=== PATIENT | female | born 1945 | race Caucasian/White ===

== ENCOUNTER 2020-10-12 08:19 | Outpatient (REF) | payer MEDICARE, OTHER, SELFPAY ==
[2020-10-12 10:44] LABS: Appearance Urine CLOUDY; Color Urine YELLOW; Glucose Urine UA NEG (NEG); Leukocyte Esterase Urine 3+ (NEG); Nitrite Urine NEG (NEG); PH 7.5 (5.0-8.0); Urine Blood NEG (NEG); Urine Ketones NEG (NEG); Urine Protein NEG (NEG-TRACE)
[2020-10-12 10:46] LABS: Hematocrit 45.6 % (37-47); Hemoglobin 14.3 g/dl (12.0-16.0); Mean Corpuscular HGB Conc 31.4 g/dl (31.0-35.0); Mean Corpuscular Hemoglobin 26.7 pg (27.0-33.0); Mean Corpuscular Volume 85.2 fL (80-98); Mean Platelet Volume 10.3 fL (9.4-12.3); Platelet Count 307 X10*3/uL (160-400); Red Blood Count 5.35 X10*6/uL (4.20-5.50); White Blood Count 6.4 X10*3/uL (4.8-10.8)
[2020-10-12 11:09] LABS: Alanine Aminotransferase 15 U/L (0-31); Albumin Level 4.8 g/dL (3.5-5.0); Alkaline Phosphatase 94 U/L (39-117); Amorphous Sediment Urine 2+ /LPF; Anion Gap 13 (12-20); Aspartate Amino Transferase 25 U/L (5-31); Bacteria Urine 2+ /LPF; Bilirubin Total 0.5 mg/dL (0.0-1.0); Blood Urea Nitrogen 15 mg/dL (9-16); Calcium 9.4 mg/dL (8.4-10.2); Carbon Dioxide 30 mmol/L (22-29); Chloride 101 mmol/L (96-108); Cholesterol 163 mg/dL; Estimated Glomerular Filt Rate > 60; Glucose Fasting 92 mg/dL (60-99); HDL Cholesterol 53 mg/dL; LDL Cholesterol Calculated 79 mg/dl; Potassium 4.6 mmol/l (3.3-5.1); RBC Urine 0 /HPF (0); Sodium 139 mmol/L (135-145); Squamous Epithelial Cell Urine 4+ /LPF; Total Protein 7.3 g/dL (6.5-8.0); Triglycerides 156 mg/dL
[2020-10-12 11:29] LABS: Vitamin D 25-OH Total 47.1 ng/mL (>30)
== END 2020-10-12 08:20 | disposition home or self-care (01) ==
LOC: HO.10HDL 08:19
PROVIDERS: PCP Internal Medicine; Visit Provider Internal Medicine
DX: E78.2 Mixed hyperlipidemia (principal); I10 Essential (primary) hypertension; R73.01 Impaired fasting glucose; K21.9 Gastro-esophageal reflux disease without esophagitis; E55.9 Vitamin D deficiency, unspecified
CPT/HCPCS: 36415; 80053; 80061; 81001; 82306; 84443; 85027

== ENCOUNTER 2020-11-11 13:52 | Outpatient (REF) | payer MEDICARE, OTHER, SELFPAY ==
--- NOTE | 2020-11-11 14:02 | MM_ITS ---
EXAMINATION: BONE DENSITOMETRY CLINICAL INDICATION: Asymptomatic menopausal state. COMPARISON: Previous BD dated 02/10/2014 (spine), 07/02/2018 (left hip) and baseline BD dated 09/14/2006. TECHNIQUE: Using a [employer] DXA System (software version: 13.1) manufactured by [employer], dual-energy x-ray absorptiometry was performed of the lumbar spine and left hip. The images are of good technical quality. Summary results are attached. FINDINGS: AP SPINE L1-L4: Current: BMD 1.103 g/cm2, Z-score 1.4, T-score -0.6, normal, 2.5% increase from previous, 11.0% increase from baseline (<5% change is not significant). Prior: BMD 1.076 g/cm2. Baseline: BMD 0.994 g/cm2. LEFT FEMUR, NECK: Current: BMD 0.719 g/cm2, Z-score -0.2, T-score -2.3, osteopenia. Prior: BMD 0.734 g/cm2. Baseline: BMD 0.799 g/cm2. LEFT FEMUR, TOTAL: Current: BMD 0.888 g/cm2, Z-score 1.0, T-score -0.9, normal, 3.4% decrease from previous, 5.6% decrease from baseline (<5% change is not significant). Prior: BMD 0.919 g/cm2. Baseline: BMD 0.941 g/cm2. IDENTIFIED RISK FACTORS: Menopause. HISTORY OF FRACTURE: Other. MEDICATIONS: Calcium supplements or multivitamin, vitamin D, ERT/SERMS. MM/XR DEXA axial skeleton IMPRESSION: 1. DIAGNOSIS: Osteopenia based on the lowest T-score value of -2.3 in the femoral neck applying World Health Organization criteria. 2. 10-YEAR FRACTURE RISK PREDICTION, FRAX: The patient's 10-year probability of a major osteoporotic fracture, defined as a clinical spine, forearm, hip or shoulder fracture is 22.2% and the patient's 10-year probability of hip fracture is 6.0%. 3. Treatment Recommendations: NOF guidelines recommend consideration for treatment in postmenopausal women and men age 50 and older presenting with the following: -A hip or vertebral (clinical or morphometric) fracture. -T-score less than or equal to -2.5 at the femoral neck or spine after appropriate evaluation to exclude secondary causes. -Low bone mass at the hip or spine and a 10-year fracture probability by FRAX of greater than or equal to 3% for hip fracture or greater than or equal to 20% for major osteoporotic fracture based on the [place] adapted WHO algorithm. 4. Other Recommendations: All treatment decisions require clinical judgment and consideration of individual patient factors, including patient preferences, comorbidities, previous drug use, risk factors not captured in the FRAX model (e.g. frailty, falls, vitamin D deficiency, increased bone turnover, interval significant decline in bone density) and possible under or overestimation of fracture risk by FRAX. Additional medical evaluation for secondary cause of low bone mineral density may be appropriate. FUTURE SCAN RECOMMENDATION: People with diagnosed cases of osteoporosis or at high risk for fracture should have regular bone mineral density tests. For patients eligible for Medicare, routine testing is allowed once every 2 years. The testing frequency can be increased to one year for patients who have rapidly progressing disease, those who are receiving or discontinuing medical therapy to restore bone mass, or have additional risk factors.
--- NOTE | 2020-11-11 14:03 | MM_ITS ---
EXAMINATION: MM SCREENING DIGITAL BREAST TOMOSYNTHESIS, BILATERAL CLINICAL INFORMATION: Screening. Asymptomatic. The lifetime risk of breast cancer based on the Tyrer-Cuzick Model is 2%. COMPARISON: Mammography: 07/04/2018, 11/24/2015 TECHNIQUE: Digital breast tomosynthesis is performed in both the craniocaudal and mediolateral oblique views along with computer-aided detection (CAD). Synthesized 2D images are generated from the tomosynthesis. Additional left MLO view is provided. FINDINGS: There are scattered areas of fibroglandular density (ACR BI-RADS breast composition Category b). The right CC view has nodular asymmetric density mid outer quadrant 7 cm from nipple without correlate on MLO view. Patient will be recalled to further characterize. The remainder of the bilateral breasts show no significant mass or architectural abnormality or developing density. There are scattered benign round and coarse calcifications. Grouped coarse calcifications upper outer left breast are coarser on current imaging suggesting areas of degenerating fibroadenoma. The axilla and skin contours are unremarkable. MM/MM tomosynthesis screening BI IMPRESSION: 1. Right: Nodular asymmetric density mid outer breast on CC view. 2. Left: No mammographic evidence of malignancy. ASSESSMENT: BI-RADS 0: Incomplete - Need Additional Imaging Evaluation RECOMMENDATION: 1. Additional views of the right breast (3-D spot CC, 3-D rolled CC x2). 2. Targeted ultrasound if warranted after review of the additional views. 3. Radiology department staff will contact the patient for additional imaging. This patient's information was entered into a reminder system with a target due date for their next mammogram.
== END 2020-11-11 13:53 | disposition home or self-care (01) ==
LOC: HO.MAMMO 13:52
PROVIDERS: PCP Internal Medicine; Visit Provider Internal Medicine
DX: Z12.31 Encounter for screening mammogram for malignant neoplasm of breast (principal); Z13.820 Encounter for screening for osteoporosis; N95.9 Unspecified menopausal and perimenopausal disorder; Z78.0 Asymptomatic menopausal state
CPT/HCPCS: 77063; 77067; 77080

== ENCOUNTER 2020-12-13 09:20 | Outpatient (REF) | payer MEDICARE, OTHER, SELFPAY ==
--- NOTE | ~2020-12-13 | MM_ITS ---
EXAMINATION: MM DIAGNOSTIC DIGITAL BREAST TOMOSYNTHESIS, RIGHT CLINICAL INFORMATION: Recall from screening for nodular asymmetric density limited to one view at recent screening. TC score 2%. COMPARISON: Mammography: 11/11/2020, 07/04/2018, 11/24/2015. TECHNIQUE: Digital breast tomosynthesis is performed. 2D images are generated from the tomosynthesis. The following views are obtained: 3-D rolled CC x2, 3-D spot CC, 3-D ML. FINDINGS: There are scattered areas of fibroglandular density (ACR BI-RADS breast composition Category b). The additional views show no mass or architectural abnormality. The area of interest appears to splay of the additional views. As a precaution, patient will be reassessed again in 6 months to exclude the remote possibility of a developing density compared with prior 2-D imaging. Results are discussed with the patient at time of visit. MM/MM tomosynthesis added views R IMPRESSION: Additional views show no definite persistent asymmetric density. ASSESSMENT: BI-RADS 3: Probably Benign RECOMMENDATION: Diagnostic right mammography in 6 months. This patient's information was entered into a reminder system with a target due date for their next mammogram.
== END 2020-12-13 09:21 | disposition home or self-care (01) ==
LOC: HO.MAMMO 09:20
PROVIDERS: Visit Provider Internal Medicine
DX: R92.2 Inconclusive mammogram (principal)
CPT/HCPCS: 77061; 77065

== ENCOUNTER → 2021-01-12 08:12 | Outpatient (REF) | payer MEDICARE, OTHER, SELFPAY ==
--- NOTE | 2021-01-12 08:30 | CA_ITS ---
Transthoracic Echocardiogram Patient (Last, First, Middle): Richa Smith, Gender: Female Date of : 1945 Age: 75 Procedure Date: 01/12/2021 Procedure Type: Transthoracic Echocardiogram Location: OP Height: 147.32 cm Weight: 56.7 kg BSA: 1.49 m2 Heart Rate: bpm BP: 143 / 74 mmHg Workers Compensation Manager: LEATHA Lowe MD: Antoine Resendez MD Salesperson Floor Coverings: Antoine Resendez MD Symptoms: I35.0 NON RHEUMATIC AVS I10 HTN Study Quality: Fair ECG Rhythm: Sinus Conclusions: - 1. Normal LV systolic function with severe focal basal septal asymmetric hypertrophy without obstruction with impaired relaxation filling pattern 2. Moderate aortic stenosis 3. Normal RV systolic pressure 4. No pericardial effusion Findings Left Ventricle Normal left ventricular size, thickness, and systolic function. The visually estimated ejection fraction is between 60-65%. Spectral Doppler is indicative of an impaired relaxation filling pattern. E/E prime ratio is between 8 and 15 consistent with indeterminate filling pressures. Right Ventricle Normal right ventricular cavity size and systolic function. Atria Both atria are normal in size. Interatrial shunt cannot be excluded. Aortic Valve There is moderate calcification of the aortic valve. There is moderate aortic valve stenosis. The peak aortic gradient is 43 mmHg.The mean gradient is 24 mmHg. The aortic valve area is 0.85 cm2. There is no aortic valve regurgitation. Mitral Valve There is mild anterior and posterior mitral leaflet thickening. There is trace mitral valve regurgitation. There is no mitral valve stenosis. Tricuspid Valve Likely normal tricuspid valve structure and function. There is mild tricuspid valve regurgitation. The right ventricular systolic pressure is normal. The right ventricular systolic pressure is 26 mmHg. Normal right atrial pressure. There is no evidence of pulmonary hypertension. Great Vessels All visible segments of the aorta are normal in size. The pulmonary artery was not well visualized. Venous The inferior vena cava is normal in size and collapses greater than 50% with inspiration. Pericardium/Pleural There is no evidence of pericardial effusion. Prior Study Comparison No significant change compared to prior study dated: 07/27/2020. Measurements 2D Linear Measurements IVSd: 0.88 0.6-0.9/0.6-1.0 cm LVIDd: 3.00 3.9-5.3/4.2-5.9 cm LVIDd Index: 2.01 2.4-3.2/2.2-3.1 cm/m2 LVIDs: 1.98 2.0-3.6 cm LVPWd: 0.93 0.7-1.1 cm Ao Root: 3.30 2.1-3.5 cm LA Diam: 3.20 2.7-3.8/3.0-4.0 cm LAIDs Index: 2.15 1.5-2.3 cm/m2 LV Mass: 87.66 67-162/88-224 g LV Mass Index: 58.83 43-95/49-115 g/m2 LVOT Diam: 1.90 3.0+(-)1.3 cm 2D Systolic Function EF 4C: 64.70 >55% EF 2C: 62.50 >55% EF BiP: 63.30 >55% Mitral Valve MV Pk E: 0.51 MV PK A: 0.86 MV Decel Time: 222.00 E/A: 0.60 E'Lateral: 5.22 E'Medial: 5.42 E/E' Med: 9.40 E/E' Lat: 9.80 PHT: 65.00 MVA PHT: 3.38 Decel [place]: 2.30 Aortic Valve AoV Pk Yonas: 3.28 AoV Mn Yonas: 2.30 AoV VTI: 0.66 AoV Pk Grad: 43.00 Aov Mn Grad: 24.00 GENEVA Cont.VTI: 0.85 LVOT LVOT Pk Yonas: 0.83 LVOT Mn Yonas: 0.66 LVOT VTI: 0.20 LVOT Pk Grad: 3.00 LVOT Mn Grad: 2.00 LVOT Diam: 1.90 LVOT Area: 2.84 Diastolic Function MV Pk E: 0.51 MV Pk A: 0.86 E/A: 0.60 E'Medial: 5.42 E/E' Med: 9.40 E' Laterial: 5.22 E/E' Lat: 9.80 Tricuspid Valve TR Pk Yonas: 2.38 TR Pk Grad: 23.00 RA Press: 3.00 RVSP: 26.00 Great Vessels Aorta Ao Root-2D: 3.30 2.0-3.7 cm Ao Asc: 3.30 2.1-3.4 cm Ao Arch: 2.00 Updated in Other Vendor System with Status of Final Antoine Resendez MD electronically signed on 01/12/2021 5:35:23 PM with status of Final
== END ==
LOC: HO.CARD 08:12
PROVIDERS: Visit Provider Internal Medicine Cardiovascular Disease
DX: I35.0 Nonrheumatic aortic (valve) stenosis (principal); I10 Essential (primary) hypertension
CPT/HCPCS: 93306

== ENCOUNTER → 2021-02-01 14:09 | Outpatient (BNVA) | payer MEDICARE, OTHER, SELFPAY | PROVIDERS: PCP Internal Medicine; Visit Provider Internal Medicine Cardiovascular Disease | DX: I35.0 Nonrheumatic aortic (valve) stenosis (principal); I10 Essential (primary) hypertension | CPT/HCPCS: 99212 ==

== ENCOUNTER 2021-03-15 11:29 | Outpatient (REF) | payer MEDICARE, OTHER, SELFPAY ==
[2021-03-15 12:25] LABS: Glucose Urine UA NEG (NEG); Leukocyte Esterase Urine 2+ (NEG); Nitrite Urine NEG (NEG); Urine Blood 3+ (NEG); Urine Ketones NEG (NEG); Urine Protein 1+ MG/DL (NEG-TRACE)
[2021-03-15 12:26] LABS: Appearance Urine CLOUDY; Color Urine YELLOW
[2021-03-15 13:10] LABS: Bacteria Urine 1+ /LPF; RBC Urine TNTC /HPF (0); Squamous Epithelial Cell Urine 2+ /LPF; WBC Urine 50-75 /HPF (0-4)
== END 2021-03-15 11:30 | disposition home or self-care (01) ==
LOC: HO.LAB 11:29
PROVIDERS: PCP Internal Medicine; Visit Provider Internal Medicine
DX: R30.0 Dysuria (principal); R31.9 Hematuria, unspecified
CPT/HCPCS: 81001; 87086; 87088; 87186

== ENCOUNTER 2021-04-13 07:51 | Outpatient (REF) | payer MEDICARE, OTHER, SELFPAY ==
[2021-04-13 08:37] LABS: MANUAL DIFF FLAG NO
[2021-04-13 08:46] LABS: Glucose Urine UA NEG (NEG); Leukocyte Esterase Urine NEG (NEG); Nitrite Urine NEG (NEG); Specific Gravity - Urine 1.015 (1.005-1.025); Urine Blood NEG (NEG); Urine Ketones NEG (NEG); Urine Protein NEG (NEG-TRACE)
[2021-04-13 08:47] LABS: Appearance Urine CLEAR; Color Urine YELLOW
[2021-04-13 08:48] LABS: Basophils Absolute Auto 0.1 X10*3/uL (0.0-0.2); Basophils Percent Auto 0.8 % (0-2); Eosinophils Absolute Auto 0.3 X10*3/uL (0.0-0.4); Eosinophils Percent Auto 4.3 % (0-4); Hematocrit 45.3 % (37-47); Hemoglobin 14.3 g/dl (12.0-16.0); Imm Gran Abs Auto 0.03 X10*3/uL (0.00-0.03); Imm Gran Pct Auto 0.5 % (0.0-0.4); Lymphocytes Absolute Auto 1.3 X10*3/uL (1.2-4.9); Lymphocytes Percent Auto 20.3 % (20-40); Mean Corpuscular HGB Conc 31.6 g/dl (31.0-35.0); Mean Corpuscular Hemoglobin 26.5 pg (27.0-33.0); Mean Corpuscular Volume 83.9 fL (80-98); Mean Platelet Volume 10.1 fL (9.4-12.3); Monocytes Absolute Auto 0.6 X10*3/uL (0.1-1.2); Monocytes Percent Auto 8.9 % (2-11); Neutrophils Absolute Auto 4.1 X10*3/uL (2.0-8.3); Neutrophils Percent Auto 65.2 % (45-73); Platelet Count 256 X10*3/uL (160-400); Red Cell Distribution Width 14.6 % (11.0-16.0); White Blood Count 6.3 X10*3/uL (4.8-10.8)
[2021-04-13 08:53] LABS: Estimated Average Glucose 120 mg/dL; Hemoglobin A1C 150.8021 umol/L; Hemoglobin A1c % 5.8 %
[2021-04-13 09:02] LABS: Alanine Aminotransferase 13 U/L (0-31); Albumin Level 4.6 g/dL (3.5-5.0); Alkaline Phosphatase 65 U/L (39-117); Anion Gap 12 (12-20); Aspartate Amino Transferase 24 U/L (5-31); Bilirubin Total 0.5 mg/dL (0.0-1.0); Blood Urea Nitrogen 17 mg/dL (9-16); Calcium 9.8 mg/dL (8.4-10.2); Carbon Dioxide 30 mmol/L (22-29); Chloride 103 mmol/L (96-108); Cholesterol 183 mg/dL; Estimated Glomerular Filt Rate > 60; Glucose Random 95 mg/dL (60-115); HDL Cholesterol 57 mg/dL; LDL Cholesterol Calculated 88 mg/dl; Potassium 4.5 mmol/L (3.3-5.1); Sodium 140 mmol/L (135-145); Triglycerides 192 mg/dL
[2021-04-13 09:26] LABS: Thyroid Stimulating Hormone 1.02 uIU/mL (0.32-4.0)
== END 2021-04-13 07:52 | disposition home or self-care (01) ==
LOC: HO.LAB 07:51
PROVIDERS: PCP Internal Medicine; Visit Provider Internal Medicine
DX: I10 Essential (primary) hypertension (principal); M89.49 Other hypertrophic osteoarthropathy, multiple sites; E78.2 Mixed hyperlipidemia; R73.01 Impaired fasting glucose; R35.1 Nocturia
CPT/HCPCS: 36415; 80053; 80061; 81003; 83036; 84443; 85025

== ENCOUNTER 2021-06-29 13:16 | Outpatient (REF) | payer MEDICARE, OTHER, SELFPAY ==
--- NOTE | ~2021-06-29 | MM_ITS ---
EXAMINATION: MM DIAGNOSTIC DIGITAL BREAST TOMOSYNTHESIS, RIGHT CLINICAL INFORMATION: Short interval follow-up for question of asymmetric density mid outer right breast. Assess for developing density. The lifetime risk of breast cancer based on the Tyrer-Cuzick Model is 2%. COMPARISON: Mammography: 12/13/2020, 11/11/2020 (BI-RADS 0), 07/04/2018, 11/24/2015, 02/10/2014 TECHNIQUE: Digital breast tomosynthesis is performed in both the craniocaudal and mediolateral oblique views along with computer-aided detection (CAD). Synthesized 2D images are generated from the tomosynthesis. FINDINGS: There are scattered areas of fibroglandular density (ACR BI-RADS breast composition Category b). Parenchymal pattern is similar to prior studies. Fibroglandular densities central outer right breast on CC view are similar to remote prior mammography. There is no interval developing density. Breasts will be reassessed again at time of annual bilateral mammography, due in 6 months. The remainder of the right breast shows no interval mass or architectural changes. No abnormal calcifications. The axilla and skin contours are unremarkable. Results are provided to the patient at time of visit by the technologist. MM/MM tomosynthesis diagnostic RT IMPRESSION: No developing density. No significant changes. ASSESSMENT: BI-RADS 3: Probably Benign RECOMMENDATION: Diagnostic mammography at time of annual bilateral exam, due in 6 months. This patient's information was entered into a reminder system with a target due date for their next mammogram.
== END 2021-06-29 13:17 | disposition home or self-care (01) ==
LOC: HO.MAMMO 13:16
PROVIDERS: Visit Provider Internal Medicine
DX: R92.1 Mammographic calcification found on diagnostic imaging of breast (principal)
CPT/HCPCS: 77061; 77065

== ENCOUNTER → 2021-07-28 14:37 | Outpatient (BNVA) | payer MEDICARE, OTHER, SELFPAY | PROVIDERS: PCP Internal Medicine; Referring Provider Internal Medicine; Visit Provider Internal Medicine Cardiovascular Disease | DX: I35.0 Nonrheumatic aortic (valve) stenosis (principal); I10 Essential (primary) hypertension | CPT/HCPCS: 93005; 99212 ==

== ENCOUNTER 2021-10-05 07:33 | Outpatient (REF) | payer MEDICARE, OTHER, SELFPAY ==
[2021-10-05 10:11] LABS: MANUAL DIFF FLAG NO
[2021-10-05 10:17] LABS: Basophils Absolute Auto 0.1 X10*3/uL (0.0-0.2); Basophils Percent Auto 0.9 % (0-2); Eosinophils Absolute Auto 0.3 X10*3/uL (0.0-0.4); Eosinophils Percent Auto 4.2 % (0-4); Hematocrit 43.9 % (37.0-47.0); Hemoglobin 13.9 g/dl (12.0-16.0); Imm Gran Abs Auto 0.04 X10*3/uL (0.00-0.03); Imm Gran Pct Auto 0.6 % (0.0-0.4); Lymphocytes Absolute Auto 1.7 X10*3/uL (1.2-4.9); Lymphocytes Percent Auto 26.1 % (20-40); Mean Corpuscular HGB Conc 31.7 g/dl (31.0-35.0); Mean Corpuscular Hemoglobin 26.5 pg (27.0-33.0); Mean Corpuscular Volume 83.8 fL (80.0-98.0); Mean Platelet Volume 10.5 fL (9.4-12.3); Monocytes Absolute Auto 0.6 X10*3/uL (0.1-1.2); Monocytes Percent Auto 9.7 % (2-11); Neutrophils Absolute Auto 3.7 x10*3/uL (2.0-8.3); Neutrophils Percent Auto 58.5 % (45-73); Platelet Count 275 X10*3/uL (160-400); Red Blood Count 5.24 X10*6/uL (4.20-5.50); Red Cell Distribution Width 14.4 % (11.0-16.0); White Blood Count 6.4 X10*3/uL (4.8-10.8)
[2021-10-05 10:27] LABS: Estimated Average Glucose 123 mg/dL; Hemoglobin A1c % 5.9 %
[2021-10-05 11:01] LABS: Alanine Aminotransferase 19 U/L (0-31); Albumin Level 4.5 g/dL (3.5-5.0); Alkaline Phosphatase 70 U/L (39-117); Anion Gap 13 (12-20); Aspartate Amino Transferase 28 U/L (5-31); Bilirubin Total 0.6 mg/dL (0.0-1.0); Blood Urea Nitrogen 17 mg/dL (9-16); Calcium 9.7 mg/dL (8.4-10.2); Carbon Dioxide 27 mmol/L (22-29); Chloride 103 mmol/L (96-108); Cholesterol 182 mg/dL; Estimated Glomerular Filt Rate > 60; Glucose Fasting 91 mg/dL (60-99); HDL Cholesterol 51 mg/dL; LDL Cholesterol Calculated 95 mg/dl; Potassium 4.4 mmol/L (3.3-5.1); Sodium 139 mmol/L (135-145); Total Protein 7.1 g/dL (6.5-8.0); Triglycerides 181 mg/dL
[2021-10-05 11:04] LABS: Thyroid Stimulating Hormone 1.64 uIU/mL (0.32-4.0)
== END 2021-10-05 07:34 | disposition home or self-care (01) ==
LOC: HO.10HDL 07:33
PROVIDERS: Visit Provider Internal Medicine
DX: I10 Essential (primary) hypertension (principal); E78.00 Pure hypercholesterolemia, unspecified; D17.71 Benign lipomatous neoplasm of kidney; R73.01 Impaired fasting glucose
CPT/HCPCS: 36415; 80053; 80061; 83036; 84443; 85025

== ENCOUNTER 2022-01-02 12:06 | Outpatient (REF) | payer MEDICARE, OTHER, SELFPAY ==
--- NOTE | ~2022-01-02 | MM_ITS ---
EXAMINATION: MM DIAGNOSTIC DIGITAL BREAST TOMOSYNTHESIS, BILATERAL CLINICAL INFORMATION: Due for yearly. Also follow-up question of asymmetric density mid outer right breast. Exclude developing density. The lifetime risk of breast cancer based on the Tyrer-Cuzick Model is 2%. COMPARISON: Mammography: 06/29/2021, 12/13/2020, 11/11/2020 (BI-RADS 0), 07/04/2018 TECHNIQUE: Digital breast tomosynthesis is performed in both the craniocaudal and mediolateral oblique views along with computer-aided detection (CAD). Synthesized 2D images are generated from the tomosynthesis. FINDINGS: There are scattered areas of fibroglandular density (ACR BI-RADS breast composition Category b). Parenchymal pattern is similar to prior studies. The nodular asymmetric density mid outer right breast is less conspicuous, decreased. There is no developing density or interval mass or architectural abnormality. Right breast will be reassessed again at next bilateral annual mammography to conclude long-term surveillance. The remainder of the bilateral breasts are similar to prior studies. Again, there are scattered bilateral benign isolated and grouped coarse calcifications. Low right axillary tail nodes are stable. The axilla and skin contours are unremarkable. Results are provided to the patient at time of visit by the technologist. MM/MM tomosynthesis diagnostic BI IMPRESSION: 1. No significant changes from prior studies. 2. No developing density mid outer right breast. Finding for follow-up left conspicuous, no longer clearly visualized. ASSESSMENT: BI-RADS 3: Probably Benign RECOMMENDATION: Diagnostic mammography at time of next annual exam, due in 12 months. This patient's information was entered into a reminder system with a target due date for their next mammogram.
== END 2022-01-02 12:07 | disposition home or self-care (01) ==
LOC: HO.MAMMO 12:06
PROVIDERS: PCP Internal Medicine; Visit Provider Internal Medicine
DX: R92.2 Inconclusive mammogram (principal)
CPT/HCPCS: 77062; 77066

== ENCOUNTER → 2022-01-24 09:34 | Outpatient (REF) | payer MEDICARE, OTHER, SELFPAY ==
--- NOTE | 2022-01-24 09:38 | CA_ITS ---
Transthoracic Echocardiogram Patient (Last, First, Middle): Richa Smith, Gender: Female Date of : 1945 Age: 76 Procedure Date: 01/24/2022 Procedure Type: Transthoracic Echocardiogram Location: OP Height: 152.4 cm Weight: 56.7 kg BSA: 1.53 m2 Heart Rate: bpm BP: 136 / 78 mmHg Penology Teacher: GEETA Referring MD: Antoine Resendez MD Symptoms: I35.0 - Nonrheumatic aortic (valve) stenosis Study Quality: Fair ECG Rhythm: Sinus Conclusions: - The left ventricular systolic function is normal. The calculated ejection fraction is 65% by biplane method. - There is moderate to severe aortic valve stenosis. - There is moderate mitral annular calcification. Findings Left Ventricle Normal left ventricular cavity size. The left ventricular systolic function is normal. The calculated ejection fraction is 65% by biplane method. There is no evidence of regional wall motion abnormalities. Evidence suggests grade I (mild) diastolic dysfunction. There is severe septal and severe basal asymmetric hypertrophy. Right Ventricle Normal right ventricular cavity size and systolic function. Atria The left atrium is moderately dilated. The right atrium is normal in size. Aortic Valve There is moderate calcification of the aortic valve. There is moderate to severe aortic valve stenosis. The mean gradient is 25 mmHg. The aortic valve area is 0.84 cm2. There is mild aortic valve regurgitation. Dimensionless index 0.31. Stroke volume index 46ml. Mitral Valve There is moderate mitral annular calcification. There is trace mitral valve regurgitation. There is no mitral valve stenosis. Pulmonic Valve The pulmonic valve was not well visualized. Tricuspid Valve There is trace tricuspid valve regurgitation. The pulmonary artery systolic pressure is normal. Great Vessels The asc aorta and aortic arch are normal in size. Venous The inferior vena cava is normal in size and collapses greater than 50% with inspiration. Pericardium/Pleural There is no evidence of pericardial effusion. Prior Study Comparison No significant change compared to prior study dated: 01/12/2021. Measurements 2D Linear Measurements IVSd: 0.90 0.6-0.9/0.6-1.0 cm LVIDd: 3.42 3.9-5.3/4.2-5.9 cm LVIDd Index: 2.24 2.4-3.2/2.2-3.1 cm/m2 LVIDs: 2.07 2.0-3.6 cm LVPWd: 0.98 0.7-1.1 cm LA Diam: 3.30 2.7-3.8/3.0-4.0 cm LAIDs Index: 2.16 1.5-2.3 cm/m2 LV Mass: 113.06 67-162/88-224 g LV Mass Index: 73.89 43-95/49-115 g/m2 LVOT Diam: 1.90 3.0+(-)1.3 cm 2D Systolic Function EF 4C: 67.70 >55% EF 2C: 62.70 >55% EF BiP: 64.90 >55% Mitral Valve E'Lateral: 5.77 E'Medial: 4.13 Aortic Valve AoV Pk Yonas: 3.27 AoV Mn Yonas: 2.40 AoV VTI: 0.83 AoV Pk Grad: 43.00 Aov Mn Grad: 25.00 GENEVA Cont.VTI: 0.84 AI Pk Yonas: 4.08 AI [place]: 2.35 LVOT LVOT Pk Yonas: 1.02 LVOT Mn Yonas: 0.75 LVOT VTI: 0.25 LVOT Pk Grad: 4.00 LVOT Mn Grad: 2.00 LVOT Diam: 1.90 LVOT Area: 2.84 Diastolic Function E'Medial: 4.13 E' Laterial: 5.77 Right Ventricle TAPSE (mm): 2.13 TVS' Yonas: 10.30 Tricuspid Valve TR Pk Yonas: 2.29 TR Pk Grad: 21.00 RA Press: 3.00 RVSP: 24.00 Great Vessels Aorta Sinus of Valsalva: 3.20 2.0-3.[address] [place]: 2.32 1.7-3.4 cm Ao Asc: 3.30 2.1-3.4 cm Ao Arch: 2.70 Updated in Other Vendor System with Status of Final Calos Stovall MD electronically signed on 01/25/2022 1:44:13 PM with status of Final
== END ==
LOC: HO.CARD 09:34
PROVIDERS: PCP Internal Medicine; Visit Provider Internal Medicine Cardiovascular Disease
DX: I35.0 Nonrheumatic aortic (valve) stenosis (principal)
CPT/HCPCS: 93306

== ENCOUNTER → 2022-01-26 10:25 | Outpatient (BNVA) | payer MEDICARE, OTHER, SELFPAY | PROVIDERS: PCP Internal Medicine; Referring Provider Internal Medicine; Visit Provider Internal Medicine Cardiovascular Disease | DX: Z01.810 Encounter for preprocedural cardiovascular examination (principal); I35.0 Nonrheumatic aortic (valve) stenosis | CPT/HCPCS: 93005; 99212 ==

== ENCOUNTER → 2022-02-03 08:53 | Outpatient (REF) | payer MEDICARE, OTHER, SELFPAY ==
--- NOTE | ~2022-02-03 | NM_ITS ---
Lexiscan Myocardial perfusion study Indication: Preoperative cardiovascular evaluation, aortic stenosis Technique: The patient was brought in for a Lexiscan perfusion study on 02/03/2022 and was injected 0.4 mg of Lexiscan intravenously. Within a minute of this injection 25 mCi of sestamibi was given intravenously. Images were obtained using the SPECT gamma camera interlaced with the gating device. Images were obtained in supine position. Resting perfusion study was performed on 02/06/2022. Patient was administered 25 mCi of sestamibi intravenously at rest. Images were then obtained in supine position. Total DLP 89mGy-cm. Images were processed with the software and compared side to side in short axis, horizontal long axis and vertical long axis views. Findings: Raw acquisition was reviewed. The stress perfusion study showed no significant perfusion abnormality. Both uncorrected as well as CT attenuation corrected images were reviewed. The gated study shows normal LV systolic function with calculated LVEF of 55%. LV cavity is normal in size. The gated study shows normal wall thickening and contraction of segments. Resting study shows no significant perfusion abnormality. Gating at rest reveals normal wall motion with ejection fraction at 68%. The findings are consistent with no reversible or fixed perfusion abnormality. NM/NM markus perf SPECT rest & str Impression: 1. Myocardial perfusion imaging study shows normal myocardial perfusion. 2. Gated LVEF is 55% during stress and 68% during rest. 3. Transient ischemic dilatation not present. EKG component of the test reported separately.
--- NOTE | 2022-02-03 08:58 | CA_ITS ---
Acquisition Time: 2022-02-03 09:06:17 Total Exercise Time: 00:02:00 Test Indications: Pre-Op Evaluation,AORTIC STENOSI Medications: Protocol: LEXISCAN Max HR: 134 BPM 92% of Pred: 145 BPM Max BP: 122/068 mmHG Max Work Load: 1.6 METS Pharmacological stress test with Lexiscan injection, while walking on treadmill, with report of mild anterior chest tightness post injection, with isolated PACs, with normotensive response to injection, with nondiagnostic EKG for ischemia. In recovery she could still feel something in chest and mild lightheadedness that as treated with Aminophylline 75mg IVP to reverse Lexiscan with resolution of symptoms. Nuclear images pending. Test reviewed with Dr Stovall. Referred By: Antoine Resendez Overread By: BRIDGER MARTINEZ
== END ==
LOC: HO.CARD 08:53
PROVIDERS: PCP Internal Medicine; Visit Provider Internal Medicine Cardiovascular Disease
DX: Z01.810 Encounter for preprocedural cardiovascular examination (principal)
CPT/HCPCS: 78452; 93017; A9500; J0280; J2785

== ENCOUNTER 2022-04-18 07:44 | Outpatient (REF) | payer MEDICARE, OTHER, SELFPAY ==
[2022-04-18 08:51] LABS: Appearance Urine HAZY; Color Urine YELLOW; Glucose Urine UA NEG (NEG); Leukocyte Esterase Urine TRACE (NEG); Nitrite Urine NEG (NEG); Urine Blood NEG (NEG); Urine Ketones NEG (NEG); Urine Protein NEG (NEG-TRACE)
[2022-04-18 09:00] LABS: RBC Urine 0-2 /HPF (0); Renal Epithelial Cells Urine TRACE /LPF; Squamous Epithelial Cell Urine TRACE /LPF
[2022-04-18 09:08] LABS: MANUAL DIFF FLAG NO
[2022-04-18 09:29] LABS: Basophils Percent Auto 0.7 % (0-2); Eosinophils Absolute Auto 0.3 X10*3/uL (0.0-0.4); Eosinophils Percent Auto 5.6 % (0-4); Hematocrit 43.9 % (37.0-47.0); Hemoglobin 13.8 g/dl (12.0-16.0); Imm Gran Abs Auto 0.03 X10*3/uL (0.00-0.03); Imm Gran Pct Auto 0.5 % (0.0-0.4); Lymphocytes Absolute Auto 1.7 X10*3/uL (1.2-4.9); Mean Corpuscular HGB Conc 31.4 g/dl (31.0-35.0); Mean Corpuscular Hemoglobin 26.4 pg (27.0-33.0); Mean Corpuscular Volume 84.1 fL (80.0-98.0); Mean Platelet Volume 10.1 fL (9.4-12.3); Monocytes Absolute Auto 0.7 X10*3/uL (0.1-1.2); Monocytes Percent Auto 11.4 % (2-11); Neutrophils Absolute Auto 3.2 x10*3/uL (2.0-8.3); Neutrophils Percent Auto 53.8 % (45-73); Platelet Count 277 X10*3/uL (160-400); Red Blood Count 5.22 X10*6/uL (4.20-5.50); Red Cell Distribution Width 14.3 % (11.0-16.0)
[2022-04-18 09:48] LABS: Estimated Average Glucose 120 mg/dL; Hemoglobin A1c % 5.8 %
[2022-04-18 09:49] LABS: Alanine Aminotransferase 20 U/L (0-31); Albumin Level 4.8 g/dL (3.5-5.0); Alkaline Phosphatase 66 U/L (39-117); Anion Gap 13 (12-20); Aspartate Amino Transferase 26 U/L (5-31); Bilirubin Total 0.5 mg/dL (0.0-1.0); Blood Urea Nitrogen 18 mg/dL (9-16); Calcium 10.1 mg/dL (8.4-10.2); Carbon Dioxide 28 mmol/L (22-29); Chloride 103 mmol/L (96-108); Cholesterol 186 mg/dL; Estimated Glomerular Filt Rate > 60; Glucose Random 97 mg/dL (60-115); HDL Cholesterol 57 mg/dL; LDL Cholesterol Calculated 100 mg/dl; Sodium 139 mmol/L (135-145); Total Protein 7.5 g/dL (6.5-8.0); Triglycerides 146 mg/dL
[2022-04-18 10:18] LABS: Thyroid Stimulating Hormone 0.99 uIU/mL (0.32-4.0)
== END 2022-04-18 07:45 | disposition home or self-care (01) ==
LOC: HO.LAB 07:44
PROVIDERS: PCP Internal Medicine; Visit Provider Internal Medicine
DX: N30.00 Acute cystitis without hematuria (principal); E78.2 Mixed hyperlipidemia; I10 Essential (primary) hypertension; R73.01 Impaired fasting glucose
CPT/HCPCS: 36415; 80053; 80061; 81001; 83036; 84443; 85025; 87086

== ENCOUNTER 2022-07-19 07:31 | Outpatient (REF) | payer MEDICARE, OTHER, SELFPAY ==
--- NOTE | ~2022-07-19 | XR_ITS ---
EXAMINATION: XR ABDOMEN KUB CLINICAL INDICATION: Calculus of kidney COMPARISON: Renal ultrasound November 2014 TECHNIQUE: AP view of the abdomen. FINDINGS: The bowel gas pattern is normal with no evidence of ileus or obstruction. No unusual soft tissue calcifications are noted. Degenerative scoliosis of the lumbar sacral spine with a leftward curve partially visualized right total hip arthroplasty XR/XR KUB IMPRESSION: No radiographic evidence of urinary tract calcification
== END 2022-07-19 07:32 | disposition home or self-care (01) ==
LOC: HO.XRAY 07:31
PROVIDERS: PCP Internal Medicine; Visit Provider Physician Assistant Surgical
DX: N20.0 Calculus of kidney (principal)
CPT/HCPCS: 74018

== ENCOUNTER 2022-07-21 07:38 | Outpatient (REF) | payer MEDICARE, OTHER, SELFPAY ==
[2022-07-21 12:42] LABS: Creatinine, mg/dL 52.15; Phosphorus mg/dL 51.1 mg/dL
[2022-07-21 12:45] LABS: Creatinine, mg/dL 52.32; Uric Acid, mg/dL 40.8 mg/dL
[2022-07-21 13:24] LABS: Creatinine, 24Hr Urine 0.8 G/Day (1.0-2.0); Phosphorus, 24 Hr Urine 0.8 G/Day (0.4-1.3); Sodium 24 Hr Urine 78.4 mmol/Day (40-220); Total Volume 24 Hour Urine 1600 mL
[2022-07-21 13:25] LABS: Uric Acid, 24 Hr Urine 652.8 mg/Day (250-750)
[2022-07-24 16:21] LABS: Calcium, 24 Hr Urine 317 mg/24 h; Calcium/Creatinine Ratio 374 mg/g creat (30-275); Creatinine 24Hr Urine 0.85 g/24 h (0.50-2.15)
[2022-07-31 08:47] LABS: 24hr Urine Total Volume 1600 mL; Citric Acid, 24hr Urine 608 mg/24 h (100-1300); Citric Acid/Creat Ratio 24U 699 mg/g creat (180-1070); Creatinine, 24U 0.85 g/24 h (0.50-2.15); Oxalic Acid 24 Urine 20.8 mg/24 h (3.6-38.0)
== END 2022-07-21 07:39 | disposition home or self-care (01) ==
LOC: HO.10HDLNP 07:38
PROVIDERS: Visit Provider Physician Assistant Surgical
DX: N20.0 Calculus of kidney (principal)
CPT/HCPCS: 82340; 82507; 83945; 84105; 84300; 84560

== ENCOUNTER → 2022-08-03 09:28 | Outpatient (BNVA) | payer MEDICARE, OTHER, SELFPAY | PROVIDERS: PCP Internal Medicine; Referring Provider Internal Medicine; Visit Provider Internal Medicine Cardiovascular Disease | DX: I35.0 Nonrheumatic aortic (valve) stenosis (principal); I10 Essential (primary) hypertension | CPT/HCPCS: 99212 ==

== ENCOUNTER 2022-12-23 12:57 | Emergency (ER) | payer MEDICARE, OTHER, SELFPAY ==
[2022-12-23 12:59] VITALS: BP 140/85; PULSE 98; RESP 20; TEMP 37.1; O2SAT 96; BMI 25.0
--- NOTE | 2022-12-23 13:01 | ED.ALLEREA ---
HPI - Allergic Reaction General Chief complaint: Allergic Reaction Stated complaint: allergic reaction Time Seen by Provider: 12/23/22 13:06 Related Data Home Medications Medication Instructions Recorded Confirmed atorvastatin 10 mg tablet 10 mg PO DAILY 12/31/20 08/03/22 estradiol 0.01% (0.1 mg/gram) vaginal 12/31/20 08/03/22 vaginal cream losartan 50 mg tablet 50 mg PO DAILY 12/31/20 08/03/22 pantoprazole 20 mg tablet,delayed 20 mg PO DAILY 12/31/20 08/03/22 release aspirin 81 mg tablet,delayed 81 mg PO DAILY 02/01/21 08/03/22 release (Adult Low Dose Aspirin) calcium carbonate 500 mg calcium 500 mg PO DAILY 08/03/22 08/03/22 (1,250 mg) chewable tablet (Calcium 500) multivitamin (Daily Multi-Vitamin 1 tab PO DAILY 08/03/22 08/03/22 tablet) Previous Rx's Medication Instructions Recorded betamethasone dipropionate 0.05 % 1 appl topical BID #45 grams 12/31/20 topical cream Allergies Allergy/AdvReac Type Severity Reaction Status Date / Time lisinopril AdvReac Intermediate Cough Verified 01/26/22 10:45 bees Allergy Intermediate Rash Uncoded 01/26/22 10:45 PMFSH Past Medical History Medical History Aortic stenosis HTN (hypertension) Surgical History H/O tubal ligation History of hip surgery Family History Family History Father CVD (cardiovascular disease) Mother Diabetes Social History Social History Alcohol intake: current Alcohol intake frequency: 0-2 drinks per day Alcohol type: wine and hard liquor Patient Tobacco Use Status: Never used Tobacco Smoked in Last 30 Days: No Advance Directives: Yes Advance Directives on File: No Physical Exam ED Vital Signs: BMI result Body Mass Index 25.0 Course Course Course Narrative: This is a rapid medical exam. deferred additional HPI, ROS, PE to primary provider. 77 yo female with history of HTN here with rash to body, tongue swelling noted this morning. Took 3 tabs of benadryl [employer]. Unknown source, VSS Medications Administered Discontinued Medications Generic Name Dose Route Start Last Admin Trade Name Rikyq PRN Reason Stop Dose Admin Dexamethasone Sodium Phosphate 10 mg 12/23/22 13:20 12/23/22 13:40 Dexamethasone Sod Phosphate 10 Mg/Ml Vial IVPUSH 12/23/22 13:21 10 mg ONCE ONE Administration Diphenhydramine HCl 12.5 mg 12/23/22 13:20 12/23/22 13:39 Diphenhydramine Hcl 50 Mg/Ml Vial IVPUSH 12/23/22 13:21 12.5 mg ONCE ONE Administration Medical Decision Making Lab Data 12/23/22 13:33 12/23/22 13:51 Labs: Lab Results 12/23/22 12/23/22 Range/Units 13:33 13:51 WBC 8.0 (4.8-10.8) X10*3/uL RBC 5.70 H (4.20-5.50) X10*6/uL Hgb 14.8 (12.0-16.0) g/dl Hct 46.4 (37.0-47.0) % MCV 81.4 (80.0-98.0) fL MCH 26.0 L (27.0-33.0) pg MCHC 31.9 (31.0-35.0) g/dl RDW 14.7 (11.0-16.0) % Plt Count 278 (160-400) X10*3/uL MPV 9.6 (9.4-12.3) fL Immature Gran % (Auto) 0.9 H (0.0-0.4) % Neut % (Auto) 65.0 (45-73) % Lymph % (Auto) 23.6 (20-40) % [place] % (Auto) 6.5 (2-11) % Eos % (Auto) 3.4 (0-4) % Baso % (Auto) 0.6 (0-2) % Lymph # (Auto) 1.9 (1.2-4.9) X10*3/uL [place] # (Auto) 0.5 (0.1-1.2) X10*3/uL Eos # (Auto) 0.3 (0.0-0.4) X10*3/uL Baso # (Auto) 0.1 (0.0-0.2) X10*3/uL Abs Immat Gran (auto) 0.07 H (0.00-0.03) X10*3/uL Absolute Neuts (auto) 5.2 (2.0-8.3) x10*3/uL Absolute Nucleated RBC 0.000 (0.0-0.012) X10*3/uL Nucleated RBC % (auto) 0.0 (0.0-0.2) /100WBC Sodium 139 (135-145) mmol/L Potassium 4.4 (3.3-5.1) mmol/L Chloride 104 (96-108) mmol/L Carbon Dioxide 23 (22-29) mmol/L Anion Gap 16 (12-20) BUN 20 H (9-16) mg/dL Creatinine 0.79 (0.5-1.4) mg/dL Estim Creat Clear Calc 46.2 Estimated GFR > 60 Random Glucose 157 H (60-115) mg/dL Calcium 9.7 (8.4-10.2) mg/dL Total Bilirubin 0.4 (0.0-1.0) mg/dL AST 23 (5-31) U/L ALT 15 (0-31) U/L Alkaline Phosphatase 83 (39-117) U/L Total Protein 6.6 (6.5-8.0) g/dL Albumin 4.2 (3.5-5.0) g/dL Discharge Plan Discharge Clinical Impression: Allergic reaction Patient Disposition: Home, Self-Care Instructions: General Allergic Reaction (ED) Additional Instructions: YOU COULD TAKE BENADRYL EVERY 6 HOUR NEEDED RETURN IF YOU WORSE ANY CONCERN Prescriptions: No Action estradiol 0.01 % (0.1 mg/gram) cream vaginal pantoprazole 20 mg tablet,delayed release (DR/EC) 20 mg PO DAILY atorvastatin 10 mg tablet 10 mg PO DAILY losartan 50 mg tablet 50 mg PO DAILY betamethasone dipropionate 0.05 % cream 1 appl topical BID Qty: 45 0RF Rx Instructions: until resolved aspirin [Adult Low Dose Aspirin] 81 mg tablet,delayed release (DR/EC) 81 mg PO DAILY calcium carbonate [Calcium 500] 500 mg calcium (1,250 mg) tablet,chewable 500 mg PO DAILY multivitamin [Daily Multi-Vitamin] Tablet 1 tab PO DAILY Referrals: Javon Baxter MD [Primary Care Provider] - 12/26/22 Interventions: ED Discharge Assessment Last Done: 12/23/22 15:25 Discharge Date/Time: 12/23/22 15:26
[2022-12-23 13:09] VITALS: BP 153/86; PULSE 90; RESP 20; O2SAT 96
--- NOTE | 2022-12-23 13:34 | ED_ITS ---
HPI - Allergic Reaction General Chief complaint: Allergic Reaction Stated complaint: allergic reaction Time Seen by Provider: 12/23/22 13:06 Source: patient Limitations: no limitations History of Present Illness HPI narrative: This is a 77 years old female presented to the emergency department complaining of an allergic reaction. She states that she had lunch at 11:30 and developed redness in the face the itching in the arm denies any shortness of breath any problems speaking MD complaint: allergic reaction Onset (ago): hour(s) (2 h) Exposure: food Symptoms: rash and itching Severity: moderate Treatment prior to arrival: none Related Data Home Medications Medication Instructions Recorded Confirmed atorvastatin 10 mg tablet 10 mg PO DAILY 12/31/20 08/03/22 estradiol 0.01% (0.1 mg/gram) vaginal 12/31/20 08/03/22 vaginal cream losartan 50 mg tablet 50 mg PO DAILY 12/31/20 08/03/22 pantoprazole 20 mg tablet,delayed 20 mg PO DAILY 12/31/20 08/03/22 release aspirin 81 mg tablet,delayed 81 mg PO DAILY 02/01/21 08/03/22 release (Adult Low Dose Aspirin) calcium carbonate 500 mg calcium 500 mg PO DAILY 08/03/22 08/03/22 (1,250 mg) chewable tablet (Calcium 500) multivitamin (Daily Multi-Vitamin 1 tab PO DAILY 08/03/22 08/03/22 tablet) Previous Rx's Medication Instructions Recorded betamethasone dipropionate 0.05 % 1 appl topical BID #45 grams 12/31/20 topical cream Allergies Allergy/AdvReac Type Severity Reaction Status Date / Time lisinopril AdvReac Intermediate Cough Verified 01/26/22 10:45 bees Allergy Intermediate Rash Uncoded 01/26/22 10:45 Review of Systems Constitutional: Constitutional: Reports no additional constitutional complaints Cardiovascular: Cardiovascular: Reports no additional cardiovascular complaints Respiratory: Respiratory: Reports no additional respiratory complaints Neurologic: Reports system reviewed and no additional complaints, except as documented [facility] Past Medical History [facility] Narrative: /HTN Medical History Aortic stenosis HTN (hypertension) Surgical History H/O tubal ligation History of hip surgery Family History Family History Father CVD (cardiovascular disease) Mother Diabetes Social History Social History Alcohol intake: current Alcohol intake frequency: 0-2 drinks per day Alcohol type: wine and hard liquor Patient Tobacco Use Status: Never used Tobacco Smoked in Last 30 Days: No Advance Directives: Yes Advance Directives on File: No Physical Exam ED Vital Signs: Vital Signs - 24 hr 12/23/22 12:59 12/23/22 13:09 12/23/22 15:18 Temperature 98.8 F 98 F Pulse Rate 98 90 76 Respiratory Rate 20 20 14 Blood Pressure 140/85 H 153/86 H 138/72 Pulse Oximetry 96 96 96 Oxygen Delivery Method Room Air Room Air Room Air BMI result Body Mass Index 25.0 Const General: cooperative, comfortable, no acute distress and well developed Nutritional Appearance: average body habitus Orientation/consciousness: patient oriented x3 HENMT Head: Yes normal to inspection Face and sinus: Yes other (Rash present in the face macular) Throat: Yes posterior oropharynx normal Neck Neck: Yes full ROM Chest Chest palpation & inspection: normal inspection of the chest Resp Effort & Inspection: normal respiratory effort Auscultation: clear to auscultation bilaterally Cardio Jugular venous distension: no JVD Rate: regular rate Rhythm: regular rhythm GI Inspection: Yes normal to inspection Palpation (GI): Soft to palpation, not firm, nontender and no guarding Skin General skin exam: other (Macular rash present in the face and upper arms) Rashes: rashes noted Neuro General: patient oriented x3 Course Reevaluation(s) Reevaluation #1: RE-EXAMINED SHE FEELS MUCH BETTER ANTICIPATE DISCHARGE Time: 15:19 Medications Administered Discontinued Medications Generic Name Dose Route Start Last Admin Trade Name Freq PRN Reason Stop Dose Admin Dexamethasone Sodium Phosphate 10 mg 12/23/22 13:20 12/23/22 13:40 Dexamethasone Sod Phosphate 10 Mg/Ml Vial IVPUSH 12/23/22 13:21 10 mg ONCE ONE Administration Diphenhydramine HCl 12.5 mg 12/23/22 13:20 12/23/22 13:39 Diphenhydramine Hcl 50 Mg/Ml Vial IVPUSH 12/23/22 13:21 12.5 mg ONCE ONE Administration Medical Decision Making Medical Decision Making [facility] Narrative: Patient presented with symptoms of allergic reaction we gave IV steroid IV Benadryl and reassessed 3 pm MUCH BETTER ,RASH GONE Differential Diagnosis Differential Diagnoses: The differential diagnosis associated with the presentation includes Allergic reaction, urticaria, angioedema Admission/Observation Consideration of admission/observation: Escalation of care including admission /observation considered Lab Data [facility] Lab Attestation statement: I reviewed the patient's lab results. 12/23/22 13:33 12/23/22 13:51 Labs: Lab Results 12/23/22 12/23/22 Range/Units 13:33 13:51 WBC 8.0 (4.8-10.8) X10*3/uL RBC 5.70 H (4.20-5.50) X10*6/uL Hgb 14.8 (12.0-16.0) g/dl Hct 46.4 (37.0-47.0) % MCV 81.4 (80.0-98.0) fL MCH 26.0 L (27.0-33.0) pg MCHC 31.9 (31.0-35.0) g/dl RDW 14.7 (11.0-16.0) % Plt Count 278 (160-400) X10*3/uL MPV 9.6 (9.4-12.3) fL Immature Gran % (Auto) 0.9 H (0.0-0.4) % Neut % (Auto) 65.0 (45-73) % Lymph % (Auto) 23.6 (20-40) % [place] % (Auto) 6.5 (2-11) % Eos % (Auto) 3.4 (0-4) % Baso % (Auto) 0.6 (0-2) % Lymph # (Auto) 1.9 (1.2-4.9) X10*3/uL [place] # (Auto) 0.5 (0.1-1.2) X10*3/uL Eos # (Auto) 0.3 (0.0-0.4) X10*3/uL Baso # (Auto) 0.1 (0.0-0.2) X10*3/uL Abs Immat Gran (auto) 0.07 H (0.00-0.03) X10*3/uL Absolute Neuts (auto) 5.2 (2.0-8.3) x10*3/uL Absolute Nucleated RBC 0.000 (0.0-0.012) X10*3/uL Nucleated RBC % (auto) 0.0 (0.0-0.2) /100WBC Sodium 139 (135-145) mmol/L Potassium 4.4 (3.3-5.1) mmol/L Chloride 104 (96-108) mmol/L Carbon Dioxide 23 (22-29) mmol/L Anion Gap 16 (12-20) BUN 20 H (9-16) mg/dL Creatinine 0.79 (0.5-1.4) mg/dL Estim Creat Clear Calc 46.2 Estimated GFR > 60 Random Glucose 157 H (60-115) mg/dL Calcium 9.7 (8.4-10.2) mg/dL Total Bilirubin 0.4 (0.0-1.0) mg/dL AST 23 (5-31) U/L ALT 15 (0-31) U/L Alkaline Phosphatase 83 (39-117) U/L Total Protein 6.6 (6.5-8.0) g/dL Albumin 4.2 (3.5-5.0) g/dL Independent Historian Clinical information obtained from an independent historian. History obtained from or confirmed by: Other (SON) Discharge Plan Discharge Clinical Impression: Allergic reaction Patient Disposition: Home, Self-Care Instructions: General Allergic Reaction (ED) Additional Instructions: YOU COULD TAKE BENADRYL EVERY 6 HOUR NEEDED RETURN IF YOU WORSE ANY CONCERN Prescriptions: No Action estradiol 0.01 % (0.1 mg/gram) cream vaginal pantoprazole 20 mg tablet,delayed release (DR/EC) 20 mg PO DAILY atorvastatin 10 mg tablet 10 mg PO DAILY losartan 50 mg tablet 50 mg PO DAILY betamethasone dipropionate 0.05 % cream 1 appl topical BID Qty: 45 0RF Rx Instructions: until resolved aspirin [Adult Low Dose Aspirin] 81 mg tablet,delayed release (DR/EC) 81 mg PO DAILY calcium carbonate [Calcium 500] 500 mg calcium (1,250 mg) tablet,chewable 500 mg PO DAILY multivitamin [Daily Multi-Vitamin] Tablet 1 tab PO DAILY Referrals: Javon Baxter MD [Primary Care Provider] - 12/26/22 Interventions: ED Discharge Assessment Last Done: 12/23/22 15:25 Discharge Date/Time: 12/23/22 15:26
[2022-12-23 13:36] LABS: MANUAL DIFF FLAG NO
[2022-12-23 13:38] LABS: Basophils Absolute Auto 0.1 X10*3/uL (0.0-0.2); Basophils Percent Auto 0.6 % (0-2); Eosinophils Absolute Auto 0.3 X10*3/uL (0.0-0.4); Eosinophils Percent Auto 3.4 % (0-4); Hematocrit 46.4 % (37.0-47.0); Hemoglobin 14.8 g/dl (12.0-16.0); Imm Gran Abs Auto 0.07 X10*3/uL (0.00-0.03); Imm Gran Pct Auto 0.9 % (0.0-0.4); Lymphocytes Absolute Auto 1.9 X10*3/uL (1.2-4.9); Lymphocytes Percent Auto 23.6 % (20-40); Mean Corpuscular HGB Conc 31.9 g/dl (31.0-35.0); Mean Corpuscular Volume 81.4 fL (80.0-98.0); Mean Platelet Volume 9.6 fL (9.4-12.3); Monocytes Absolute Auto 0.5 X10*3/uL (0.1-1.2); Monocytes Percent Auto 6.5 % (2-11); Neutrophils Absolute Auto 5.2 x10*3/uL (2.0-8.3); Platelet Count 278 X10*3/uL (160-400); Red Cell Distribution Width 14.7 % (11.0-16.0)
[2022-12-23] MEDS: diphenhydrAMINE HCL 50 MG/ML VIAL 12.5 MG IVPUSH (13:39)
[2022-12-23] MEDS: dexAMETHasone sod phosphate 10 MG/ML VIAL IVPUSH (13:40)
[2022-12-23 14:23] LABS: Alanine Aminotransferase 15 U/L (0-31); Albumin Level 4.2 g/dL (3.5-5.0); Alkaline Phosphatase 83 U/L (39-117); Anion Gap 16 (12-20); Aspartate Amino Transferase 23 U/L (5-31); Bilirubin Total 0.4 mg/dL (0.0-1.0); Blood Urea Nitrogen 20 mg/dL (9-16); Calcium 9.7 mg/dL (8.4-10.2); Carbon Dioxide 23 mmol/L (22-29); Chloride 104 mmol/L (96-108); Creatinine Clr Calc Pharmacy 46.2; Estimated Glomerular Filt Rate > 60; Glucose Random 157 mg/dL (60-115); Potassium 4.4 mmol/L (3.3-5.1); Sodium 139 mmol/L (135-145); Total Protein 6.6 g/dL (6.5-8.0)
--- NOTE | 2022-12-23 15:17 | PC.NURSE ---
PT STATES FEELING MUCH BETTER, SWELLING AND RASH HAS IMPROVED ON FACE AND HANDS. PROVIDER AWARE PLAN FOR DC TO HOME
[2022-12-23 15:18] VITALS: BP 138/72; PULSE 76; RESP 14; TEMP 36.6; O2SAT 96
== END 2022-12-23 15:26 | disposition home or self-care (01) ==
PROVIDERS: Emergency Provider Emergency Medicine; PCP Internal Medicine
DX: T78.1XXA Other adverse food reactions, not elsewhere classified, initial encounter (principal); R21 Rash and other nonspecific skin eruption; X58.XXXA Exposure to other specified factors, initial encounter; I10 Essential (primary) hypertension; Z79.899 Other long term (current) drug therapy
CPT/HCPCS: 36415; 80053; 85025; 96374; 96375; 99284; J1100; J1200

== ENCOUNTER → 2023-01-03 13:44 | Outpatient (REF) | payer MEDICARE, OTHER, SELFPAY ==
--- NOTE | 2023-01-03 13:47 | CA_ITS ---
Transthoracic Echocardiogram Patient (Last, First, Middle): Richa Smith, Gender: Female Date of : 1945 Age: 77 Procedure Date: 01/03/2023 Procedure Type: Transthoracic Echocardiogram Location: OP Height: 147.32 cm Weight: 56.25 kg BSA: 1.49 m2 Heart Rate: bpm BP: 118 / 60 mmHg Cutter Woodwind Reeds: Referring MD: Antoine Resendez MD Entry Specialists: Antoine Resendez MD Symptoms: I35.0 - Nonrheumatic aortic (valve) stenosis Study Quality: Good ECG Rhythm: Sinus Conclusions: - 1. Normal LV systolic function with impaired relaxation filling pattern 2. Moderate to severe aortic stenosis 3. Normal RV systolic pressure 4. No gross pericardial effusion Findings Left Ventricle Normal left ventricular size, thickness, and systolic function. The visually estimated ejection fraction is between 60-65%. Spectral Doppler is indicative of an impaired relaxation filling pattern. E/E prime ratio is between 8 and 15 consistent with indeterminate filling pressures. Right Ventricle Normal right ventricular cavity size and systolic function. Atria The left atrium is normal in size. There is no evidence of interatrial shunt. The right atrium is normal in size. Aortic Valve There is moderate calcification of the aortic valve. There is moderate thickening of the aortic valve. There is moderate to severe aortic valve stenosis. The mean gradient is 25 mmHg. The aortic valve area is 0.87 cm2. There is no aortic valve regurgitation. calculated dimensionless index is 0.27 which is within moderate range Mitral Valve There is mild anterior and posterior mitral leaflet thickening. There is moderate mitral annular calcification. There is trace mitral valve regurgitation. There is no mitral valve stenosis. Pulmonic Valve The pulmonic valve was not well visualized. Tricuspid Valve Likely normal tricuspid valve structure and function. There is trace tricuspid valve regurgitation. The right ventricular systolic pressure is normal. The right ventricular systolic pressure is 28 mmHg. Normal right atrial pressure. There is no evidence of pulmonary hypertension. Great Vessels All visible segments of the aorta are normal in size. The pulmonary artery was not well visualized. Venous The inferior vena cava is normal in size and collapses greater than 50% with inspiration. Pericardium/Pleural There is no evidence of pericardial effusion. Prior Study Comparison No significant change compared to prior study dated: 01/24/2022. Measurements 2D Linear Measurements IVSd: 1.02 0.6-0.9/0.6-1.0 cm LVIDd: 3.22 3.9-5.3/4.2-5.9 cm LVIDd Index: 2.16 2.4-3.2/2.2-3.1 cm/m2 LVIDs: 2.19 2.0-3.6 cm LVPWd: 1.09 0.7-1.1 cm Ao Root: 2.80 2.1-3.5 cm LA Diam: 3.30 2.7-3.8/3.0-4.0 cm LAIDs Index: 2.21 1.5-2.3 cm/m2 LV Mass: 122.75 67-162/88-224 g LV Mass Index: 82.39 43-95/49-115 g/m2 LVOT Diam: 2.00 3.0+(-)1.3 cm Mitral Valve MV Pk E: 0.59 MV PK A: 1.12 MV Decel Time: 221.00 E/A: 0.50 E'Lateral: 5.87 E'Medial: 3.81 E/E' Med: 15.40 E/E' Lat: 10.00 PHT: 65.00 MVA PHT: 3.38 Decel Ida: 2.65 Aortic Valve AoV Pk Yonas: 3.32 AoV Mn Yonas: 2.33 AoV VTI: 0.74 AoV Pk Grad: 44.00 Aov Mn Grad: 25.00 GENEVA Cont.VTI: 0.87 LVOT LVOT Pk Yonas: 0.99 LVOT Mn Yonas: 0.71 LVOT VTI: 0.21 LVOT Pk Grad: 4.00 LVOT Mn Grad: 2.00 LVOT Diam: 2.00 LVOT Area: 3.14 Diastolic Function MV Pk E: 0.59 MV Pk A: 1.12 E/A: 0.50 E'Medial: 3.81 E/E' Med: 15.40 E' Laterial: 5.87 E/E' Lat: 10.00 Right Ventricle TAPSE (mm): 18.00 TVS' Yonas: 12.00 Tricuspid Valve TR Pk Yonas: 2.49 TR Pk Grad: 25.00 RA Press: 3.00 RVSP: 28.00 Great Vessels Aorta Ao Root-2D: 2.80 2.0-3.7 cm Ao Asc: 3.30 2.1-3.4 cm Pulmonary Valve PV Pk Yonas: 0.91 Peak PV Grad: 3.00 Updated in Other Vendor System with Status of Final Antoine Resendez MD electronically signed on 01/04/2023 5:22:52 PM with status of Final
== END ==
LOC: HO.CARD 13:44
PROVIDERS: PCP Internal Medicine; Visit Provider Internal Medicine Cardiovascular Disease
DX: I35.0 Nonrheumatic aortic (valve) stenosis (principal)
CPT/HCPCS: 93306

== ENCOUNTER 2023-01-04 10:46 | Outpatient (REF) | payer MEDICARE, OTHER, SELFPAY ==
--- NOTE | ~2023-01-04 | MM_ITS ---
EXAMINATION: MM DIAGNOSTIC DIGITAL BREAST TOMOSYNTHESIS, BILATERAL CLINICAL INFORMATION: Due for yearly. Also follow-up probable benign right parenchymal asymmetric density. The lifetime risk of breast cancer based on the Tyrer-Cuzick Model is 2%. COMPARISON: Mammography: 01/02/2022, 06/29/2021, 12/13/2020, 11/11/2020 (BI-RADS 0) 07/04/2018, 11/24/2015, 02/10/2014 TECHNIQUE: Digital breast tomosynthesis is performed in both the craniocaudal and mediolateral oblique views along with computer-aided detection (CAD). Synthesized 2D images are generated from the tomosynthesis. FINDINGS: There are scattered areas of fibroglandular density (ACR BI-RADS breast composition Category b). There are no significant masses, abnormal calcifications, or other abnormalities. Parenchymal pattern is similar to prior studies. There is no developing density or architectural abnormality. The axilla and skin contours are unremarkable. No significant changes. Results are provided to the patient at time of visit by the technologist. MM/MM tomosynthesis diagnostic BI IMPRESSION: -No mammographic evidence of malignancy. -No changes from prior studies. No developing density. ASSESSMENT: BI-RADS 2: Benign RECOMMENDATION: Routine annual mammography screening. This patient's information was entered into a reminder system with a target due date for their next mammogram.
== END 2023-01-04 10:47 | disposition home or self-care (01) ==
LOC: HO.MAMMO 10:46
PROVIDERS: Visit Provider Internal Medicine
DX: R92.2 Inconclusive mammogram (principal)
CPT/HCPCS: 77062; 77066

== ENCOUNTER → 2023-02-01 10:06 | Outpatient (BNVA) | payer MEDICARE, OTHER, SELFPAY | PROVIDERS: PCP Internal Medicine; Referring Provider Internal Medicine; Visit Provider Internal Medicine Cardiovascular Disease | DX: Z01.810 Encounter for preprocedural cardiovascular examination (principal); I35.0 Nonrheumatic aortic (valve) stenosis; I10 Essential (primary) hypertension | CPT/HCPCS: 93005; 99212 ==

== ENCOUNTER 2023-02-16 07:55 | Outpatient (REF) | payer MEDICARE, OTHER, SELFPAY ==
[2023-02-16 10:36] LABS: MANUAL DIFF FLAG NO
[2023-02-16 10:48] LABS: Appearance Urine Clear; Color Urine Yellow; Glucose Urine UA Negative (Negative); Leukocyte Esterase Urine Negative (Negative); Nitrite Urine Negative (Negative); PH 5.5 (5.0-9.0); Specific Gravity - Urine 1.015 (1.005-1.025); Urine Blood Negative (Negative); Urine Ketones Negative (Negative); Urine Protein Negative (Neg-Trace)
[2023-02-16 10:55] LABS: Basophils Absolute Auto 0.1 X10*3/uL (0.0-0.2); Basophils Percent Auto 1.2 % (0-2); Eosinophils Absolute Auto 0.3 X10*3/uL (0.0-0.4); Eosinophils Percent Auto 5.8 % (0-4); Hematocrit 42.2 % (37.0-47.0); Hemoglobin 13.5 g/dl (12.0-16.0); Imm Gran Abs Auto 0.03 X10*3/uL (0.00-0.03); Imm Gran Pct Auto 0.5 % (0.0-0.4); Lymphocytes Absolute Auto 1.5 X10*3/uL (1.2-4.9); Lymphocytes Percent Auto 25.6 % (20-40); Mean Corpuscular Hemoglobin 26.6 pg (27.0-33.0); Mean Corpuscular Volume 83.2 fL (80.0-98.0); Mean Platelet Volume 10.8 fL (9.4-12.3); Monocytes Absolute Auto 0.6 X10*3/uL (0.1-1.2); Neutrophils Absolute Auto 3.3 x10*3/uL (2.0-8.3); Neutrophils Percent Auto 55.9 % (45-73); Platelet Count 283 X10*3/uL (160-400); Red Blood Count 5.07 X10*6/uL (4.20-5.50); Red Cell Distribution Width 15.3 % (11.0-16.0); White Blood Count 5.8 X10*3/uL (4.8-10.8)
[2023-02-16 11:49] LABS: Alanine Aminotransferase 17 U/L (0-31); Albumin Level 4.4 g/dL (3.5-5.0); Alkaline Phosphatase 73 U/L (39-117); Anion Gap 13 (12-20); Aspartate Amino Transferase 26 U/L (5-31); Bilirubin Total 0.7 mg/dL (0.0-1.0); Blood Urea Nitrogen 20 mg/dL (9-16); Calcium 9.5 mg/dL (8.4-10.2); Carbon Dioxide 28 mmol/L (22-29); Chloride 105 mmol/L (96-108); Cholesterol 181 mg/dL; Estimated Glomerular Filt Rate > 60; Glucose Fasting 95 mg/dL (60-99); HDL Cholesterol 60 mg/dL; LDL Cholesterol Calculated 91 mg/dl; Potassium 4.4 mmol/L (3.3-5.1); Sodium 142 mmol/L (135-145); Total Protein 6.6 g/dL (6.5-8.0); Triglycerides 153 mg/dL
[2023-02-16 12:11] LABS: Thyroid Stimulating Hormone 1.28 uIU/mL (0.32-4.0); Vitamin D 25-OH Total 52.2 ng/mL (>30)
== END 2023-02-16 07:56 | disposition home or self-care (01) ==
LOC: HO.10HDL 07:55
PROVIDERS: Visit Provider Internal Medicine
DX: K21.9 Gastro-esophageal reflux disease without esophagitis (principal); I10 Essential (primary) hypertension; E78.2 Mixed hyperlipidemia; E55.9 Vitamin D deficiency, unspecified
CPT/HCPCS: 36415; 80053; 80061; 81003; 82306; 84443; 85025; 99211

== ENCOUNTER → 2023-04-26 11:24 | Outpatient (BNVA) | payer MEDICARE, OTHER, SELFPAY | PROVIDERS: PCP Internal Medicine; Visit Provider Internal Medicine Cardiovascular Disease | DX: I35.0 Nonrheumatic aortic (valve) stenosis (principal); I10 Essential (primary) hypertension | CPT/HCPCS: 99212 ==

== ENCOUNTER → 2023-04-27 09:48 | Outpatient (BNVA) | payer MEDICARE, OTHER, SELFPAY | PROVIDERS: PCP Internal Medicine; Visit Provider Internal Medicine Gastroenterology | DX: K30 Functional dyspepsia (principal) | CPT/HCPCS: 99202 ==

== ENCOUNTER → 2023-08-01 10:50 | Outpatient (REF) | payer MEDICARE, OTHER, SELFPAY ==
--- NOTE | 2023-08-01 10:52 | CA_ITS ---
Transthoracic Echocardiogram Patient (Last, First, Middle): Richa Smith, Gender: Female Date of : 1945 Age: 78 Procedure Date: 08/01/2023 Procedure Type: Transthoracic Echocardiogram Location: OP Height: 142.24 cm Weight: 54.43 kg BSA: 1.43 m2 Heart Rate: 75 bpm BP: 126 / 70 mmHg Stations Superintendent: JIMMIE/WADE Referring MD: Antoine Resendez MD Processor Solid Propellant: Antoine Resendez MD Symptoms: I35.0 - Nonrheumatic aortic (valve) stenosis Study Quality: Fair but adequate ECG Rhythm: Sinus Conclusions: - 1. Normal LV ejection fraction of 60-65% with impaired relaxation filling pattern 2. Moderate to severe aortic stenosis 3. Normal RV systolic pressure 4. No gross pericardial effusion Findings Left Ventricle Normal left ventricular size, thickness, and systolic function. The visually estimated ejection fraction is between 60-65%. Spectral Doppler is indicative of an impaired relaxation filling pattern. There is mild septal asymmetric hypertrophy. Right Ventricle Normal right ventricular cavity size and systolic function. Atria Both atria are normal in size. Interatrial shunt cannot be excluded. Aortic Valve There is moderate calcification of the aortic valve. There is moderate thickening of the aortic valve. There is moderate to severe aortic valve stenosis. The mean gradient is 25 mmHg. The aortic valve area is 0.96 cm2. There is no aortic valve regurgitation. dimensionless index is 0.26 Mitral Valve The mitral valve was not well visualized. There is mild mitral annular calcification. There is no mitral valve regurgitation. There is no mitral valve stenosis. Pulmonic Valve The pulmonic valve was not well visualized. Tricuspid Valve Likely normal tricuspid valve structure and function. There is trace tricuspid valve regurgitation. The right ventricular systolic pressure is normal. The right ventricular systolic pressure is 27 mmHg. Normal right atrial pressure. There is no evidence of pulmonary hypertension. Great Vessels All visible segments of the aorta are normal in size. The pulmonary artery was not well visualized. Venous The inferior vena cava is normal in size and collapses greater than 50% with inspiration. Pericardium/Pleural There is no evidence of pericardial effusion. Prior Study Comparison No significant change compared to prior study dated: 01/03/2023. Measurements 2D Linear Measurements IVSd: 0.94 0.6-0.9/0.6-1.0 cm LVIDd: 3.48 3.9-5.3/4.2-5.9 cm LVIDd Index: 2.43 2.4-3.2/2.2-3.1 cm/m2 LVIDs: 2.26 2.0-3.6 cm LVPWd: 0.60 0.7-1.1 cm LA Diam: 3.50 2.7-3.8/3.0-4.0 cm LAIDs Index: 2.45 1.5-2.3 cm/m2 LV Mass: 87.42 67-162/88-224 g LV Mass Index: 61.13 43-95/49-115 g/m2 LVOT Diam: 2.10 3.0+(-)1.3 cm 2D Systolic Function EF Teich: 65.00 >55% Mitral Valve MV Pk E: 0.62 MV PK A: 0.86 MV Decel Time: 328.00 E/A: 0.70 E'Lateral: 3.54 E'Medial: 3.59 E/E' Med: 17.30 E/E' Lat: 17.50 PHT: 96.00 MVA PHT: 2.29 Decel Rice: 1.89 Aortic Valve AoV Pk Yonas: 3.31 AoV Mn Yonas: 2.34 AoV VTI: 0.68 AoV Pk Grad: 44.00 Aov Mn Grad: 25.00 GENEVA Cont.VTI: 0.96 LVOT LVOT Pk Yonas: 0.93 LVOT Mn Yonas: 0.70 LVOT VTI: 0.19 LVOT Pk Grad: 3.00 LVOT Mn Grad: 2.00 LVOT Diam: 2.10 LVOT Area: 3.46 Diastolic Function MV Pk E: 0.62 MV Pk A: 0.86 E/A: 0.70 E'Medial: 3.59 E/E' Med: 17.30 E' Laterial: 3.54 E/E' Lat: 17.50 Right Ventricle TAPSE (mm): 25.30 TVS' Yonas: 11.20 Tricuspid Valve TR Pk Yonas: 2.44 TR Pk Grad: 24.00 RA Press: 3.00 RVSP: 27.00 Great Vessels Aorta Sinus of Valsalva: 3.00 2.0-3.5 cm Ao Asc: 3.40 2.1-3.4 cm Ao Arch: 2.80 Pulmonary Valve PV Pk Yonas: 0.78 Peak PV Grad: 2.00 Updated in Other Vendor System with Status of Final Antoine Resendez MD electronically signed on 08/01/2023 4:03:46 PM with status of Final
== END ==
LOC: HO.CARD 10:50
PROVIDERS: PCP Internal Medicine; Visit Provider Internal Medicine Cardiovascular Disease
DX: I35.0 Nonrheumatic aortic (valve) stenosis (principal)
CPT/HCPCS: 93306

== ENCOUNTER → 2023-08-01 10:52 | Outpatient (BNV) | payer MEDICARE, OTHER, SELFPAY | PROVIDERS: PCP Internal Medicine; Visit Provider Internal Medicine Cardiovascular Disease | DX: I35.0 Nonrheumatic aortic (valve) stenosis (principal) | CPT/HCPCS: 93306 ==

== ENCOUNTER 2023-08-28 12:26 | Outpatient (AMB) | payer MEDICARE, OTHER, SELFPAY ==
[2023-08-28 12:40] VITALS: BP 130/76; PULSE 82; BMI 24.5
--- NOTE | 2023-08-28 12:40 | A.OFFVIS_ITS ---
Intake Vital Signs 08/28/23 12:40 Height 4 ft 11 in Weight 121 lb 4.068 oz BMI 24.5 BP 130/76 Blood Pressure Location Lt brachial Position Sitting Pulse 82 Intake Visit Reasons: 4 month follow up after echo Intake Note: 4 month follow-up after echo feeling off head vertigo 2 weeks ago Allergies lisinopril Adverse Reaction (Intermediate, Verified 04/27/23 09:53) Cough bees Allergy (Intermediate, Uncoded 04/27/23 09:53) Rash Medication List - Last Reconciled 08/28/23 by Antoine Resendez MD aspirin (Adult Low Dose Aspirin) 81 mg PO DAILY atorvastatin 10 mg PO DAILY betamethasone dipropionate 0.05% 1 appl topical BID calcium carbonate (Calcium 500) 500 mg PO DAILY losartan 50 mg PO BID multivitamin (Daily Multi-Vitamin tablet) 1 tab PO DAILY pantoprazole 40 mg PO DAILY HPI HPI Comments History of Present Illness Details Richa comes for follow-up after 4 months. She says she is getting increasing symptoms of fatigue and exercise intolerance than before in the last 4 months. Denies any orthopnea, PND, chest pain, lightheadedness, syncope. She however notices that she is not the same energy level as she was 4 months ago. She still tries to remain active as much as possible. She takes all her medications. [facility] Medical History HTN (hypertension) Aortic stenosis Surgical History Hx of colonoscopy H/O tubal ligation History of hip surgery Family History Father CVD (cardiovascular disease) Mother Diabetes Social History Alcohol intake: current Alcohol intake frequency: 0-2 drinks per day Alcohol type: wine and hard liquor Patient Tobacco Use Status: Never used Tobacco Review of Systems Const Denies chills, Denies fatigue, Denies fever(s), Denies frequent falls, Denies weakness, Denies weight gain and Denies weight loss ENT Denies dizziness Card Denies chest pain, Denies leg edema, Denies lightheadedness, Denies palpitations, Denies dyspnea, Denies dyspnea on exertion, Denies orthopnea and Denies other (loss of consciousness) Resp Denies cough, Denies dyspnea and Denies dyspnea on exertion GI Denies hematochezia and Denies change in stool character Musc Denies abnormal gait, Denies muscle weakness, Denies numbness, Denies radiating pain into limb and Denies tingling Neuro Denies abnormal gait, Denies dizziness, Denies frequent falls, Denies numbness, Denies tingling and Denies weakness Endo Denies fatigue and Denies palpitations Physical Exam Vital Signs: Last Vital Signs Pulse 82 08/28/23 12:40 BP 130/76 08/28/23 12:40 BMI result Body Mass Index 24.5 Const General: cooperative, comfortable, no acute distress, alert, awake, anxious and well groomed Nutritional Appearance: average body habitus Orientation/consciousness: patient oriented x3 Limitations: no limitations Neck Neck: Yes trachea midline, Yes supple and Yes no JVD Resp Effort & Inspection: normal respiratory effort Auscultation: clear to auscultation bilaterally Cardio Jugular venous distension: no JVD Palpation: normal PMI Rate: regular rate Rhythm: regular rhythm Heart sounds: S1 normal heart sound present, S2 normal heart sound present, no click, no gallops and Murmur heart sound present systolic late, decrescendo and crescendo GI Auscultation: normal bowel sounds Skin General skin exam: no rashes or lesions noted Neuro General: patient oriented x3 and no focal motor deficits Extrem General: Yes no clubbing, cyanosis or edema Psych Appearance: grossly normal Affect: Anxious affect present Assessment & Plan Assessment & Plan (1) Aortic stenosis: Code(s): I35.0 - Nonrheumatic aortic (valve) stenosis Plan: Aortic stenosis with mean gradient of 25 mmHg with valve area of 0.96 centimeters sq and clinically appears to be moderately severe aortic stenosis. Although she is having progressive symptoms exertional shortness of breath and fatigue with exercise intolerance. These are concerning symptoms and could be related to underestimated aortic stenosis and/or coronary artery disease. Recommend her to undergo cardiac catheterization to evaluate for hemodynamics of the valve as well as coronary anatomy. Advise the test in near future to assess valve stenosis. Patient was explained the risks, benefits, alternatives 2nd open to procedure. Instructions were provided. She wants to discuss this with her kids as well as do her research. I think this is reasonable at this point time. Should call me back. Will schedule her tentatively in 1 month's time. Continue on medical therapy at this point time. Will follow up in the clinic after cardiac catheterization in 2 months time. Thank you for allowing me to partake in her care Orders: Orders Cardiac Cath EMRE Diagnostic 4 Weeks I35.0 - Nonrheumatic aortic (valve) stenosis Basic Metabolic Panel Today I35.0 - Nonrheumatic aortic (valve) stenosis Prothrombin Time INR Today I35.0 - Nonrheumatic aortic (valve) stenosis Complete Blood Count no Diff Today I35.0 - Nonrheumatic aortic (valve) stenosis Coding Level of Care Code Est Pt Level 4 (61566) Diagnoses Aortic stenosis I35.0
== END 2023-08-28 13:23 | disposition home or self-care (01) ==
PROVIDERS: PCP Internal Medicine; Visit Provider Internal Medicine Cardiovascular Disease
DX: I35.0 Nonrheumatic aortic (valve) stenosis (principal)
CPT/HCPCS: 99214

== ENCOUNTER → 2023-08-28 12:26 | Outpatient (BNVA) | payer MEDICARE, OTHER, SELFPAY | PROVIDERS: PCP Internal Medicine; Visit Provider Internal Medicine Cardiovascular Disease | DX: I35.0 Nonrheumatic aortic (valve) stenosis (principal); I10 Essential (primary) hypertension | CPT/HCPCS: 99212 ==

== ENCOUNTER 2023-09-21 06:41 | Outpatient (REF) | payer MEDICARE, OTHER, SELFPAY ==
[2023-09-21 07:31] LABS: Hematocrit 43.9 % (37.0-47.0); Mean Corpuscular HGB Conc 31.9 g/dl (31.0-35.0); Mean Corpuscular Volume 81.6 fL (80.0-98.0); Platelet Count 279 X10*3/uL (160-400); Red Blood Count 5.38 X10*6/uL (4.20-5.50); Red Cell Distribution Width 14.7 % (11.0-16.0); White Blood Count 6.6 X10*3/uL (4.8-10.8)
[2023-09-21 07:56] LABS: Anion Gap 12 (12-20); Blood Urea Nitrogen 14 mg/dL (9-16); Calcium 9.9 mg/dL (8.4-10.2); Carbon Dioxide 30 mmol/L (22-29); Chloride 104 mmol/L (96-108); Estimated Glomerular Filt Rate > 60; Glucose Random 94 mg/dL (60-115); Potassium 4.2 mmol/L (3.3-5.1); Sodium 142 mmol/L (135-145)
[2023-09-21 09:46] LABS: Prothrombin Time 11.8 SEC (11.1-13.3)
== END 2023-09-21 06:42 | disposition home or self-care (01) ==
LOC: HO.LAB 06:41
PROVIDERS: PCP Internal Medicine; Visit Provider Internal Medicine Cardiovascular Disease
DX: I35.0 Nonrheumatic aortic (valve) stenosis (principal)
CPT/HCPCS: 36415; 80048; 85027; 85610

== ENCOUNTER → 2023-10-09 23:59 | Outpatient (BNV) | payer MEDICARE, OTHER, SELFPAY | PROVIDERS: PCP Internal Medicine; Visit Provider Internal Medicine Cardiovascular Disease | DX: I35.0 Nonrheumatic aortic (valve) stenosis (principal) | CPT/HCPCS: 93460; 99152 ==

== ENCOUNTER 2023-10-12 08:43 | Outpatient (AMB) | payer MEDICARE, OTHER, SELFPAY ==
[2023-10-12 09:55] VITALS: BP 132/78; PULSE 76; TEMP 36.7; O2SAT 96
--- NOTE | 2023-10-12 09:55 | AM.OFFWIN_ITS ---
Intake Vital Signs 10/12/23 09:55 Height 4 ft 11 in BP 132/78 Blood Pressure Location Rt brachial Position Sitting Pulse 76 Pulse Source Pulse Oximeter Temp 98.1 F Temp Source Temporal Artery Scan Pulse Oximetry (%) 96 Oxygen Delivery Method Room Air Intake Visit Reasons: EST/sore throat since Sunday [id number] Intake Note: pt is here for c.o sore throat, possible fever since sunday Patient Tobacco Use Status: Never used Tobacco Allergies lisinopril Adverse Reaction (Intermediate, Verified 10/12/23 09:55) Cough bees Allergy (Intermediate, Uncoded 04/27/23 09:53) Rash Do you need a note to return to daycare/school/sports/work: No HPI HPI Comments History of Present Illness Details This is a 78-year-old female who presents to the office today for sick visit. Patient complaining of sore throat, congestion/rhinorrhea, dry cough, and headache x 3 days. She reports subjective fevers but she denies any measured fevers/chills. PFSH Medical History HTN (hypertension) Aortic stenosis Surgical History Hx of colonoscopy H/O tubal ligation History of hip surgery Family History Father CVD (cardiovascular disease) Mother Diabetes Social History Alcohol intake: current Alcohol intake frequency: 0-2 drinks per day Alcohol type: wine and hard liquor Patient Tobacco Use Status: Never used Tobacco Review of Systems Const All systems reviewed & are unremarkable except as noted in HPI and below Reports no additional complaints Eyes Reports no additional complaints ENT Reports no additional complaints Card Reports no additional complaints Resp Reports no additional complaints GI Reports no additional complaints Reports no additional complaints Musc Reports no additional complaints Skin/Breast Reports system reviewed and no additional complaints, except as documented Neuro Reports no additional complaints Psych Reports no additional complaints Endo Reports no additional complaints Johnny/Lymph Reports no additional complaints Aller/Immun Reports no additional complaints Physical Exam Vital Signs: Last Vital Signs Temp 98.1 F 10/12/23 09:55 Pulse 76 10/12/23 09:55 BP 132/78 10/12/23 09:55 Pulse Ox 96 10/12/23 09:55 Oxygen Delivery Method Room Air 10/12/23 09:55 Const Other: Vital signs reviewed. Constitutional: Non-toxic appearing. No acute distress. Well-developed and well-nourished. HEENT: Normocephalic and atraumatic. Tympanic membranes without erythema, edema, or bulging bilaterally. External auditory canals without erythema or edema bilaterally. Moist mucous membranes. No pharyngeal erythema or exudates. White exudates on tongue. Skin: Warm and dry. No rashes or lesions noted. Neck: Full and painless range of motion. No cervical lymphadenopathy. Cardio: Regular rate and rhythm. No murmurs, gallops, or rubs. No lower ext remity edema. No JVD. Pulmonary: No respiratory distress. No accessory muscle usage. Clear to auscultation bilaterally without wheezing, crackles, or rhonchi. Gastrointestinal: Soft, nontender, and nondistended in all 4 quadrants. Musculoskeletal: Normal range of motion in joints throughout the body. No deformity or other signs of injury. Neuro: Alert and oriented x4. Cranial nerves 2-12 grossly intact. No focal deficits appreciated. Psych: Normal mood and affect. Results AMB Rapid Strep AMB Rapid Strep Negative Last Edit by Aneudy Granados CMA on 10/12/23 10 :26 Results Reviewed Results Reviewed: Laboratory Last Values Strep Scn Rapid Clinic Negative 10/12/23 10:25 Assessment & Plan Assessment & Plan (1) Acute viral pharyngitis: Code(s): J02.9 - Acute pharyngitis, unspecified (2) Oral thrush: Code(s): B37.0 - Candidal stomatitis Plan This is a 78-year-old female who presented to the office complaining of viral URI symptoms such as sore throat, dry cough, congestion/rhinorrhea, headache, and myalgias. She denies any measured fevers. On physical examination, there are white plaques on her tongue but her physical exam is otherwise benign and she is overall nontoxic appearing. Patient presenting with signs and symptoms most consistent with acute upper respiratory tract infection and viral pharyngitis, also likely has oral thrush. Recommended symptomatic management including rest, increased fluids, tylenol for pain/fever, over the counter throat lozenges/decongestants. She was reassured that this is likely a self- limiting illness and no antibiotics are warranted at this time. Her rapid strep test was negative. She was also sent home on nystatin swich and spit for oral thrush. Patient advised to follow up here or go to the emergency room for worsening/persistent symptoms. Patient verbalized understanding and is agreeable with the plan. Orders: Orders AMB Rapid Strep Screen Today Z13.9 - Encounter for screening, unspecified Medications: New nystatin swish and swallow 1 mL PO DAILY 60 mL 0RF Coding Level of Care Code Est Pt Level 3 (67840) Diagnoses Acute viral pharyngitis J02.9 Oral thrush B37.0
== END 2023-10-12 10:37 | disposition home or self-care (01) ==
PROVIDERS: PCP Internal Medicine; Visit Provider Physician Assistant Medical
DX: J02.9 Acute pharyngitis, unspecified (principal); B37.0 Candidal stomatitis
CPT/HCPCS: 87880; 99213

== ENCOUNTER 2023-10-12 13:58 | Outpatient (REF) | payer MEDICARE, OTHER, SELFPAY ==
[2023-10-12 15:43] LABS: Influenza A PCR NEGATIVE (Negative); Influenza B PCR NEGATIVE (Negative); Resp Syncy Virus RNA Qual PCR NEGATIVE (Negative); SARS COV2 PCR INHOUSE POSITIVE (Negative)
== END 2023-10-12 13:59 | disposition home or self-care (01) ==
LOC: HO.HMGCLNP 13:58
PROVIDERS: Visit Provider Physician Assistant Medical
DX: Z11.52 Encounter for screening for COVID-19 (principal); Z20.822 Contact with and (suspected) exposure to COVID-19; R09.89 Other specified symptoms and signs involving the circulatory and respiratory systems
CPT/HCPCS: 0241U

== ENCOUNTER 2023-10-23 12:47 | Outpatient (AMB) | payer MEDICARE, OTHER, SELFPAY ==
[2023-10-23 12:50] VITALS: BP 110/70; PULSE 91; BMI 24.7
--- NOTE | 2023-10-23 12:50 | A.OFFVIS_ITS ---
Intake Vital Signs 10/23/23 12:50 Height 4 ft 11 in Weight 122 lb 2.177 oz BMI 24.7 BP 110/70 Blood Pressure Location Rt brachial Position Sitting Pulse 91 Pulse Source Pulse Oximeter Intake Visit Reasons: 2 wk s/p cath Intake Note: 2 wk s/p cath pt its feeling fine College Specialist Required: No Accompanied by: Son Allergies lisinopril Adverse Reaction (Intermediate, Verified 10/12/23 09:55) Cough bees Allergy (Intermediate, Uncoded 04/27/23 09:53) Rash Medication List - Last Reconciled 10/23/23 by Stephanie Oscar NP aspirin (Adult Low Dose Aspirin) 81 mg PO DAILY atorvastatin 10 mg PO DAILY calcium carbonate (Calcium 500) 500 mg PO DAILY losartan 50 mg PO BID multivitamin (Daily Multi-Vitamin tablet) 1 tab PO DAILY pantoprazole 40 mg PO DAILY HPI HPI Comments History of Present Illness Details 78-year-old female presents today for a follow-up after having a cardiac catheterization for the assessment of aortic stenosis. Which revealed severe aortic stenosis. Mean gradient of the aortic stenosis was 31 mmHg. Right radial site healing as expected. No bruising. tenderness, swelling, erythema noted. Still reports shortness of breath on exertion. She meets with Dr. Munroe on 10/31/23 [facility] Medical History HTN (hypertension) Aortic stenosis Surgical History Hx of colonoscopy H/O tubal ligation History of hip surgery Family History Father CVD (cardiovascular disease) Mother Diabetes Social History Alcohol intake: current Alcohol intake frequency: 0-2 drinks per day Alcohol type: wine and hard liquor Patient Tobacco Use Status: Never used Tobacco Review of Systems Const Denies chills, Denies fatigue, Denies fever(s), Denies frequent falls, Denies weakness, Denies weight gain and Denies weight loss ENT Denies dizziness Card Denies chest pain, Denies leg edema, Denies lightheadedness, Denies palpitations, Denies dyspnea and Reports dyspnea on exertion Resp Denies cough, Denies dyspnea and Reports dyspnea on exertion GI Denies hematochezia Musc Denies abnormal gait, Denies muscle weakness, Denies numbness, Denies radiating pain into limb, Denies stiffness and Denies tingling Neuro Denies abnormal gait, Denies dizziness, Denies frequent falls, Denies numbness, Denies tingling and Denies weakness Endo Denies fatigue and Denies palpitations Physical Exam Vital Signs: Last Vital Signs Pulse 91 10/23/23 12:50 BP 110/70 10/23/23 12:50 BMI result Body Mass Index 24.7 Const General: healthy appearing and no acute distress Nutritional Appearance: average body habitus Orientation/consciousness: patient oriented x3 Limitations: no limitations HEENT Head: Yes normal to inspection Eyes General: appearance normal, both eyes and all related structures Neck Neck: Yes normal visual inspection Chest Chest palpation & inspection: normal inspection of the chest Resp Effort & Inspection: normal respiratory effort Auscultation: clear to auscultation bilaterally Cardio Jugular venous distension: no JVD Palpation: normal PMI Rate: regular rate Rhythm: regular rhythm Heart sounds: S1 normal heart sound present, S2 normal heart sound present, no click, no gallops, Murmur heart sound present systolic at the right sternal border and no rubs GI Inspection: Yes normal to inspection Palpation (GI): Soft to palpation Auscultation: normal bowel sounds Skin General skin exam: no rashes or lesions noted Neuro General: patient oriented x3 Extrem Other: Right radial site healing as expected. No bruising. tenderness, swelling, erythema noted. General: Yes normal to inspection Psych Appearance: grossly normal Affect: Anxious affect present Assessment & Plan Assessment & Plan (1) H/O cardiac catheterization: Comment: By Dr. Salinas, Severe Aortic Stenosis LMCA: distal subsection 30% stenosis LAD: 1st emelina: Ostial 70% LCx: Prox CX: Ostial 50% stenosis RCA: R PDA: 40% stenosis Code(s): Z98.890 - Other specified postprocedural states (2) Aortic stenosis: Code(s): I35.0 - Nonrheumatic aortic (valve) stenosis Plan Meets with Dr. Munroe 10/31/2023 to discuss TAVR further. Fasting lipid panel to ensure LDL is at goal. Orders: Orders Lipid Panel 10/23/23 I10 - Essential (primary) hypertension, I35.0 - Nonrheumatic aortic (valve) stenosis Medications: Changed From atorvastatin 10 mg PO DAILY To atorvastatin 10 mg PO DAILY 90 days 90 tabs 1RF Coding Level of Care Code Est Pt Level 3 (47643) Diagnoses H/O cardiac catheterization Z98.890 Aortic stenosis I35.0
== END 2023-10-23 13:38 | disposition home or self-care (01) ==
PROVIDERS: PCP Internal Medicine; Visit Provider Nurse Practitioner
DX: Z98.890 Other specified postprocedural states (principal); I35.0 Nonrheumatic aortic (valve) stenosis
CPT/HCPCS: 99213

== ENCOUNTER → 2023-10-23 12:47 | Outpatient (BNVA) | payer MEDICARE, OTHER, SELFPAY | PROVIDERS: PCP Internal Medicine; Visit Provider Nurse Practitioner | DX: I35.0 Nonrheumatic aortic (valve) stenosis (principal); Z98.890 Other specified postprocedural states | CPT/HCPCS: 99212 ==

== ENCOUNTER 2023-11-15 08:39 | Outpatient (REF) | payer MEDICARE, OTHER, SELFPAY ==
[2023-11-15 09:39] LABS: CDiff Gene PCR NEGATIVE (Negative)
== END 2023-11-15 08:40 | disposition home or self-care (01) ==
LOC: HO.LNP 08:39
PROVIDERS: Visit Provider Internal Medicine Cardiovascular Disease
DX: K52.9 Noninfective gastroenteritis and colitis, unspecified (principal)
CPT/HCPCS: 87493; 87507

== ENCOUNTER 2023-12-10 11:37 | Outpatient (REF) | payer MEDICARE, OTHER, SELFPAY ==
--- NOTE | ~2023-12-10 | XR_ITS ---
EXAMINATION: XR CHEST CLINICAL INFORMATION: Pleural effusion COMPARISON: None available. TECHNIQUE: 2 views of the chest were obtained. FINDINGS: Bipolar pacer and aortic valve stenting. Heart size within normal limits. No vascular congestion or consolidations. Right costophrenic angle increased markings. No effusions. Demineralization and degenerative changes. XR/XR chest 2V IMPRESSION: Right costophrenic angle atelectasis. No definite pleural effusions.
== END 2023-12-10 11:38 | disposition home or self-care (01) ==
LOC: HO.XRAY 11:37
PROVIDERS: Absent Provider Internal Medicine Cardiovascular Disease; PCP Internal Medicine; Visit Provider Internal Medicine Gastroenterology
DX: J90 Pleural effusion, not elsewhere classified (principal); R05.9 Cough, unspecified; K52.9 Noninfective gastroenteritis and colitis, unspecified; K30 Functional dyspepsia
CPT/HCPCS: 71046; 99212

== ENCOUNTER 2023-12-10 11:37 | Outpatient (AMB) | payer MEDICARE, OTHER, SELFPAY ==
--- NOTE | 2023-12-10 11:51 | A.OFFVIS_ITS ---
Intake Vital Signs 12/10/23 11:52 Height 4 ft 11 in Weight 125 lb BMI 25.2 BP 166/77 H Blood Pressure Location Lt brachial Position Sitting Pulse 78 Intake Visit Reasons: follow up CT Scan and GI panel Intake Note: Patient follow up for CT scan and GI panel results. Patient cc: Indigestion with abdominal noises, loose BM and gasses. 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 Special Education Supervisor Required: No Accompanied by: Daughter Allergies lisinopril Adverse Reaction (Intermediate, Verified 12/10/23 11:51) Cough bees Allergy (Intermediate, Uncoded 04/27/23 09:53) Rash HPI follow up CT Scan and GI panel HPI Details 78 yr old patient being seen for follow up for indigestion RECAP: She had been having issues with indigestion for a long time she denies nausea or vomiting she denies dysphagia she has soem regurgitation usu 2 hrs after she eats trying to cut back on wine and chocolate and her portions she has bloating and gas she generally doesnt feel well she is doing less than she normally does she feels she has a lot fo stress in life she has looser type of stools in the morning, for a while no blood in stools she feels hungry all the time she has had x 3 colonoscopy in the past at [facility] --normal per her but did have hx of polyps She had TAVR procedure done recently she had CT with ?colitis noted after surgery possibly due to underdistention INTERIM: she has been having constipation --c diff was negative she tried rifaximin and it made no difference to her gas, bloating, regurgitation no blood in stool no nausea or vomiting she has abdo discomfort lower abdomen urine is normal EXAM: GENERAL: The patient is well developed and nontoxic. VITAL SIGNS:see workflow HEENT: Nonicteric sclerae, PERRLA, EOMI. Oropharynx clear. Moist mucous membranes. Conjunctivae appear well perfused. No thyroid mass. CHEST: Chest wall is tender, scar noted left upper chest area HEART: Regular rate and rhythm LUNGS: Clear to auscultation bilaterally. ABDOMEN: Soft, positive bowel sounds, nontender, no organomegaly.no flank tenderness SKIN: No rash, no excessive bruising, petechiae, or purpura. NEUROLOGIC: Cranial nerves II-XII intact without motor/sensory deficit. A/P: Regurgitation, and possible colitis on recent imaging--- DDX: neoplasia, dysmotility, reflux, Plan: 1/ egd and colo for further assessment o f possible colitis and gerd sx--suprep sent [facility] Medical History HTN (hypertension) Aortic stenosis Surgical History Hx of colonoscopy H/O tubal ligation History of hip surgery Family History Father CVD (cardiovascular disease) Mother Diabetes Social History Alcohol intake: current Alcohol intake frequency: 0-2 drinks per day Alcohol type: wine and hard liquor Patient Tobacco Use Status: Never used Tobacco Physical Exam Vital Signs: Last Vital Signs Pulse 78 12/10/23 11:52 BP 166/77 H 12/10/23 11:52 BMI result Body Mass Index 25.2 Assessment & Plan Assessment & Plan (1) Colitis: Code(s): K52.9 - Noninfective gastroenteritis and colitis, unspecified Plan: A/P: Regurgitation, and possible colitis on recent imaging--- DDX: neoplasia, dysmotility, reflux, Plan: 1/ egd and colo for further assessment of possible colitis and gerd sx--suprep sent (2) Indigestion: Code(s): K30 - Functional dyspepsia Plan: A/P: Regurgitation, and possible colitis on recent imaging--- DDX: neoplasia, dysmotility, reflux, Plan: 1/ egd and colo for further assessment of possible colitis and gerd sx--suprep sent Medications: New sodium,potassium,mag sulfates 17.5-3.13-1.6 gram (Suprep Bowel Prep Kit) DILUTE; drink 1/2 at 6-8 pm and half at 11 PM- 1AM 354 mL 0RF Coding Level of Care Code Est Pt Level 3 (82939) Diagnoses Colitis K52.9 Indigestion K30
[2023-12-10 11:52] VITALS: BP 166/77; PULSE 78; BMI 25.2
== END 2023-12-10 13:11 | disposition home or self-care (01) ==
PROVIDERS: PCP Internal Medicine; Visit Provider Internal Medicine Gastroenterology
DX: K52.9 Noninfective gastroenteritis and colitis, unspecified (principal); K30 Functional dyspepsia
CPT/HCPCS: 99213

== ENCOUNTER → 2023-12-27 10:48 | Outpatient (REF) | payer MEDICARE, OTHER, SELFPAY ==
--- NOTE | 2023-12-27 10:54 | CA_ITS ---
Transthoracic Echocardiogram Patient (Last, First, Middle): Richa Smith, Gender: Female Date of : 1945 Age: 78 Procedure Date: 12/27/2023 Procedure Type: Transthoracic Echocardiogram Location: OP Height: 147.32 cm Weight: 53.98 kg BSA: 1.46 m2 Heart Rate: bpm BP: 126 / 76 mmHg Commercial Energy Auditor: TO Referring MD: Jeremy Munroe MD Gun Fitter: Antoine Resendez MD Symptoms: S.P TAVR Study Quality: Fair/Contrast ECG Rhythm: Sinus Conclusions: - 1. Normal LV ejection fraction of 60-65% with impaired relaxation filling pattern 2. Normally function bioprosthetic aortic valve with mean gradient of 4 mmHg 3. Normal RV systolic pressure 4. No gross pericardial effusion Findings Procedure Information Contrast agent, definity, is being given per protocol without apparent complications. Left Ventricle Normal left ventricular size, thickness, and systolic function. The visually estimated ejection fraction is between 60-65%. Spectral Doppler is indicative of an impaired relaxation filling pattern. E/E prime ratio is between 8 and 15 consistent with indeterminate filling pressures. There is mild septal asymmetric hypertrophy. Right Ventricle Normal right ventricular cavity size and systolic function. There is a pacemaker wire seen in the right ventricle. Atria The left atrium is likely dilated. Interatrial shunt cannot be excluded. The right atrium is normal in size. A pacemaker wire is identified in the right atrium. Aortic Valve A bioprosthetic aortic valve is present. The prosthetic aortic valve appears to be functioning normally. The mean gradient is 4 mmHg. There is trace (trivial) aortic valve regurgitation. Mitral Valve There is mild anterior and posterior mitral leaflet thickening. There is mild mitral annular calcification. There is trace mitral valve regurgitation. There is no mitral valve stenosis. Pulmonic Valve The pulmonic valve was not well visualized. There is trace pulmonic valve regurgitation. Tricuspid Valve Normal tricuspid valve structure. There is trace tricuspid valve regurgitation. The right ventricular systolic pressure is normal. The right ventricular systolic pressure is 25 mmHg. Normal right atrial pressure. There is no evidence of pulmonary hypertension. Great Vessels All visible segments of the aorta are normal in size. The pulmonary artery was not well visualized. There is no dilatation of the ascending aorta measuring 3.00 cm. Venous The inferior vena cava is normal in size and collapses greater than 50% with inspiration. Pericardium/Pleural There is no evidence of pericardial effusion. Prior Study Comparison Changes noted compared to prior study dated: 08/01/2023. Normally function bioprosthetic aortic valve is now present. Measurements 2D Linear Measurements IVSd: 1.05 0.6-0.9/0.6-1.0 cm LVIDd: 2.99 3.9-5.3/4.2-5.9 cm LVIDd Index: 2.05 2.4-3.2/2.2-3.1 cm/m2 LVIDs: 1.98 2.0-3.6 cm LVPWd: 1.07 0.7-1.1 cm LA Diam: 3.40 2.7-3.8/3.0-4.0 cm LAIDs Index: 2.33 1.5-2.3 cm/m2 LV Mass: 110.97 67-162/88-224 g LV Mass Index: 76.01 43-95/49-115 g/m2 LVOT Diam: 2.00 3.0+(-)1.3 cm 2D Systolic Function EF 4C: 65.00 >55% EF 2C: 67.20 >55% EF BiP: 65.50 >55% Mitral Valve MV VTI: 0.25 MV Pk Yonas: 1.33 MV Mn Yonas: 0.79 MV Pk Grad: 7.00 MV Mn Grad: 3.00 MV Pk E: 0.65 MV PK A: 1.17 MV Decel Time: 139.00 E/A: 0.60 E'Lateral: 7.07 E'Medial: 4.79 E/E' Med: 13.50 E/E' Lat: 9.20 PHT: 41.00 MVA PHT: 5.37 MVA Continuity: 2.32 Decel [place]: 4.65 Aortic Valve AoV Pk Yonas: 1.44 AoV Mn Yonas: 0.99 AoV VTI: 0.27 AoV Pk Grad: 8.00 Aov Mn Grad: 4.00 GENEVA Cont.VTI: 2.18 LVOT LVOT Pk Yonas: 0.97 LVOT Mn Yonas: 0.74 LVOT VTI: 0.19 LVOT Pk Grad: 4.00 LVOT Mn Grad: 2.00 LVOT Diam: 2.00 LVOT Area: 3.14 Diastolic Function MV Pk E: 0.65 MV Pk A: 1.17 E/A: 0.60 E'Medial: 4.79 E/E' Med: 13.50 E' Laterial: 7.07 E/E' Lat: 9.20 Right Ventricle TAPSE (mm): 16.50 TVS' Yonas: 10.40 Tricuspid Valve TR Pk Yonas: 2.35 TR Pk Grad: 22.00 RA Press: 3.00 RVSP: 25.00 Great Vessels Aorta Ao Asc: 3.00 2.1-3.4 cm Updated in Other Vendor System with Status of Final Antoine Resendez MD electronically signed on 12/28/2023 2:08:20 PM with status of Final
== END ==
LOC: HO.CARD 10:48
PROVIDERS: PCP Internal Medicine; Visit Provider Internal Medicine Cardiovascular Disease
DX: Z95.2 Presence of prosthetic heart valve (principal)
CPT/HCPCS: 93306; Q9957

== ENCOUNTER → 2023-12-27 10:54 | Outpatient (BNV) | payer MEDICARE, OTHER, SELFPAY | PROVIDERS: PCP Internal Medicine; Visit Provider Internal Medicine Cardiovascular Disease | DX: I34.81 Nonrheumatic mitral (valve) annulus calcification (principal) | CPT/HCPCS: 93306 ==

== ENCOUNTER → 2024-01-06 23:59 | Outpatient (BNV) | payer MEDICARE, OTHER, SELFPAY ==
--- NOTE | 2024-01-08 16:24 | A.OFFVIS_ITS ---
Intake Intake Visit Reasons: Remote Device Check- Medtronic Allergies lisinopril Adverse Reaction (Intermediate, Verified 12/10/23 11:51) Cough bees Allergy (Intermediate, Uncoded 04/27/23 09:53) Rash [facility] Medical History (Updated 01/08/24 @ 16:25 by Antoine Resendez MD) Cardiac pacemaker in situ HTN (hypertension) Aortic stenosis Surgical History Hx of colonoscopy H/O tubal ligation History of hip surgery Family History Father CVD (cardiovascular disease) Mother Diabetes Social History Alcohol intake: current Alcohol intake frequency: 0-2 drinks per day Alcohol type: wine and hard liquor Patient Tobacco Use Status: Never used Tobacco Office Procedures Cardiac Device Check Cardiac Device Check Details: Remote pacemaker report generated 01/06/2024. Pacemaker function is adequate. Ventricular pacing 99% of the time [id number] Cardiac Device Interrogation, pacemaker Procedure code (CPT) selection complete Assessment & Plan Assessment & Plan (1) Cardiac pacemaker in situ: Code(s): Z95.0 - Presence of cardiac pacemaker Plan: See above Coding Level of Care Code Procedure Only Diagnoses Cardiac pacemaker in situ Z95.0 CPT Codes Cardiac Device Check - Cardiac Device 12: [id number] Cardiac Device Interrogation, pacemaker ([id number])
== END ==
PROVIDERS: PCP Internal Medicine; Visit Provider Internal Medicine Cardiovascular Disease
DX: I35.0 Nonrheumatic aortic (valve) stenosis (principal); Z95.0 Presence of cardiac pacemaker
CPT/HCPCS: 93294

== ENCOUNTER 2024-01-29 09:31 | Outpatient (AMB) | payer MEDICARE, OTHER, SELFPAY ==
--- NOTE | 2024-01-29 09:33 | MHC.OFFVIS ---
Intake Vital Signs 01/29/24 09:34 Height 4 ft 11 in Weight 119 lb 0.794 oz BMI 24.0 BP 120/70 Blood Pressure Location Lt brachial Position Sitting Pulse 80 Intake Visit Reasons: 3 mth f/up Intake Note: 3 month follow-up with Medtronic c/o numbness left side since pacemaker placement Generator Man Required: No Allergies lisinopril Adverse Reaction (Intermediate, Verified 12/10/23 11:51) Cough bees Allergy (Intermediate, Uncoded 04/27/23 09:53) Rash Medication List - Last Reconciled 01/29/24 by Antoine Resendez MD amoxicillin 2,000 mg PO DAILY aspirin (Adult Low Dose Aspirin) 81 mg PO DAILY atorvastatin 10 mg PO DAILY 90 days calcium carbonate (Calcium 500) 500 mg PO DAILY clopidogrel (Plavix) 75 mg PO DAILY losartan 50 mg PO BID multivitamin (Daily Multi-Vitamin tablet) 1 tab PO DAILY pantoprazole 40 mg PO DAILY sodium,potassium,mag sulfates 17.5-3.13-1.6 gram (Suprep Bowel Prep Kit) DILUTE; drink 1/2 at 6-8 pm and half at 11 PM- 1AM HPI HPI Comments History of Present Illness Details Richa comes for follow-up. Underwent transcatheter aortic valve replacement in December 04. Post TAVR echocardiogram shows normal function of the valve with mean gradient of 4 mm Hg. Unfortunately post TAVR she developed advanced AV block and underwent dual-chamber pacemaker, Medtronic. She has not very happy about it. She says post pacemaker placement she developed numbness on the left side of her face as well as left hand. The numbness around the lips on the left side as well as the fingers persist. She had a CT scan and was told that she had a lesion but I do not have a copy of the same. She did not have any motor weakness. Denies any palpitations. She is questioning use of dual antiplatelet agent which I told her it has to be used for total of 3 months. SBE prophylaxis lifelong. She comes for evaluation of pacemaker in post TAVR evaluation. On further asking she says she does not notice much improvement in her shortness of breath although she can function as need be. She is currently participating in phase 2 cardiac rehabilitation [facility] Medical History (Updated 01/29/24 @ 10:12 by Antoine Resendez MD) CAD (coronary artery disease) Aortic stenosis Cardiac pacemaker in situ HTN (hypertension) Surgical History (Updated 01/29/24 @ 10:14 by Antoine Resendez MD) H/O cardiac catheterization S/P TAVR (transcatheter aortic valve replacement) Hx of colonoscopy H/O tubal ligation History of hip surgery Family History Father CVD (cardiovascular disease) Mother Diabetes Social History Alcohol intake: current Alcohol intake frequency: 0-2 drinks per day Alcohol type: wine and hard liquor Patient Tobacco Use Status: Never used Tobacco Review of Systems Const Denies chills, Denies fatigue, Denies fever(s), Denies frequent falls, Denies weakness, Denies weight gain and Denies weight loss ENT Denies dizziness Card Denies chest pain, Denies leg edema, Denies lightheadedness, Denies palpitations, Denies dyspnea, Denies dyspnea on exertion, Denies orthopnea and Denies other (loss of consciousness) Resp Denies cough, Denies dyspnea and Denies dyspnea on exertion GI Denies hematochezia and Denies change in stool character Musc Denies abnormal gait, Denies muscle weakness, Denies numbness, Denies radiating pain into limb and Denies tingling Neuro Denies abnormal gait, Denies dizziness, Denies frequent falls, Denies numbness, Denies tingling and Denies weakness Endo Denies fatigue and Denies palpitations Physical Exam Vital Signs: Last Vital Signs Pulse 80 01/29/24 09:34 BP 120/70 01/29/24 09:34 BMI result Body Mass Index 24.0 Const General: cooperative, comfortable, no acute distress, alert, awake, anxious and well groomed Nutritional Appearance: average body habitus Orientation/consciousness: patient oriented x3 Limitations: no limitations Neck Neck: Yes trachea midline, Yes supple and Yes no JVD Resp Effort & Inspection: normal respiratory effort Auscultation: clear to auscultation bilaterally Cardio Jugular venous distension: no JVD Palpation: normal PMI Rate: regular rate Rhythm: regular rhythm Heart sounds: S1 normal heart sound present, S2 normal heart sound present, no click, no gallops and Murmur heart sound present systolic late, decrescendo and crescendo GI Auscultation: normal bowel sounds Skin General skin exam: no rashes or lesions noted Neuro General: patient oriented x3 and no focal motor deficits Extrem General: Yes no clubbing, cyanosis or edema Psych Appearance: grossly normal Affect: Anxious affect present Office Procedures Cardiac Device Check Cardiac Device Check Details: Dual-chamber Medtronic pacemaker which was reprogrammed from DDD to DDDR. On reprogramming with rate response ventricular pacing dissipated and patient was then on her own with sensing. Prior to this she was pacing 98% of the time in the ventricle. Atrial ventricular sensing is adequate. Atrial ventricular pacing thresholds are excellent and reprogrammed to enhance battery life. Pacing lead impedance is stable. For episodes of high ventricular rate noted consistent with SVT. Battery life is at about 16 years [id number] Cardiac Device Check, pacemaker dual lead Procedure code (CPT) selection complete Assessment & Plan Assessment & Plan (1) S/P TAVR (transcatheter aortic valve replacement): Comment: November 2023, 26 mm Evolut Code(s): Z95.2 - Presence of prosthetic heart valve Plan: Status post transcatheter aortic valve replacement. Patient had post operative complications with advanced AV block as well as stroke-like symptoms. She is scheduled to see neurologist in near future. Her echocardiogram showed normal function of the bioprosthetic valve. Continue dual antiplatelet therapy for total of 3 months. Importance of this was discussed. SBE prophylaxis as per ACC/[place] guidelines. Continue aggressive risk factor modification, see below. She is encouraged to proceed and complete phase 2 cardiac rehabilitation. (2) Cardiac pacemaker in situ: Code(s): Z95.0 - Presence of cardiac pacemaker Plan: Cardiac pacemaker in-situ for post TAVR advanced AV block. After reprogramming from DDD to DDDR patient's ventricular pacing dissipated. Hope in the future she does not require much RV pacing at all. Will continue monitor remotely every 3 months and follow up in the clinic in 6 months time. (3) CAD (coronary artery disease): Code(s): I25.10 - Atherosclerotic heart disease of [place] coronary artery without angina pectoris Plan: Nonobstructive CAD by cardiac catheterization. Continue lifelong aspirin therapy. Continue aggressive risk factor modification. Goal LDL less than 70 mg/dL. Advised lipid panel near future. Continue aggressive management of hypertension which is currently well optimized. Will follow up in the clinic in 6 months time, sooner p.r.n.. Thank you for allowing me to partake in her care Medications: New amoxicillin before dental 2,000 mg (4 x 500 mg) PO DAILY PRN 4 caps 2RF Pre dental Coding Level of Care Code Est Pt Level 4 (23826) Diagnoses S/P TAVR (transcatheter aortic valve replacement) Z95.2 Cardiac pacemaker in situ Z95.0 CAD (coronary artery disease) I25.10 CPT Codes Cardiac Device Check - Cardiac Device 2: [id number] Cardiac Device Check, pacemaker dual lead ([id number])
[2024-01-29 09:34] VITALS: BP 120/70; PULSE 80; BMI 24.0
== END 2024-01-29 10:09 | disposition home or self-care (01) ==
PROVIDERS: PCP Internal Medicine; Visit Provider Internal Medicine Cardiovascular Disease
DX: Z95.2 Presence of prosthetic heart valve (principal); Z95.0 Presence of cardiac pacemaker; I25.10 Atherosclerotic heart disease of native coronary artery without angina pectoris
CPT/HCPCS: 93280; 99214

== ENCOUNTER → 2024-01-29 09:31 | Outpatient (BNVA) | payer MEDICARE, OTHER, SELFPAY | PROVIDERS: PCP Internal Medicine; Visit Provider Internal Medicine Cardiovascular Disease | DX: Z45.018 Encounter for adjustment and management of other part of cardiac pacemaker (principal); I25.10 Atherosclerotic heart disease of native coronary artery without angina pectoris; Z95.2 Presence of prosthetic heart valve | CPT/HCPCS: 93280; 99212 ==

== ENCOUNTER 2024-02-06 12:32 | Outpatient (REF) | payer MEDICARE, OTHER, SELFPAY ==
[2024-02-06 13:58] LABS: B Type Natriuretic Peptide 53 pg/mL (<100)
== END 2024-02-06 12:33 | disposition home or self-care (01) ==
LOC: HO.LAB 12:32
PROVIDERS: PCP Internal Medicine; Visit Provider Internal Medicine Cardiovascular Disease
DX: I50.9 Heart failure, unspecified (principal); R06.02 Shortness of breath; I31.9 Disease of pericardium, unspecified
CPT/HCPCS: 36415; 83880

== ENCOUNTER 2024-02-12 15:04 | Outpatient (AMB) | payer MEDICARE, OTHER, SELFPAY ==
[2024-02-12 15:09] VITALS: BP 130/68; PULSE 81; BMI 24.4
--- NOTE | 2024-02-12 15:09 | MHC.OFFVIS ---
Intake Vital Signs 02/12/24 15:09 Height 4 ft 11 in Weight 121 lb BMI 24.4 BP 130/68 Blood Pressure Location Lt brachial Position Sitting Pulse 81 Pulse Source Monitor Intake Visit Reasons: Pericarditis Allergies lisinopril Adverse Reaction (Intermediate, Verified 12/10/23 11:51) Cough bees Allergy (Intermediate, Uncoded 04/27/23 09:53) Rash Medication List - Last Reconciled 02/12/24 by Stephanie Oscar NP amoxicillin 2,000 mg (4 x 500 mg) PO DAILY PRN aspirin (Adult Low Dose Aspirin) 81 mg PO DAILY atorvastatin 10 mg PO DAILY 90 days calcium carbonate (Calcium 500) 500 mg PO DAILY clopidogrel (Plavix) 75 mg PO DAILY colchicine 0.6 mg PO BID losartan 50 mg PO BID multivitamin (Daily Multi-Vitamin tablet) 1 tab PO DAILY pantoprazole 40 mg PO DAILY sodium,potassium,mag sulfates 17.5-3.13-1.6 gram (Suprep Bowel Prep Kit) DILUTE; drink 1/2 at 6-8 pm and half at 11 PM- 1AM [facility] Medical History (Updated 01/29/24 @ 10:12 by Antoine Resendez MD) CAD (coronary artery disease) Aortic stenosis Cardiac pacemaker in situ HTN (hypertension) Surgical History (Updated 01/29/24 @ 10:14 by Antoine Resendez MD) H/O cardiac catheterization S/P TAVR (transcatheter aortic valve replacement) Hx of colonoscopy H/O tubal ligation History of hip surgery Family History Father CVD (cardiovascular disease) Mother Diabetes Social History Alcohol intake: current Alcohol intake frequency: 0-2 drinks per day Alcohol type: wine and hard liquor Patient Tobacco Use Status: Never used Tobacco Review of Systems Const Denies weakness ENT Denies dizziness Card Denies chest pain, Denies chest pain with activity, Denies syncope, Denies rapid heart rate, Denies pedal edema, Denies edema, Denies leg edema, Denies lightheadedness, Denies palpitations, Denies dyspnea, Denies dyspnea on exertion and Denies orthopnea Resp Denies cough, Denies dyspnea and Denies dyspnea on exertion GI Denies hematochezia and Denies change in stool character Musc Denies abnormal gait, Denies muscle cramps, Denies muscle weakness, Denies numbness, Denies radiating pain into limb and Denies tingling Neuro Denies abnormal gait, Denies dizziness, Denies syncope, Denies numbness, Denies tingling and Denies weakness Endo Denies palpitations Physical Exam Vital Signs: Last Vital Signs Pulse 81 02/12/24 15:09 BP 130/68 02/12/24 15:09 BMI result Body Mass Index 24.4 Office Procedures EKG Details: EKG today. Atrial paced rhythm.septal infarct, age undetermined. rate 81ms. QRS 92ms. QTc 441ms. [id number], Complete Assessment & Plan Assessment & Plan (1) Pericarditis: Code(s): I31.9 - Disease of pericardium, unspecified Plan Discharged from [facility] [place]/04[place]24 with Pericarditis. On colchicine 0.6mg BID for three months. Exercise as tolerated. Tylenol as needed for pain. She is on pantoprazole for protection of gastritis. Will follow-up in about 3 months nearing end of colchicine use to check in on pain. Coding Level of Care Code Est Pt Level 3 (79265) Diagnoses Pericarditis I31.9 CPT Codes EKG - CPT: 32198-[id number], Complete ([id number])
== END 2024-02-12 15:56 | disposition home or self-care (01) ==
PROVIDERS: PCP Internal Medicine; Visit Provider Nurse Practitioner
DX: R94.31 Abnormal electrocardiogram [ECG] [EKG] (principal)
CPT/HCPCS: 93010; 99213

== ENCOUNTER → 2024-02-12 15:04 | Outpatient (BNVA) | payer MEDICARE, OTHER, SELFPAY | PROVIDERS: PCP Internal Medicine; Visit Provider Nurse Practitioner | DX: I31.9 Disease of pericardium, unspecified (principal) | CPT/HCPCS: 93005; 99212 ==

== ENCOUNTER 2024-02-27 09:04 | Outpatient (REF) | payer MEDICARE, OTHER, SELFPAY ==
[2024-02-27 09:18] LABS: MANUAL DIFF FLAG NO
[2024-02-27 09:54] LABS: Basophils Percent Auto 0.5 % (0-2); Eosinophils Absolute Auto 0.2 X10*3/uL (0.0-0.4); Eosinophils Percent Auto 4.1 % (0-4); Hematocrit 38.2 % (37.0-47.0); Imm Gran Abs Auto 0.03 X10*3/uL (0.00-0.03); Imm Gran Pct Auto 0.5 % (0.0-0.4); Lymphocytes Absolute Auto 1.4 X10*3/uL (1.2-4.9); Lymphocytes Percent Auto 23.1 % (20-40); Mean Corpuscular HGB Conc 31.4 g/dl (31.0-35.0); Mean Corpuscular Hemoglobin 24.4 pg (27.0-33.0); Mean Corpuscular Volume 77.6 fL (80.0-98.0); Mean Platelet Volume 9.8 fL (9.4-12.3); Monocytes Absolute Auto 0.7 X10*3/uL (0.1-1.2); Monocytes Percent Auto 12.2 % (2-11); Neutrophils Absolute Auto 3.5 x10*3/uL (2.0-8.3); Neutrophils Percent Auto 59.6 % (45-73); Platelet Count 414 X10*3/uL (160-400); Red Blood Count 4.92 X10*6/uL (4.20-5.50); Red Cell Distribution Width 15.2 % (11.0-16.0); White Blood Count 5.9 X10*3/uL (4.8-10.8)
[2024-02-27 10:28] LABS: Alanine Aminotransferase 15 U/L (0-31); Albumin Level 4.4 g/dL (3.5-5.0); Alkaline Phosphatase 100 U/L (39-117); Aspartate Amino Transferase 24 U/L (5-31); Bilirubin Direct 0.2 mg/dL (0.0-0.5); Bilirubin Total 0.3 mg/dL (0.0-1.0); Total Protein 7.7 g/dL (6.5-8.0)
== END 2024-02-27 09:05 | disposition home or self-care (01) ==
LOC: HO.LAB 09:04
PROVIDERS: PCP Internal Medicine; Visit Provider Internal Medicine Cardiovascular Disease
DX: R10.9 Unspecified abdominal pain (principal); R19.7 Diarrhea, unspecified
CPT/HCPCS: 36415; 80076; 85025

== ENCOUNTER 2024-03-03 14:21 | Outpatient (REF) | payer MEDICARE, OTHER, SELFPAY ==
[2024-03-03 15:28] LABS: Erythrocyte Sedimentation Rate 34 MM/HR (0-20)
[2024-03-04 13:38] LABS: CRP High Sensitivity >10.0 mg/L
== END 2024-03-03 14:22 | disposition home or self-care (01) ==
LOC: HO.LAB 14:21
PROVIDERS: PCP Internal Medicine; Visit Provider Internal Medicine Cardiovascular Disease
DX: R07.9 Chest pain, unspecified (principal); I31.9 Disease of pericardium, unspecified; Z95.2 Presence of prosthetic heart valve
CPT/HCPCS: 36415; 85652; 86141

== ENCOUNTER 2024-03-05 13:52 | Outpatient (RCR) | payer MEDICARE, OTHER, SELFPAY | END 2024-04-02 13:45 | disposition home or self-care (01) | LOC: HO.OT 13:52 | PROVIDERS: PCP Internal Medicine; Visit Provider Psychiatry & Neurology Neurology | DX: R20.2 Paresthesia of skin (principal) | CPT/HCPCS: 97110; 97165 ==

== ENCOUNTER 2024-04-23 10:00 | Outpatient (RCR) | payer MEDICARE, OTHER, SELFPAY | END 2024-04-25 15:17 | disposition home or self-care (01) | LOC: HO.CR 10:00 | PROVIDERS: PCP Internal Medicine; Visit Provider Internal Medicine Cardiovascular Disease | DX: Z95.2 Presence of prosthetic heart valve (principal) | CPT/HCPCS: 93798 ==

== ENCOUNTER 2024-04-29 13:34 | Outpatient (AMB) | payer MEDICARE, OTHER, SELFPAY ==
[2024-04-29 13:38] VITALS: BP 116/68; PULSE 96; BMI 24.0
--- NOTE | 2024-04-29 13:38 | A.OFFVIS_ITS ---
Vital Signs 04/29/24 13:38 Height 4 ft 11 in Weight 119 lb 0.794 oz BMI 24.0 BP 116/68 Blood Pressure Location Lt brachial Position Sitting Pulse 96 Pulse Source Pulse Oximeter Intake Visit Reasons: 2.5 mth f/up Allergies lisinopril Adverse Reaction (Intermediate, Verified 12/10/23 11:51) Cough bees Allergy (Intermediate, Uncoded 04/27/23 09:53) Rash Medication List - Last Reconciled 04/29/24 by Stephanie Oscar NP aspirin (Adult Low Dose Aspirin) 81 mg PO DAILY atorvastatin 10 mg PO DAILY 90 days calcium carbonate (Calcium 500) 500 mg PO DAILY clopidogrel (Plavix) 75 mg PO DAILY colchicine 0.6 mg PO BID losartan 50 mg PO BID multivitamin (Daily Multi-Vitamin tablet) 1 tab PO DAILY pantoprazole 40 mg PO DAILY HPI Comments Details: 79-year-old female presents today for a follow-up. She has a medical history of TAVR which occured 12/04/2023, Medtronic dual-chamber pacemaker placement. She reports she has been doing fine. She reports she worried her pacemaker is not monitored. Reports her breathing is fine, denies any chest pains. She is finishing up her Colchicine in 5 days. GI distress has improved. She is still doing as she needs. She this morning trimmed the bushes in her yard without difficulty. [facility] Medical History CAD (coronary artery disease) Aortic stenosis Cardiac pacemaker in situ HTN (hypertension) Surgical History H/O cardiac catheterization S/P TAVR (transcatheter aortic valve replacement) Hx of colonoscopy H/O tubal ligation History of hip surgery Family History Father CVD (cardiovascular disease) Mother Diabetes Social History Alcohol intake: current Alcohol intake frequency: 0-2 drinks per day Alcohol type: wine and hard liquor Patient Tobacco Use Status: Never used Tobacco Review of Systems Const Denies weakness ENT Denies dizziness Card Denies chest pain, Denies chest pain with activity, Denies syncope, Denies rapid heart rate, Denies pedal edema, Denies edema, Denies leg edema, Denies lightheadedness, Denies palpitations, Denies dyspnea, Denies dyspnea on exertion and Denies orthopnea Resp Denies cough, Denies dyspnea and Denies dyspnea on exertion GI Denies hematochezia and Denies change in stool character Musc Denies abnormal gait, Denies muscle cramps, Denies muscle weakness, Denies numbness, Denies radiating pain into limb and Denies tingling Neuro Denies abnormal gait, Denies dizziness, Denies syncope, Denies numbness, Denies tingling and Denies weakness Endo Denies palpitations Physical Exam Vital Signs: Last Vital Signs Pulse 96 04/29/24 13:38 BP 116/68 04/29/24 13:38 BMI result Body Mass Index 24.0 Assessment & Plan Assessment & Plan (1) Cardiac pacemaker in situ: Comment: BrightLinetronic Code(s): Z95.0 - Presence of cardiac pacemaker Category: Medical Plan: Placed post TAVR for advanced AV block. Will monitor every 3 months remotely. (2) CAD (coronary artery disease): Code(s): I25.10 - Atherosclerotic heart disease of [place] coronary artery without angina pectoris Category: Medical Plan: Nonobstructive CAD by cardiac catherization. Lifelong aspirin therapy. Last LDL on 12/13/2023 was 55. (3) Pericarditis: Code(s): I31.9 - Disease of pericardium, unspecified Category: Medical Plan: Almost done with her colchicine. Feeling much better. Due for labs after completion of colchicine. Coding Level of Care Code Est Pt Level 3 (18568) Diagnoses Cardiac pacemaker in situ Z95.0 CAD (coronary artery disease) I25.10 Pericarditis I31.9
== END 2024-04-29 14:11 | disposition home or self-care (01) ==
PROVIDERS: PCP Internal Medicine; Visit Provider Nurse Practitioner
DX: I25.10 Atherosclerotic heart disease of native coronary artery without angina pectoris (principal); I30.9 Acute pericarditis, unspecified; Z95.0 Presence of cardiac pacemaker; Z95.2 Presence of prosthetic heart valve
CPT/HCPCS: 99213

== ENCOUNTER → 2024-04-29 13:34 | Outpatient (BNVA) | payer MEDICARE, OTHER, SELFPAY | PROVIDERS: PCP Internal Medicine; Visit Provider Nurse Practitioner | DX: I25.10 Atherosclerotic heart disease of native coronary artery without angina pectoris (principal); I10 Essential (primary) hypertension; I35.0 Nonrheumatic aortic (valve) stenosis; I31.9 Disease of pericardium, unspecified; Z95.0 Presence of cardiac pacemaker; Z95.2 Presence of prosthetic heart valve | CPT/HCPCS: 99212 ==

== ENCOUNTER → 2024-05-04 23:59 | Outpatient (BNV) | payer MEDICARE, OTHER, SELFPAY ==
--- NOTE | 2024-05-07 13:00 | MHC.OFFVIS ---
Intake Visit Reasons: Remote Device Check- Medtronic Allergies lisinopril Adverse Reaction (Intermediate, Verified 12/10/23 11:51) Cough bees Allergy (Intermediate, Uncoded 04/27/23 09:53) Rash PFSH Medical History CAD (coronary artery disease) Aortic stenosis Cardiac pacemaker in situ HTN (hypertension) Surgical History H/O cardiac catheterization S/P TAVR (transcatheter aortic valve replacement) Hx of colonoscopy H/O tubal ligation History of hip surgery Family History Father CVD (cardiovascular disease) Mother Diabetes Social History Alcohol intake: current Alcohol intake frequency: 0-2 drinks per day Alcohol type: wine and hard liquor Patient Tobacco Use Status: Never used Tobacco Office Procedures Cardiac Device Check Cardiac Device Check Details: Remote pacemaker report generated 05/04/2024. Pacemaker function is adequate [id number] Cardiac Device Interrogation, pacemaker Procedure code (CPT) selection complete Assessment & Plan Assessment & Plan (1) Cardiac pacemaker in situ: Comment: Medtronic Code(s): Z95.0 - Presence of cardiac pacemaker Category: Medical Plan: See above Coding Level of Care Code Procedure Only Diagnoses Cardiac pacemaker in situ Z95.0 CPT Codes Cardiac Device Check - Cardiac Device 12: [id number] Cardiac Device Interrogation, pacemaker ([id number])
== END ==
PROVIDERS: PCP Internal Medicine; Visit Provider Internal Medicine Cardiovascular Disease
DX: Z45.018 Encounter for adjustment and management of other part of cardiac pacemaker (principal)
CPT/HCPCS: 93294

== ENCOUNTER 2024-05-05 12:28 | Outpatient (REF) | payer MEDICARE, OTHER, SELFPAY ==
[2024-05-05 13:47] LABS: Erythrocyte Sedimentation Rate 7 MM/HR (0-20)
[2024-05-06 13:23] LABS: CRP High Sensitivity 1.2 mg/L
== END 2024-05-05 12:29 | disposition home or self-care (01) ==
LOC: HO.LAB 12:28
PROVIDERS: PCP Internal Medicine; Visit Provider Nurse Practitioner
DX: I31.9 Disease of pericardium, unspecified (principal)
CPT/HCPCS: 36415; 85652; 86141

== ENCOUNTER 2024-06-11 10:20 | Outpatient (REF) | payer MEDICARE, OTHER, SELFPAY ==
--- NOTE | ~2024-06-11 | MM_ITS ---
EXAMINATION: MM SCREENING DIGITAL BREAST TOMOSYNTHESIS, BILATERAL CLINICAL INFORMATION: Screening. Asymptomatic. COMPARISON: Mammography: This study is compared with prior exams dating back to 2018. TECHNIQUE: Digital breast tomosynthesis is performed in both the craniocaudal and mediolateral oblique views along with computer-aided detection (CAD). Synthesized 2D images are generated from the tomosynthesis. FINDINGS: There are scattered areas of fibroglandular density (ACR BI-RADS breast composition Category b). There are no significant masses, abnormal calcifications, or other abnormalities. Few, bilateral, unchanged, benign calcifications are present. MM/MM tomosynthesis screening BI IMPRESSION: No mammographic evidence of malignancy. ASSESSMENT: BI-RADS BI-RADS 2 - Benign Findings RECOMMENDATION: Routine annual mammography screening. 1 year F/U This examination should not preclude the clinical evaluation of a suspicious palpable abnormality. This patient's information was entered into a reminder system with a target due date for their next mammogram.
== END 2024-06-11 10:21 | disposition home or self-care (01) ==
LOC: HO.MAMMO 10:20
PROVIDERS: PCP Internal Medicine; Visit Provider Internal Medicine
DX: Z12.31 Encounter for screening mammogram for malignant neoplasm of breast (principal)
CPT/HCPCS: 77063; 77067

== ENCOUNTER → 2024-06-11 10:30 | Outpatient (BNV) | payer MEDICARE, OTHER, SELFPAY | PROVIDERS: PCP Internal Medicine; Visit Provider Radiology Diagnostic Radiology | DX: Z12.31 Encounter for screening mammogram for malignant neoplasm of breast (principal) | CPT/HCPCS: 77063; 77067 ==

== ENCOUNTER 2024-07-25 06:37 | Outpatient (REF) | payer MEDICARE, OTHER, SELFPAY ==
[2024-07-25 06:58] LABS: MANUAL DIFF FLAG NO
[2024-07-25 07:58] LABS: Basophils Percent Auto 0.1 % (0-2); Hematocrit 44.4 % (37.0-47.0); Imm Gran Pct Auto 0.7 % (0.0-0.4); Lymphocytes Absolute Auto 1.1 X10*3/uL (1.2-4.9); Lymphocytes Percent Auto 8.4 % (20-40); Mean Corpuscular HGB Conc 31.5 g/dl (31.0-35.0); Mean Corpuscular Hemoglobin 24.6 pg (27.0-33.0); Mean Platelet Volume 10.4 fL (9.4-12.3); Monocytes Percent Auto 7.5 % (2-11); Neutrophils Absolute Auto 11.2 x10*3/uL (2.0-8.3); Neutrophils Percent Auto 83.3 % (45-73); Platelet Count 351 X10*3/uL (160-400); Red Blood Count 5.69 X10*6/uL (4.20-5.50); Red Cell Distribution Width 18.7 % (11.0-16.0); White Blood Count 13.4 X10*3/uL (4.8-10.8)
[2024-07-25 08:04] LABS: Estimated Average Glucose 123 mg/dL; Hemoglobin A1c % 5.9 % (<6.0)
[2024-07-25 08:25] LABS: Appearance Urine Clear; Color Urine Yellow; Glucose Urine UA Negative (Negative); Leukocyte Esterase Urine Negative (Negative); Nitrite Urine Negative (Negative); Urine Blood Negative (Negative); Urine Ketones Negative (Negative); Urine Protein Negative (Neg-Trace)
[2024-07-25 08:29] LABS: Bacteria Urine None Seen (None Seen); Hyaline Casts Urine 0-2 /LPF (0-2); RBC Urine 0-2 /HPF (0-2); Squamous Epithelial Cell Urine 0-2 /HPF (0-2); WBC Urine 0-5 /HPF (0-5)
[2024-07-25 08:47] LABS: Alanine Aminotransferase 15 U/L (0-31); Albumin Level 4.6 g/dL (3.5-5.0); Alkaline Phosphatase 85 U/L (39-117); Anion Gap 13 (12-20); Aspartate Amino Transferase 23 U/L (5-31); Bilirubin Total 0.5 mg/dL (0.0-1.0); Blood Urea Nitrogen 14 mg/dL (9-16); Calcium 10.6 mg/dL (8.4-10.2); Carbon Dioxide 25 mmol/L (22-29); Chloride 106 mmol/L (96-108); Cholesterol 196 mg/dL (<200); Estimated Glomerular Filt Rate > 60; Glucose Random 117 mg/dL (60-115); HDL Cholesterol 72 mg/dL (>40); LDL Cholesterol Calculated 100 mg/dL (<100); Potassium 4.1 mmol/L (3.3-5.1); Sodium 140 mmol/L (135-145); Thyroid Stimulating Hormone 0.52 uIU/mL (0.32-4.0); Total Protein 7.7 g/dL (6.5-8.0); Triglycerides 120 mg/dL (<150)
== END 2024-07-25 06:38 | disposition home or self-care (01) ==
LOC: HO.LAB 06:37
PROVIDERS: PCP Internal Medicine; Visit Provider Internal Medicine
DX: I35.0 Nonrheumatic aortic (valve) stenosis (principal); I10 Essential (primary) hypertension; K21.9 Gastro-esophageal reflux disease without esophagitis; E78.00 Pure hypercholesterolemia, unspecified; R73.01 Impaired fasting glucose
CPT/HCPCS: 36415; 80053; 80061; 81001; 83036; 84443; 85025

== ENCOUNTER 2024-07-29 09:50 | Outpatient (AMB) | payer MEDICARE, OTHER, SELFPAY ==
--- NOTE | 2024-07-29 10:06 | A.OFFVIS_ITS ---
Vital Signs 07/29/24 10:07 Height 4 ft 11 in Weight 116 lb 13.52 oz BMI 23.6 BP 118/74 Blood Pressure Location Lt brachial Position Sitting Pulse 83 Intake Visit Reasons: 6 mth f/up Intake Note: 6 month follow-up c/o heart burn with Medtronic check Ict Help Desk Technician Required: No Allergies lisinopril Adverse Reaction (Intermediate, Verified 12/10/23 11:51) Cough bees Allergy (Intermediate, Uncoded 04/27/23 09:53) Rash Medication List - Last Reconciled 07/29/24 by Antoine Resendez MD aspirin (Adult Low Dose Aspirin) 81 mg PO DAILY atorvastatin 10 mg PO DAILY 90 days calcium carbonate (Calcium 500) 500 mg PO DAILY losartan 50 mg PO BID multivitamin (Daily Multi-Vitamin tablet) 1 tab PO DAILY pantoprazole 40 mg PO DAILY HPI Comments Details: Marisela comes for follow-up. She has been doing well from cardiac perspective. She continues to have numbness in her left arm related to a stroke. Continues to have indigestion symptoms. She is going for colonoscopy in couple of weeks. She denies any exertional chest pain or shortness of breath. She has started golfing again. She is currently off colchicine. She also says she is off clopidogrel. He otherwise takes all her medications. Denies any prolonged palpitation irregular heartbeat. No lightheadedness, syncope. No heart failure symptoms. [facility] Medical History (Updated 07/29/24 @ 10:38 by Antoine Resendez MD) Pericarditis CAD (coronary artery disease) Aortic stenosis Cardiac pacemaker in situ HTN (hypertension) Surgical History H/O cardiac catheterization S/P TAVR (transcatheter aortic valve replacement) Hx of colonoscopy H/O tubal ligation History of hip surgery Family History Father CVD (cardiovascular disease) Mother Diabetes Social History Alcohol intake: current Alcohol intake frequency: 0-2 drinks per day Alcohol type: wine and hard liquor Patient Tobacco Use Status: Never used Tobacco Review of Systems Const Denies chills, Denies fatigue, Denies fever(s), Denies frequent falls, Denies weakness, Denies weight gain and Denies weight loss ENT Denies dizziness Card Denies chest pain, Denies leg edema, Denies lightheadedness, Denies palpitations, Denies dyspnea, Denies dyspnea on exertion, Denies orthopnea and Denies other (loss of consciousness) Resp Denies cough, Denies dyspnea and Denies dyspnea on exertion GI Denies hematochezia and Denies change in stool character Musc Denies abnormal gait, Denies muscle weakness, Denies numbness, Denies radiating pain into limb and Denies tingling Neuro Denies abnormal gait, Denies dizziness, Denies frequent falls, Denies numbness, Denies tingling and Denies weakness Endo Denies fatigue and Denies palpitations Physical Exam Vital Signs: Last Vital Signs Pulse 83 07/29/24 10:07 BP 118/74 07/29/24 10:07 BMI result Body Mass Index 23.6 Const General: cooperative, comfortable, no acute distress, alert, awake, anxious and well groomed Nutritional Appearance: average body habitus Orientation/consciousness: patient oriented x3 Limitations: no limitations Neck Neck: Yes trachea midline, Yes supple and Yes no JVD Resp Effort & Inspection: normal respiratory effort Auscultation: clear to auscultation bilaterally Cardio Jugular venous distension: no JVD Palpation: normal PMI Rate: regular rate Rhythm: regular rhythm Heart sounds: S1 normal heart sound present, S2 normal heart sound present, no click, no gallops and Murmur heart sound present systolic late, decrescendo and crescendo GI Auscultation: normal bowel sounds Skin General skin exam: no rashes or lesions noted Neuro General: patient oriented x3 and no focal motor deficits Extrem General: Yes no clubbing, cyanosis or edema Psych Appearance: grossly normal Affect: Anxious affect present Office Procedures Cardiac Device Check Cardiac Device Check Details: Dual-chamber Medtronic pacemaker in place programmed in MVP mode with rate response at 60 beats per minute. Atrial pacing 3% of the time. Patient is very active to about 6 hours a day. Two episodes of high ventricular rate consistent with SVT noted. Atrial ventricular sensing is excellent. Atrial ventricular pacing thresholds excellent and reprogrammed to enhance battery life. Pacing lead impedance is stable. Battery life is at 14.3 years [id number] Cardiac Device Check, pacemaker dual lead Procedure code (CPT) selection complete Assessment & Plan Assessment & Plan (1) S/P TAVR (transcatheter aortic valve replacement): Comment: November 2023, 26 mm Evolut Code(s): Z95.2 - Presence of prosthetic heart valve Category: Surgical Plan: Status post transcatheter aortic valve replacement for severe aortic stenosis. Had complication with stroke, pericarditis as well as cardiac pacemaker required. She is currently doing well. No signs or symptoms of heart failure. Continue low-dose aspirin therapy for life. Continue aggressive vascular risk factor modification. SBE prophylaxis as per ACC/[place] guidelines. Follow-up echocardiogram in 6 months time. (2) Cardiac pacemaker in situ: Comment: Medtronic Code(s): Z95.0 - Presence of cardiac pacemaker Category: Medical Plan: Cardiac pacemaker in-situ for post TAVR bradycardia. Pacemaker is working well. Will follow remotely every 3 months. Follow up in the clinic in 6 months. (3) HTN (hypertension): Code(s): I10 - Essential (primary) hypertension Category: Medical Plan: High blood pressure, clinically currently well controlled on current therapy. Importance of good blood pressure control was discussed. Continue current therapy. Low-salt diet was discussed advised to monitor blood pressure at home maintain a log. Goal blood pressure less than 130/84. (4) CAD (coronary artery disease): Code(s): I25.10 - Atherosclerotic heart disease of [place] coronary artery without angina pectoris Category: Medical Plan: Nonobstructive CAD by cardiac catheterization. Continue low-dose aspirin therapy. Continue aggressive blood pressure control as well as statin therapy. Target goal LDL less than 70 mg/dL. Will follow up in the clinic in 6 months time, sooner p.r.n.. Thank you for allowing me to partake in his care Medications: Discontinued clopidogrel (Plavix) Discontinued Reason: Patient no longer taking 75 mg PO DAILY 90 tabs 1RF Coding Level of Care Code Est Pt Level 4 (62345) Diagnoses S/P TAVR (transcatheter aortic valve replacement) Z95.2 Cardiac pacemaker in situ Z95.0 HTN (hypertension) I10 CAD (coronary artery disease) I25.10 CPT Codes Cardiac Device Check - Cardiac Device 2: 07190-NA Cardiac Device Check, pacemaker dual lead ([id number])
[2024-07-29 10:07] VITALS: BP 118/74; PULSE 83; BMI 23.6
== END 2024-07-29 10:39 | disposition home or self-care (01) ==
PROVIDERS: PCP Internal Medicine; Visit Provider Internal Medicine Cardiovascular Disease
DX: Z95.2 Presence of prosthetic heart valve (principal); Z95.0 Presence of cardiac pacemaker; I10 Essential (primary) hypertension; I25.10 Atherosclerotic heart disease of native coronary artery without angina pectoris
CPT/HCPCS: 93280; 99214

== ENCOUNTER → 2024-07-29 09:50 | Outpatient (BNVA) | payer MEDICARE, OTHER, SELFPAY | PROVIDERS: PCP Internal Medicine; Visit Provider Internal Medicine Cardiovascular Disease | DX: I25.10 Atherosclerotic heart disease of native coronary artery without angina pectoris (principal); I10 Essential (primary) hypertension; Z95.2 Presence of prosthetic heart valve; Z95.0 Presence of cardiac pacemaker | CPT/HCPCS: 93280; 99212 ==

== ENCOUNTER 2024-08-06 07:55 | Day surgery (SDC) | payer MEDICARE, OTHER, SELFPAY ==
--- NOTE | 2024-08-04 15:10 | HO.ANESPROP2 ---
Documented by User: Josee Mata NP 08/04/24 15:14 HPI - Anesthesia Eval Consult details Narrative: 79yo F for Upper Endoscopy and Colonoscopy Follows [facility] [place]. Stable at 07/2024 office visit with 3 month f/u Status post transcatheter aortic valve replacement for severe aortic stenosis 11/2023. Had complication with stroke, pericarditis as well as cardiac pacemaker required. PMFSH Active Problems Active Problems: All Active Problems CAD (coronary artery disease) (Acute) S/P TAVR (transcatheter aortic valve replacement) (Acute) Cardiac pacemaker in situ (Acute) Colitis (Acute) Indigestion (Acute) HTN (hypertension) (Acute) Cellulitis (Acute) Past Medical History Medical History Pericarditis CAD (coronary artery disease) Aortic stenosis Cardiac pacemaker in situ HTN (hypertension) Family History Family History Father CVD (cardiovascular disease) Mother Diabetes Surgical History Surgical History H/O cardiac catheterization S/P TAVR (transcatheter aortic valve replacement) Hx of colonoscopy H/O tubal ligation History of hip surgery Social History Social History Household Members Other:: lives alone Are you a primary disabilities caregiver to a significant other at home: No Do you presently have visiting nurse or other home services: No Alcohol intake: current Alcohol intake frequency: 0-2 drinks per day Alcohol type: wine and hard liquor Patient Tobacco Use Status: Never used Tobacco Use of substances other than those prescribed or required for medical reasons: No Have you been hit, kicked, punched, or otherwise hurt by someone within the past year? If so, by whom?: No Are you DNR?: No Advance Directives: No Advance Directives Information Provided: Yes Recently lost weight without trying: No Nutrition Risks: No Nutritional Risk Meds Allergies Allergy/AdvReac Type Severity Reaction Status Date / Time lisinopril AdvReac Intermediate Cough Verified 12/10/23 11:51 bees Allergy Intermediate Rash Uncoded 06/23/23 09:53 Home Medications ?Medication ?Instructions ?Recorded ?Confirmed ?Last Taken ?Type aspirin 81 mg tablet,delayed 81 mg PO DAILY 02/01/21 07/29/24 08/04/24 History release (Adult Low Dose Aspirin) calcium carbonate (Calcium 500) 500 mg PO DAILY 08/03/22 07/29/24 Unknown History multivitamin (Daily Multi-Vitamin 1 tab PO DAILY 08/03/22 07/29/24 Unknown History tablet) pantoprazole 40 mg tablet,delayed 40 mg PO DAILY 02/01/23 07/29/24 08/06/24 07:00 History release Exam Pertinent Lab Results Pertinent Lab Results: Laboratory Tests 07/25/24 06:57 WBC 13.4 H Hgb 14.0 Hct 44.4 Plt Count 351 Sodium 140 Potassium 4.1 Chloride 106 Carbon Dioxide 25 BUN 14 Creatinine 0.78 Narrative Narrative: Cardiac Device Check 07/2024 Details: Dual-chamber Medtronic pacemaker in place programmed in MVP mode with rate response at 60 beats per minute. Atrial pacing 3% of the time. Patient is very active to about 6 hours a day. Two episodes of high ventricular rate consistent with SVT noted. Atrial ventricular sensing is excellent. Atrial ventricular pacing thresholds excellent and reprogrammed to enhance battery life. Pacing lead impedance is stable. Battery life is at 14.3 years ECHO 12/2023 Conclusions: - 1. Normal LV ejection fraction of 60-65% with impaired relaxation filling pattern 2. Normally function bioprosthetic aortic valve with mean gradient of 4 mmHg 3. Normal RV systolic pressure 4. No gross pericardial effusion Assessment and Plan Assessment Anesthesia Assessment: Chart Reviewed Documented by User: Shirin Soto MD 08/06/24 09:00 [facility] Past Medical History Medical History Pericarditis CAD (coronary artery disease) Aortic stenosis Cardiac pacemaker in situ HTN (hypertension) Family History Family History Father CVD (cardiovascular disease) Mother Diabetes Family history of problems with anesthesia: No Surgical History Surgical History H/O cardiac catheterization S/P TAVR (transcatheter aortic valve replacement) Hx of colonoscopy H/O tubal ligation History of hip surgery History of Problems with Anesthesia: No Social History Social History Household Members Other:: lives alone Are you a primary disabilities caregiver to a significant other at home: No Do you presently have visiting nurse or other home services: No Alcohol intake: current Alcohol intake frequency: 0-2 drinks per day Alcohol type: wine and hard liquor Patient Tobacco Use Status: Never used Tobacco Use of substances other than those prescribed or required for medical reasons: No Have you been hit, kicked, punched, or otherwise hurt by someone within the past year? If so, by whom?: No Are you DNR?: No Advance Directives: No Advance Directives Information Provided: Yes Recently lost weight without trying: No Nutrition Risks: No Nutritional Risk Meds Allergies Allergy/AdvReac Type Severity Reaction Status Date / Time lisinopril AdvReac Intermediate Cough Verified 12/10/23 11:51 bees Allergy Intermediate Rash Uncoded 04/27/23 09:53 Home Medications ?Medication ?Instructions ?Recorded ?Confirmed ?Last Taken ?Type aspirin 81 mg tablet,delayed 81 mg PO DAILY 02/01/21 07/29/24 08/04/24 History release (Adult Low Dose Aspirin) calcium carbonate (Calcium 500) 500 mg PO DAILY 08/03/22 07/29/24 Unknown History multivitamin (Daily Multi-Vitamin 1 tab PO DAILY 08/03/22 07/29/24 Unknown History tablet) pantoprazole 40 mg tablet,delayed 40 mg PO DAILY 02/01/23 07/29/24 08/06/24 07:00 History release Exam Airway Mallampati Class: II TM Dist: >3cm Neck ROM: Full Heart: rrr Lungs: cta Assessment and Plan Assessment Anesthesia Assessment: Anesthesia Plan Discussed Final Anesthetic Review Family History of Problems with Anesthesia: No History of Problems with Anesthesia: No NPO: Yes ASA Class: III Final Preanesthetic Review: No Changes in Pt Med Stat, Meds/Allgs Chart Reviewed, Consent Obtained/Reviewed and Anes Risks/Benef Reviewed Patient Risk: Intermediate Procedure Risk: Low Anesthetic Plan Anesthetic Plan: MAC: Disposition: Standard PACU
[2024-08-06 08:10] VITALS: BMI 25.1
[2024-08-06 08:19] VITALS: BMI 25.1
[2024-08-06 08:25] VITALS: BP 146/73; PULSE 80; RESP 16; TEMP 36.5; O2SAT 97
[2024-08-06] MEDS: Lactated Ringers 1,000 ML 100 ML IVCONT (08:41)
--- NOTE | 2024-08-06 09:20 | MHC.SHP ---
Pre-Procedural Eval Section A - 24 Hr Update-Section A only Date of Service: 08/06/24 Section B - Complete if H&P > 30 days Chief Complaint: Noninfective gastroenteritis and colitis, unspecif Relevant Family History (Specify if Yes): No Relevant Social History: None Present Medications: see Short Stay Collaborative assessment Medical History: Significant History (HTN (hypertension) Aortic stenosis) History of Previous Operations: Relevant previous surgery/procedure and date(s) (Hx of colonoscopy H/O tubal ligation History of hip surgery) Allergies: Allergies Allergy/AdvReac Type Severity Reaction Status Date / Time lisinopril AdvReac Intermediate Cough Verified 12/10/23 11:51 bees Allergy Intermediate Rash Uncoded 04/27/23 09:53 Review of Systems Sugical H&P ROS: Negative: Constitution, Cardiovascular, Respiratory, Neurological, Psychiatric, Hem-Onc, Allergic/Immunologic, Gastrointestinal, Genitourinary, Musculoskeletal, Integumentary, Endocrine and Eyes/Ears/Nose/Throat Exam Surgical H&P Exam: Normal: HEENT, Normal: Heart, Normal: Lungs, Normal: Extremities, Normal: Abdomen, Normal: Skin and Normal: Neurological Plan Diagnosis/Plan: Unchanged I have reviewed the history and physical and performed a pertinent physical examination on my patient. No changes have occurred unless specified. Time Spent With Patient Time: Total time managing care of this patient today ____ minutes.
--- NOTE | 2024-08-06 10:17 | P.OPN-COLO_ITS ---
Colonoscopy Operative Note Operative Note Date of Service: 08/06/24 Narrative: Operative Information Procedure Description: EGD, Colonoscopy Indication: regurgiation, concern for colitis on imaging Anesthesia: MAC FLEXIBLE TRANSORAL UPPER GASTROINTESTINAL ENDOSCOPY AND COLONOSCOPY PROCEDURE NOTE UPPER ENDOSCOPY Consent: Indications for the procedure and potential complications of bleeding, perforation, reaction to medications and missed diagnosis were discussed with the patient and informed consent was obtained. Instrument: Olympus GIF H 190 J mid size upper endoscope Monitoring: Vital signs and clinical assessment, continuous EKG monitoring, Pulse oximetry, Carbon Dioxide monitoring and blood pressure monitoring were done throughout the procedure. Procedure: The patient was placed in the left lateral decubitis position and pre-procedure medications were administered and a bite block was placed. The endoscope was inserted into the mouth and advanced under direct vision to the third part of duodenum. A careful inspection was made as the upper endoscope was withdrawn including a retroflexed examination of the proximal stomach; Findings and interventions are described below. Findings: Larynx:normal Esophagus: GE junction at 31 cm, diaphragm hiatus at 33 cm, mild erosive esophagitis noted, LA grade A, possible short segment charles,s bx taken from GEJ and sital esophagus, 2 cm sliding hiatal hernia Stomach: nodular mucosa. Biopsies were obtained. Grade 2 flap valve on retroflexed examination of the cardia. several fundic gland polyps noted, few were red and inflammed and removed with cold snare. Duodenum: Normal bulb and descending duodenum, bx taken Intervention: Biopsies as noted above, cold snare COLONOSCOPY Instrument: Olympus variable stiffness pediatric scope 190L Colonoscopy Monitoring: Vital signs and clinical assessment, continuous EKG monitoring, Pulse oximetry, Carbon Dioxide monitoring and blood pressure monitoring were done throughout the procedure. Colon withdrawal time was 19 minutes. Procedure: The patient was placed in the left lateral decubitis position and pre-procedure medications were administered. After a digital rectal examination of the ano-rectum, the video colonoscope was inserted into the rectum and advanced through the colon to the cecum/TI. The colonoscope was slowly withdrawn in a retrograde panoramic fashion and the colon mucosa was carefully examined including a retroflexed view of the rectum. Findings and interventions are described below. Procedure Difficulty:moderate Findings: Terminal Ileum-normal, bx taken random bx taken from right and left colon Cecum: 4-6 mm sessile polyp removed with cold snare Ascending Colon: normal Transverse Colon - 5-6 mm sessile polyp removed with cold snare Descending Colon: x 2 sessile polyps 6-8 mm removed with cold snare Sigmoid Colon: normal Rectum: Retroflexion with small internal hemorrhoids, grade I Anorectum - normal Colon preparation: [place] Bowel Preparation Scale Right colon; 1-2 Transverse colon: 2 Left colon; 2 (0 = Unprepared colon segment with mucosa not seen due to solid stool that cannot be cleared. 1 = Portion of mucosa of the colon segment seen, but other areas of the colon segment not well seen due to staining, residual stool and/or opaque liquid. 2 = Minor amount of residual staining, small fragments of stool and/or opaque liquid, but mucosa of colon segment seen well. 3 = Entire mucosa of colon segment seen well with no residual staining, small fragments of stool or opaque liquid) Impression and Post Procedure Diagnosis: Endoscopy Findings: hiatal hernia gastritis fundic gland polyps hiatal hernia erosive esophagitis Colonoscopy Findings: colon polyps internal hemorrhoids Plan: Await Pathology results Repeat Colonoscopy in 1-2 years due to areas of pair prep on right and polyps or earlier if clinically indicated High fiber diet leaflet avoid straining at stool, epsom salts and sitz bath, anusol supps or cream if h pylori pos then treat Above findings were reviewed with the patient and relevant handouts were provided if indicated.
[2024-08-06 10:22] VITALS: BP 119/69; PULSE 72; RESP 18; TEMP 36.1; O2SAT 96
[2024-08-06 10:37] VITALS: BP 131/59; PULSE 70; RESP 17; TEMP 36.7; O2SAT 97
== END 2024-08-06 11:14 | disposition home or self-care (01) ==
PROVIDERS: PCP Internal Medicine; Visit Provider Internal Medicine Gastroenterology
PROC: (CPT 45385; principal; 2024-08-06 09:00)
DX: K52.9 Noninfective gastroenteritis and colitis, unspecified (principal); D12.0 Benign neoplasm of cecum; D12.3 Benign neoplasm of transverse colon; D12.4 Benign neoplasm of descending colon; K64.0 First degree hemorrhoids; K30 Functional dyspepsia; K21.9 Gastro-esophageal reflux disease without esophagitis; K29.70 Gastritis, unspecified, without bleeding; K31.7 Polyp of stomach and duodenum; K44.9 Diaphragmatic hernia without obstruction or gangrene; I10 Essential (primary) hypertension; I25.10 Atherosclerotic heart disease of native coronary artery without angina pectoris; I31.9 Disease of pericardium, unspecified; Z95.0 Presence of cardiac pacemaker; Z95.2 Presence of prosthetic heart valve; Z79.82 Long term (current) use of aspirin; Z79.899 Other long term (current) drug therapy; Z88.8 Allergy status to other drugs, medicaments and biological substances; Z98.890 Other specified postprocedural states
CPT/HCPCS: 45385; 45380; 43251; 43239; 88305; 88313; 88342; J2003; J2704

== ENCOUNTER → 2024-08-06 07:55 | Outpatient (BNV) | payer MEDICARE, OTHER, SELFPAY | PROVIDERS: PCP Internal Medicine; Visit Provider Internal Medicine Gastroenterology | DX: R11.10 Vomiting, unspecified (principal); K31.7 Polyp of stomach and duodenum; K20.90 Esophagitis, unspecified without bleeding; R93.3 Abnormal findings on diagnostic imaging of other parts of digestive tract; D12.3 Benign neoplasm of transverse colon; D12.0 Benign neoplasm of cecum; D12.4 Benign neoplasm of descending colon; K64.0 First degree hemorrhoids | CPT/HCPCS: 43239; 43251; 45380; 45385 ==

== ENCOUNTER 2024-08-21 08:06 | Outpatient (REF) | payer MEDICARE, OTHER, SELFPAY ==
[2024-08-22 20:59] LABS: Transglutaminase Ab IgG <1.0 U/mL; Transglutaminase IgA <1.0 U/mL
== END 2024-08-21 08:07 | disposition home or self-care (01) ==
LOC: HO.LAB 08:06
PROVIDERS: PCP Internal Medicine; Visit Provider Internal Medicine Gastroenterology
DX: R10.33 Periumbilical pain (principal); G89.29 Other chronic pain; K52.9 Noninfective gastroenteritis and colitis, unspecified; K30 Functional dyspepsia
CPT/HCPCS: 36415; 86364

== ENCOUNTER 2024-08-22 11:45 | Outpatient (AMB) | payer MEDICARE, OTHER, SELFPAY ==
--- NOTE | 2024-08-22 11:51 | MHC.OFFVIS ---
Vital Signs 08/22/24 11:53 Height 4 ft 10 in Weight 119 lb 0.794 oz BMI 24.9 Blood Pressure Location Lt brachial Position Sitting Intake Visit Reasons: DOUBLE Intake Note: Richa presents in the office as a follow up EGD and COLO. CC: She is here for results and she just did blood work yesterday. Migration Specialist Required: No Allergies lisinopril Adverse Reaction (Intermediate, Verified 08/22/24 11:53) Cough bees Allergy (Intermediate, Uncoded 08/22/24 11:53) Rash HPI HPI DOUBLE: Details: 78 yr old patient being seen for follow up for indigestion RECAP: She had been having issues with indigestion for a long time she denies nausea or vomiting she denies dysphagia she has soem regurgitation usu 2 hrs after she eats trying to cut back on wine and chocolate and her portions she has bloating and gas she generally doesnt feel well she is doing less than she normally does she feels she has a lot fo stress in life she has looser type of stools in the morning, for a while no blood in stools she feels hungry all the time she has had x 3 colonoscopy in the past at [facility] --normal per her but did have hx of polyps She had TAVR procedure done recently she had CT with ?colitis noted after surgery possibly due to underdistention EGD/COLO 08/06/24 Endoscopy Findings: hiatal hernia gastritis fundic gland polyps hiatal hernia erosive esophagitis Colonoscopy Findings: colon polyps internal hemorrhoids path: adenomatous polyps, white cells duodenum, fundic gland INTERIM: reviewed results of tests today had to stop PPI for above findings and awaiting celiac panel and H pylori testing she has good appetite no constipation no blood in stool no nausea or vomiting EXAM: GENERAL: The patient is well developed and nontoxic. VITAL SIGNS:see workflow HEENT: Nonicteric sclerae, PERRLA, EOMI. Oropharynx clear. Moist mucous membranes. Conjunctivae appear well perfused. No thyroid mass. CHEST: Chest wall is tender, scar noted left upper chest area HEART: Regular rate and rhythm LUNGS: Clear to auscultation bilaterally. ABDOMEN: Soft, positive bowel sounds, nontender, no organomegaly.no flank tenderness SKIN: No rash, no excessive bruising, petechiae, or purpura. NEUROLOGIC: Cranial nerves II-XII intact without motor/sensory deficit. A/P: 1/ colon polyps, adenomatous 2/ esophagitis and IEL on bx duodenum Plan: 1/ await celiac serology 2/ H pylori testing 3/ repeat colo in 1-2 yrs due to prep [facility] Medical History Pericarditis CAD (coronary artery disease) Aortic stenosis Cardiac pacemaker in situ HTN (hypertension) Surgical History H/O cardiac catheterization S/P TAVR (transcatheter aortic valve replacement) Hx of colonoscopy H/O tubal ligation History of hip surgery Family History Father CVD (cardiovascular disease) Mother Diabetes Social History Household Members Other:: lives alone Are you a primary patient care director to a significant other at home: No Do you presently have visiting nurse or other home services: No Alcohol intake: current Alcohol intake frequency: 0-2 drinks per day Alcohol type: wine and hard liquor Patient Tobacco Use Status: Never used Tobacco Physical Exam Vital Signs: BMI result Body Mass Index 24.9 Assessment & Plan Assessment & Plan (1) Indigestion: Code(s): K30 - Functional dyspepsia Category: Medical Plan: see above Coding Level of Care Code Est Pt Level 3 (80020) Diagnoses Indigestion K30
[2024-08-22 11:53] VITALS: BMI 24.9
== END 2024-08-22 12:57 | disposition home or self-care (01) ==
PROVIDERS: PCP Internal Medicine; Visit Provider Internal Medicine Gastroenterology
DX: K30 Functional dyspepsia (principal)
CPT/HCPCS: 99213

== ENCOUNTER → 2024-08-22 11:45 | Outpatient (BNVA) | payer MEDICARE, OTHER, SELFPAY | PROVIDERS: PCP Internal Medicine; Visit Provider Internal Medicine Gastroenterology | DX: K30 Functional dyspepsia (principal) | CPT/HCPCS: 99212 ==

== ENCOUNTER 2024-09-03 08:59 | Outpatient (REF) | payer MEDICARE, OTHER, SELFPAY ==
--- NOTE | ~2024-09-03 | MM_ITS ---
EXAMINATION: BONE DENSITOMETRY CLINICAL INDICATION: Postmenopausal. Estrogen deficiency. COMPARISON: Previous BD dated 11/21/2020 and baseline BD dated 09/14/2006. TECHNIQUE: Using a [employer] DXA System (software version: 13.1) manufactured by [employer], dual-energy x-ray absorptiometry was performed of the lumbar spine and left hip. The images are of good technical quality. Summary results are attached. FINDINGS: LEFT FEMUR, NECK: Current: BMD 0.673 g/cm2, Z-score -0.3, T-score -2.6, osteoporosis. Prior: BMD 0.719 g/cm2. Baseline: BMD 0.799 g/cm2. LEFT FEMUR, TOTAL: Current: BMD 0.853 g/cm2, Z-score 1.0, T-score -1.2, osteopenia, 3.9% decrease from previous, 9.4% decrease from baseline (<5% change is not significant). Prior: BMD 0.888 g/cm2. Baseline: BMD 0.941 g/cm2. AP SPINE L1-L3 (excluding L4): The data of L1-L4 has been changed to exclude the L4 vertebral body, because at this level may cause overestimation of lumbar spine density. Current: BMD 1.152 g/cm2, Z-score 2.0, T-score -0.2, normal, 0.2% increase from previous, 8.6% increase from baseline (<5% change is not significant). Prior: BMD 1.150 g/cm2. Baseline: BMD 1.061 g/cm2. IDENTIFIED RISK FACTORS: Height loss, history of fracture (adult), hysterectomy, menopause. HISTORY OF FRACTURE: Hip, other. MEDICATIONS: Calcium/multivitamin. MM/XR DEXA axial skeleton IMPRESSION: 1. DIAGNOSIS: Severe osteoporosis based on the lowest T-score value of -2.6 in the femoral neck, and the history of a hip fracture, applying World Health Organization criteria. 2. 10-YEAR FRACTURE RISK PREDICTION, FRAX: According to the guidelines, FRAX calculation should only be performed on patients in the osteopenia bone density category. Therefore, FRAX was not performed on this patient. 3. Treatment Recommendations: NOF guidelines recommend consideration for treatment in postmenopausal women and men age 50 and older presenting with the following: -A hip or vertebral (clinical or morphometric) fracture. -T-score less than or equal to -2.5 at the femoral neck or spine after appropriate evaluation to exclude secondary causes. -Low bone mass at the hip or spine and a 10-year fracture probability by FRAX of greater than or equal to 3% for hip fracture or greater than or equal to 20% for major osteoporotic fracture based on the [place] adapted WHO algorithm. 4. Other Recommendations: All treatment decisions require clinical judgment and consideration of individual patient factors, including patient preferences, comorbidities, previous drug use, risk factors not captured in the FRAX model (e.g. frailty, falls, vitamin D deficiency, increased bone turnover, interval significant decline in bone density) and possible under or overestimation of fracture risk by FRAX. Additional medical evaluation for secondary cause of low bone mineral density may be appropriate. FUTURE SCAN RECOMMENDATION: People with diagnosed cases of osteoporosis or at high risk for fracture should have regular bone mineral density tests. For patients eligible for Medicare, routine testing is allowed once every 2 years. The testing frequency can be increased to one year for patients who have rapidly progressing disease, those who are receiving or discontinuing medical therapy to restore bone mass, or have additional risk factors. Electronically signed by: Abby Lawrence MD 09/04/2024 09:02 AM EDT RP
[2024-09-05 15:10] LABS: H Pylori Breath Test Negative (Negative)
== END 2024-09-03 09:00 | disposition home or self-care (01) ==
LOC: HO.MAMMO 08:59
PROVIDERS: Internal Medicine Gastroenterology; PCP Internal Medicine; Visit Provider Internal Medicine
DX: Z13.820 Encounter for screening for osteoporosis (principal); K30 Functional dyspepsia; K52.9 Noninfective gastroenteritis and colitis, unspecified; Z78.0 Asymptomatic menopausal state
CPT/HCPCS: 77080; 83013

== ENCOUNTER 2024-11-13 22:22 | Emergency (ER) | payer MEDICARE, OTHER, SELFPAY ==
[2024-11-13 22:23] VITALS: BP 137/82; PULSE 113; RESP 20; TEMP 36.4; O2SAT 99; BMI 23.4
[2024-11-13 22:50] LABS: MANUAL DIFF FLAG NO
[2024-11-13 22:51] LABS: Basophils Percent Auto 0.5 % (0-2); Eosinophils Absolute Auto 0.2 X10*3/uL (0.0-0.4); Eosinophils Percent Auto 2.8 % (0-4); Hematocrit 46.9 % (37.0-47.0); Hemoglobin 15.7 g/dl (12.0-16.0); Imm Gran Abs Auto 0.04 X10*3/uL (0.00-0.03); Imm Gran Pct Auto 0.5 % (0.0-0.4); Lymphocytes Absolute Auto 2.9 X10*3/uL (1.2-4.9); Lymphocytes Percent Auto 37.7 % (20-40); Mean Corpuscular HGB Conc 33.5 g/dl (31.0-35.0); Mean Corpuscular Hemoglobin 26.1 pg (27.0-33.0); Mean Corpuscular Volume 77.9 fL (80.0-98.0); Mean Platelet Volume 9.6 fL (9.4-12.3); Monocytes Absolute Auto 0.8 X10*3/uL (0.1-1.2); Monocytes Percent Auto 9.8 % (2-11); Neutrophils Absolute Auto 3.7 x10*3/uL (2.0-8.3); Neutrophils Percent Auto 48.7 % (45-73); Platelet Count 330 X10*3/uL (160-400); Red Blood Count 6.02 X10*6/uL (4.20-5.50); Red Cell Distribution Width 15.1 % (11.0-16.0); White Blood Count 7.6 X10*3/uL (4.8-10.8)
[2024-11-13 23:04] LABS: Alanine Aminotransferase 16 U/L (0-31); Albumin Level 4.4 g/dL (3.5-5.0); Alkaline Phosphatase 87 U/L (39-117); Anion Gap 13 (12-20); Aspartate Amino Transferase 29 U/L (5-31); Bilirubin Total 0.3 mg/dL (0.0-1.0); Blood Urea Nitrogen 20 mg/dL (9-16); Calcium 9.5 mg/dL (8.4-10.2); Carbon Dioxide 21 mmol/L (22-29); Chloride 108 mmol/L (96-108); Creatinine Clr Calc Pharmacy 45.6; Estimated Glomerular Filt Rate > 60; Glucose Random 138 mg/dL (60-115); Lipase 31 U/L (8-78); Potassium 4.1 mmol/L (3.3-5.1); Sodium 138 mmol/L (135-145); Total Protein 7.3 g/dL (6.5-8.0)
[2024-11-13 23:37] LABS: Erythrocyte Sedimentation Rate 2 MM/HR (0-20)
--- NOTE | 2024-11-14 01:43 | ED_ITS ---
HPI - Allergic Reaction General Chief complaint: Allergic Reaction Stated complaint: ?allergic reaction Time Seen by Provider: 11/14/24 01:19 Source: patient Mode of arrival: ambulatory Limitations: no limitations History of Present Illness ED Provider: HPI narrative: Patient complaining of itching of the palm in the feet for last few hours history of same in the past unknown allergic no oral lesion no hives no lesions in the COVID chest total hungry patient took Benadryl prior to arrival Related Data Home Medications ?Medication ?Instructions ?Recorded ?Confirmed aspirin 81 mg tablet,delayed 81 mg PO DAILY 02/01/21 07/29/24 release (Adult Low Dose Aspirin) calcium carbonate (Calcium 500) 500 mg PO DAILY 08/03/22 07/29/24 multivitamin (Daily Multi-Vitamin 1 tab PO DAILY 08/03/22 07/29/24 tablet) pantoprazole 40 mg tablet,delayed 40 mg PO DAILY 02/01/23 07/29/24 release betamethasone dipropionate 0.05 % 1 appl topical BID 08/22/24 topical cream Previous Rx's ?Medication ?Instructions ?Recorded losartan 50 mg tablet 50 mg PO BID #60 tabs 02/01/23 atorvastatin 10 mg tablet 10 mg PO DAILY 90 days #90 tabs 10/23/23 diphenhydramine HCl 25 mg capsule 25 mg PO TID PRN itching #20 caps 11/14/24 (Benadryl) Allergies Allergy/AdvReac Type Severity Reaction Status Date / Time lisinopril AdvReac Intermediate Cough Verified 11/13/24 22:26 bees Allergy Intermediate Rash Uncoded 08/22/24 11:53 Review of Systems 2 Review of Systems: Yes all other systems are reviewed and are negative PMFSH Past Medical History Medical History Pericarditis CAD (coronary artery disease) Aortic stenosis Cardiac pacemaker in situ HTN (hypertension) Surgical History H/O cardiac catheterization S/P TAVR (transcatheter aortic valve replacement) Hx of colonoscopy H/O tubal ligation History of hip surgery Family History Family History Father CVD (cardiovascular disease) Mother Diabetes Social History Social History Household Members Other:: lives alone Are you a primary property caretaker to a significant other at home: No Do you presently have visiting nurse or other home services: No Alcohol intake: current Alcohol intake frequency: 0-2 drinks per day Alcohol type: wine and hard liquor Patient Tobacco Use Status: Never used Tobacco Advance Directives: Yes Advance Directives on File: No Do you have a plan to hurt others: No Plan Physical Exam ED Vital Signs: Vital Signs - 24 hr 11/13/24 22:23 Temperature 97.6 F Pulse Rate 113 H Respiratory Rate 20 Blood Pressure 137/82 Pulse Oximetry 99 Oxygen Delivery Method Room Air BMI result Body Mass Index 23.4 Appearance: Alert. Oriented X3. No acute distress. Eyes: PERRLA, No Nystagmus ENT: Pharynx normal. Oral Mucosa moist Neck: Normal inspection. Neck supple. CVS: Normal heart rate and rhythm. Pulses normal. Respiratory: No respiratory distress. Equal air entry bilateral, no wheezing/rales/rhonchi Abdomen: Soft and nontender. Bowel sounds are present, no mass palpable, no CVA tenderness Skin: Skin warm and dry. Erythematous rash on the palmar aspect of hands Extremities: No lower extremity edema. No calf tenderness Neuro: Oriented X 3. No motor deficit. Medications Administered Discontinued Medications Generic Name Dose Route Start Last Admin Trade Name Freq PRN Reason Stop Dose Admin Dexamethasone 10 mg 11/14/24 01:43 11/14/24 02:06 Dexamethasone 2 Mg Tablet PO 11/14/24 01:44 10 mg ONCE ONE Administration Medical Decision Making Medical Decision Making [facility] Narrative: Patient nonspecific allergic reaction etiology not clear will give a dose of Decadron in the advised to continue Benadryl follow with PCP Lab Data MDM Lab Attestation statement: I reviewed the patient's lab results. 11/13/24 22:43 11/13/24 22:43 Labs: Lab Results 11/13/24 Range/Units 22:43 WBC 7.6 (4.8-10.8) X10*3/uL RBC 6.02 H (4.20-5.50) X10*6/uL Hgb 15.7 (12.0-16.0) g/dl Hct 46.9 (37.0-47.0) % MCV 77.9 L (80.0-98.0) fL MCH 26.1 L (27.0-33.0) pg MCHC 33.5 (31.0-35.0) g/dl RDW 15.1 (11.0-16.0) % Plt Count 330 (160-400) X10*3/uL MPV 9.6 (9.4-12.3) fL Immature Gran % (Auto) 0.5 H (0.0-0.4) % Neut % (Auto) 48.7 (45-73) % Lymph % (Auto) 37.7 (20-40) % [place] % (Auto) 9.8 (2-11) % Eos % (Auto) 2.8 (0-4) % Baso % (Auto) 0.5 (0-2) % Lymph # (Auto) 2.9 (1.2-4.9) X10*3/uL [place] # (Auto) 0.8 (0.1-1.2) X10*3/uL Eos # (Auto) 0.2 (0.0-0.4) X10*3/uL Baso # (Auto) 0.0 (0.0-0.2) X10*3/uL Abs Immat Gran (auto) 0.04 H (0.00-0.03) X10*3/uL Absolute Neuts (auto) 3.7 (2.0-8.3) x10*3/uL Absolute Nucleated RBC 0.000 (0.0-0.012) X10*3/uL Nucleated RBC % (auto) 0.0 (0.0-0.2) /100WBC ESR 2 (0-20) MM/HR Sodium 138 (135-145) mmol/L Potassium 4.1 (3.3-5.1) mmol/L Chloride 108 (96-108) mmol/L Carbon Dioxide 21 L (22-29) mmol/L Anion Gap 13 (12-20) BUN 20 H (9-16) mg/dL Creatinine 0.73 (0.5-1.4) mg/dL Estim Creat Clear Calc 45.6 Estimated GFR > 60 Random Glucose 138 H (60-115) mg/dL Calcium 9.5 D (8.4-10.2) mg/dL Total Bilirubin 0.3 (0.0-1.0) mg/dL AST 29 (5-31) U/L ALT 16 (0-31) U/L Alkaline Phosphatase 87 (39-117) U/L C-Reactive Protein 0.10 (< or = 0.50) mg/dL Total Protein 7.3 (6.5-8.0) g/dL Albumin 4.4 (3.5-5.0) g/dL Lipase 31 (8-78) U/L Discharge Plan Discharge Clinical Impression: Allergic reaction Patient Disposition: Home, Self-Care Instructions: General Allergic Reaction (ED) Additional Instructions: Continue Benadryl 1-2 tablets every 6 hours as needed for itching Report to ER if rash gets worse Follow up with your PCP Prescriptions: New diphenhydramine HCl [Benadryl] 25 mg capsule 25 mg PO TID PRN (Reason: itching) Qty: 20 0RF No Action aspirin [Adult Low Dose Aspirin] 81 mg tablet,delayed release (DR/EC) 81 mg PO DAILY calcium carbonate [Calcium 500] 500 mg calcium (1,250 mg) tablet,chewable 500 mg PO DAILY multivitamin [Daily Multi-Vitamin] Tablet 1 tab PO DAILY pantoprazole 40 mg tablet,delayed release (DR/EC) 40 mg PO DAILY losartan 50 mg tablet 50 mg PO BID Qty: 60 5RF atorvastatin 10 mg tablet 10 mg PO DAILY 90 Days Qty: 90 1RF betamethasone dipropionate 0.05 % cream 1 appl topical BID Interventions: ED Discharge Assessment Last Done: 11/14/24 02:14 Discharge Date/Time: 11/14/24 02:16 Print Language: [place]
[2024-11-14 02:05] VITALS: BP 135/78; PULSE 90; RESP 15; TEMP 36.2; O2SAT 95
[2024-11-14] MEDS: dexAMETHasone 2 MG TABLET 10 MG PO (02:06)
[2024-11-14 02:14] VITALS: BP 135/78; PULSE 90; RESP 15; TEMP 36.2; O2SAT 95
== END 2024-11-14 02:16 | disposition home or self-care (01) ==
PROVIDERS: Emergency Provider Internal Medicine; PCP Internal Medicine
DX: L29.9 Pruritus, unspecified (principal); I25.10 Atherosclerotic heart disease of native coronary artery without angina pectoris; I10 Essential (primary) hypertension; Z79.899 Other long term (current) drug therapy
CPT/HCPCS: 36415; 80053; 83690; 85025; 85652; 86140; 99283; J8540

== ENCOUNTER → 2024-11-20 12:41 | Outpatient (REF) | payer MEDICARE, OTHER, SELFPAY ==
--- NOTE | 2024-11-20 12:44 | CA_ITS ---
Transthoracic Echocardiogram Patient (Last, First, Middle): Richa Smith, Gender: Female Date of : 1945 Age: 79 Procedure Date: 11/20/2024 Procedure Type: Transthoracic Echocardiogram Location: OP Height: 147.32 cm Weight: 54.43 kg BSA: 1.47 m2 Heart Rate: bpm BP: 118 / 70 mmHg Drier Attendant: TO Referring MD: LEWIS Supervisor Rod Placing: Antoine Resendez MD Symptoms: S/P TAVR Study Quality: Fair, contrast ECG Rhythm: Sinus Conclusions: - 1. Normal LV ejection fraction of 60-65% with grade 1 diastolic dysfunction 2. Normally function bioprosthetic aortic valve with mean gradient of 4 mm Hg 3. Normal RV systolic pressure 4. No gross pericardial effusion Findings Procedure Information Contrast agent, definity, is being given per protocol without apparent complications. Left Ventricle Normal left ventricular size, thickness, and systolic function. The visually estimated ejection fraction is between 60-65%. Spectral Doppler is indicative of an impaired relaxation filling pattern. E/E prime ratio is <8, consistent with normal filling pressures. Evidence suggests grade I (mild) diastolic dysfunction. There is mild septal asymmetric hypertrophy. Right Ventricle Normal right ventricular cavity size and systolic function. There is a pacemaker wire seen in the right ventricle. Atria The left atrium is mildly dilated. There is no evidence of interatrial shunt. The right atrium is normal in size. A pacemaker wire is identified in the right atrium. Aortic Valve A bioprosthetic aortic valve is present. The prosthetic aortic valve appears to be functioning normally. The mean gradient is 4 mmHg. Mitral Valve There is mild anterior and posterior mitral leaflet thickening. There is mild mitral annular calcification. There is trace mitral valve regurgitation. There is no mitral valve stenosis. Pulmonic Valve The pulmonic valve was not well visualized. Tricuspid Valve Likely normal tricuspid valve structure and function. There is trace tricuspid valve regurgitation. The right ventricular systolic pressure is normal. The right ventricular systolic pressure is 22 mmHg. Normal right atrial pressure. There is no evidence of pulmonary hypertension. Great Vessels All visible segments of the aorta are normal in size. The pulmonary artery was not well visualized. There is no dilatation of the ascending aorta measuring 2.90 cm. Venous The inferior vena cava is normal in size and collapses greater than 50% with inspiration. Pericardium/Pleural There is no evidence of pericardial effusion. Prior Study Comparison No significant change compared to prior study dated: 12/27/2023. Measurements 2D Linear Measurements IVSd: 1.24 0.6-0.9/0.6-1.0 cm LVIDd: 2.92 3.9-5.3/4.2-5.9 cm LVIDd Index: 1.99 2.4-3.2/2.2-3.1 cm/m2 LVIDs: 2.21 2.0-3.6 cm LVPWd: 0.67 0.7-1.1 cm LA Diam: 2.90 2.7-3.8/3.0-4.0 cm LAIDs Index: 1.97 1.5-2.3 cm/m2 LV Mass: 91.58 67-162/88-224 g LV Mass Index: 62.30 43-95/49-115 g/m2 LVOT Diam: 1.90 3.0+(-)1.3 cm 2D Systolic Function EF 4C: 64.20 >55% EF 2C: 61.70 >55% EF BiP: 64.50 >55% Mitral Valve MV VTI: 0.22 MV Pk Yonas: 1.28 MV Mn Yonas: 0.83 MV Pk Grad: 7.00 MV Mn Grad: 3.00 MV Pk E: 0.50 MV PK A: 0.88 MV Decel Time: 120.00 E/A: 0.60 E'Lateral: 5.55 E'Medial: 4.24 E/E' Med: 11.80 E/E' Lat: 9.00 PHT: 35.00 MVA PHT: 6.29 MVA Continuity: 1.91 Decel Gem: 4.16 Aortic Valve AoV Pk Yonas: 1.33 AoV Mn Yonas: 0.92 AoV VTI: 0.25 AoV Pk Grad: 7.00 Aov Mn Grad: 4.00 GENEVA Cont.VTI: 1.77 LVOT LVOT Pk Yonas: 0.84 LVOT Mn Yonas: 0.58 LVOT VTI: 0.15 LVOT Pk Grad: 3.00 LVOT Mn Grad: 2.00 LVOT Diam: 1.90 LVOT Area: 2.84 Diastolic Function MV Pk E: 0.50 MV Pk A: 0.88 E/A: 0.60 E'Medial: 4.24 E/E' Med: 11.80 E' Laterial: 5.55 E/E' Lat: 9.00 Right Ventricle TAPSE (mm): 20.80 TVS' Yonas: 11.30 Tricuspid Valve TR Pk Yonas: 2.16 TR Pk Grad: 19.00 RA Press: 3.00 RVSP: 22.00 Great Vessels Aorta Ao Asc: 2.90 2.1-3.4 cm Updated in Other Vendor System with Status of Final Antoine Resendez MD electronically signed on 11/21/2024 5:29:55 PM with status of Final
== END ==
LOC: HO.CARD 12:41
PROVIDERS: PCP Internal Medicine; Referring Provider Internal Medicine Cardiovascular Disease; Visit Provider Internal Medicine Cardiovascular Disease
DX: Z95.2 Presence of prosthetic heart valve (principal)
CPT/HCPCS: 93306; Q9957

== ENCOUNTER → 2024-11-20 12:44 | Outpatient (BNV) | payer MEDICARE, OTHER, SELFPAY | PROVIDERS: PCP Internal Medicine; Referring Provider Internal Medicine Cardiovascular Disease; Visit Provider Internal Medicine Cardiovascular Disease | DX: I42.2 Other hypertrophic cardiomyopathy (principal); Z95.3 Presence of xenogenic heart valve | CPT/HCPCS: 93306 ==

== ENCOUNTER 2025-01-13 10:59 | Outpatient (AMB) | payer MEDICARE, OTHER, SELFPAY ==
[2025-01-13 11:03] VITALS: BP 120/80; PULSE 84; BMI 25.3
--- NOTE | 2025-01-13 11:03 | A.OFFVIS_ITS ---
Vital Signs 01/13/25 11:03 Height 4 ft 10 in Weight 121 lb 4.068 oz BMI 25.3 BP 120/80 Blood Pressure Location Lt brachial Position Sitting Pulse 84 Intake Visit Reasons: 6 mth f/up w/ medtronic ck Intake Note: 6 month follow-up with ekg and medtronic Allergies lisinopril Adverse Reaction (Intermediate, Verified 11/13/24 22:26) Cough bees Allergy (Intermediate, Uncoded 08/22/24 11:53) Rash Medication List - Last Reconciled 01/13/25 by Antoine Resendez MD aspirin (Adult Low Dose Aspirin) 81 mg PO DAILY atorvastatin 10 mg PO DAILY 90 days betamethasone dipropionate 0.05% 1 appl topical BID calcium carbonate (Calcium 500) 500 mg PO DAILY diphenhydramine HCl (Benadryl) 25 mg PO TID PRN losartan 50 mg PO BID multivitamin (Daily Multi-Vitamin tablet) 1 tab PO DAILY pantoprazole 40 mg PO DAILY HPI Comments Details: Marisela comes for follow-up. Overall from cardiac perspective she has been doing well. She has been remaining active. Denies any exertional chest pain or shortness of breath. No significant prolonged palpitation irregular heartbeat. No lightheadedness, syncope. She is planned to undergo total shoulder replacement surgery in near future. She is taking all her medications without any issues [facility] Medical History Pericarditis CAD (coronary artery disease) Aortic stenosis Cardiac pacemaker in situ HTN (hypertension) Surgical History H/O cardiac catheterization S/P TAVR (transcatheter aortic valve replacement) Hx of colonoscopy H/O tubal ligation History of hip surgery Family History Father CVD (cardiovascular disease) Mother Diabetes Social History Household Members Other:: lives alone Are you a primary acute care physical therapist to a significant other at home: No Do you presently have visiting nurse or other home services: No Alcohol intake: current Alcohol intake frequency: 0-2 drinks per day Alcohol type: wine and hard liquor Patient Tobacco Use Status: Never used Tobacco Review of Systems Const Denies chills, Denies fatigue, Denies fever(s), Denies frequent falls, Denies weakness, Denies weight gain and Denies weight loss ENT Denies dizziness Card Denies chest pain, Denies leg edema, Denies lightheadedness, Denies palpitations, Denies dyspnea, Denies dyspnea on exertion, Denies orthopnea and Denies other (loss of consciousness) Resp Denies cough, Denies dyspnea and Denies dyspnea on exertion GI Denies hematochezia and Denies change in stool character Musc Denies abnormal gait, Denies muscle weakness, Denies numbness, Denies radiating pain into limb and Denies tingling Neuro Denies abnormal gait, Denies dizziness, Denies frequent falls, Denies numbness, Denies tingling and Denies weakness Endo Denies fatigue and Denies palpitations Physical Exam Vital Signs: Last Vital Signs Pulse 84 01/13/25 11:03 BP 120/80 01/13/25 11:03 BMI result Body Mass Index 25.3 Const General: cooperative, comfortable, no acute distress, alert, awake, anxious and well groomed Nutritional Appearance: average body habitus Orientation/consciousness: patient oriented x3 Limitations: no limitations Neck Neck: Yes trachea midline, Yes supple and Yes no JVD Resp Effort & Inspection: normal respiratory effort Auscultation: clear to auscultation bilaterally Cardio Jugular venous distension: no JVD Palpation: normal PMI Rate: regular rate Rhythm: regular rhythm Heart sounds: S1 normal heart sound present, S2 normal heart sound present, no click, no gallops and Murmur heart sound present systolic early GI Auscultation: normal bowel sounds Skin General skin exam: no rashes or lesions noted Neuro General: patient oriented x3 and no focal motor deficits Extrem General: Yes no clubbing, cyanosis or edema Psych Appearance: grossly normal Affect: Anxious affect present Office Procedures Cardiac Device Check Cardiac Device Check Details: Dual-chamber Medtronic pacemaker in place. Programmed in MVP mode with rate response at 60 beats per minute. Battery life is excellent about 14 years. Atrial ventricular sensing is adequate. Atrial pacing thresholds elevated but unchanged and reprogrammed with adequate safety margin. RV pacing thresholds adequate and reprogrammed to enhance battery life. Few high ventricular rate episodes noted which could represent sinus tachycardia or SVT. No evidence of atrial fibrillation or ventricular tachycardia. [id number] Cardiac Device Check, pacemaker dual lead Procedure code (CPT) selection complete EKG Details: EKG shows normal sinus rhythm with poor R-wave progression with incomplete left bundle-branch block with diffuse ST T wave in changes suggestive of repolarization abnormality [id number], Complete Assessment & Plan Assessment & Plan (1) CAD (coronary artery disease): Code(s): I25.10 - Atherosclerotic heart disease of [place] coronary artery without angina pectoris Category: Medical Plan: Coronary artery disease, nonobstructive without any new symptoms at current point time. Continue aggressive medical therapy including low-dose aspirin therapy. Aggressive lipid modification goal LDL less than 70 mg/dL. Continue aggressive blood pressure control which is currently well optimized. Encouraged to maintain activity level as tolerated. Advised to call me with any new symptoms. (2) S/P TAVR (transcatheter aortic valve replacement): Comment: November 2023, 26 mm [employer] Code(s): Z95.2 - Presence of prosthetic heart valve Category: Surgical Plan: Status post transcatheter aortic valve replacement for severe aortic stenosis. Clinically doing extremely well. Symptoms have improved significantly she was not having any symptoms of exertional shortness of breath or any limitations. Continue aggressive vascular risk factor modifications above. Low-dose aspirin therapy for life. SBE prophylaxis as per ACC/[place] guidelines. Follow-up echocardiogram in 1 year's time. (3) Cardiac pacemaker in situ: Comment: [employer] Code(s): Z95.0 - Presence of cardiac pacemaker Category: Medical Plan: Cardiac pacemaker in-situ implanted post TAVR due to advanced AV block. Not much dependent on the pacemaker at this point time. Pacemaker is working well. Continue monitor remotely every 3 months. Follow up in the clinic in 6 months time. (4) Preoperative cardiovascular examination: Code(s): Z01.810 - Encounter for preprocedural cardiovascular examination Plan: Preoperative cardiovascular risk stratification for shoulder surgery, total shoulder replacement which is considered intermediate risk surgery. She has no new symptoms and has nonobstructive CAD with normally functioning bioprosthetic aortic valve. She is currently low to intermediate risk for perioperative cardiovascular morbidity mortality. Continue all medications in the perioperative. With the exception of aspirin therapy which can be held for 5-7 days prior to the procedure. Given the proximity of the pacemaker towards surgical site and use of cautery anticipated, would reprogrammed her pacemaker preoperatively to DOO mode and reprogrammed post surgically to her usual settings. Will follow up in the clinic in 6 months time, sooner p.r.n.. Thank you for allowing me to partake in her care Coding Level of Care Code Est Pt Level 4 (21963) Complex EM visit Add On G2211 Diagnoses CAD (coronary artery disease) I25.10 S/P TAVR (transcatheter aortic valve replacement) Z95.2 Cardiac pacemaker in situ Z95.0 Preoperative cardiovascular examination Z01.810 CPT Codes Cardiac Device Check - Cardiac Device 2: [id number] Cardiac Device Check, pacemaker dual lead ([id number]) EKG - CPT: 18875-[id number], Complete ([id number])
== END 2025-01-13 11:33 | disposition home or self-care (01) ==
PROVIDERS: PCP Internal Medicine; Visit Provider Internal Medicine Cardiovascular Disease
DX: I25.10 Atherosclerotic heart disease of native coronary artery without angina pectoris (principal); Z95.2 Presence of prosthetic heart valve; Z95.0 Presence of cardiac pacemaker; Z01.810 Encounter for preprocedural cardiovascular examination
CPT/HCPCS: 93010; 93280; 99214; G2211

== ENCOUNTER → 2025-01-13 10:59 | Outpatient (BNVA) | payer MEDICARE, OTHER, SELFPAY | PROVIDERS: PCP Internal Medicine; Visit Provider Internal Medicine Cardiovascular Disease | DX: Z01.810 Encounter for preprocedural cardiovascular examination (principal); Z45.018 Encounter for adjustment and management of other part of cardiac pacemaker; I25.10 Atherosclerotic heart disease of native coronary artery without angina pectoris; R94.31 Abnormal electrocardiogram [ECG] [EKG]; Z95.2 Presence of prosthetic heart valve | CPT/HCPCS: 93005; 93280; 99212 ==

== ENCOUNTER 2025-03-09 10:16 | Outpatient (AMB) | payer MEDICARE, OTHER, SELFPAY ==
--- NOTE | 2025-03-09 10:21 | A.OFFVIS_ITS ---
Vital Signs 03/09/25 10:22 Height 4 ft 10 in Weight 119 lb 0.794 oz BMI 24.9 BP 119/58 L Blood Pressure Location Lt brachial Position Sitting Pulse 80 Intake Visit Reasons: 7 month f.u Intake Note: Richa presents in the office as a 7 month follow up. CC: She states that she just suffers from indigestion and questions regarding hiatal hernia. [employer] Required: No Allergies lisinopril Adverse Reaction (Intermediate, Verified 03/09/25 10:22) Cough bees Allergy (Intermediate, Uncoded 03/09/25 10:22) Rash HPI HPI 7 month f.u: Details: 79 yr old patient being seen for follow up for indigestion RECAP: She had been having issues with indigestion for a long time she denies nausea or vomiting she denies dysphagia she has some regurgitation usu 2 hrs after she eats trying to cut back on wine and chocolate and her portions she has bloating and gas she generally doesnt feel well she is doing less than she normally does she feels she has a lot fo stress in life she has looser type of stools in the morning, for a while no blood in stools she feels hungry all the time she has had x 3 colonoscopy in the past at [facility] --normal per her but did have hx of polyps She had TAVR procedure done she had CT with ?colitis noted after surgery possibly due to underdistention EGD/COLO 08/06/24 Endoscopy Findings: hiatal hernia gastritis fundic gland polyps hiatal hernia erosive esophagitis Colonoscopy Findings: colon polyps internal hemorrhoids path: adenomatous polyps, white cells duodenum, fundic gland H pylori and celiac INTERIM: her main c/o gurgling sounds of the guts she has good appetite no constipation no blood in stool no nausea or vomiting EXAM: GENERAL: The patient is well developed and nontoxic. VITAL SIGNS:see workflow HEENT: Nonicteric sclerae, PERRLA, EOMI. Oropharynx clear. Moist mucous membranes. Conjunctivae appear well perfused. No thyroid mass. CHEST: Chest wall is tender, scar noted left upper chest area HEART: Regular rate and rhythm LUNGS: Clear to auscultation bilaterally. ABDOMEN: Soft, positive bowel sounds, nontender, no organomegaly.no flank tenderness SKIN: No rash, no excessive bruising, petechiae, or purpura. NEUROLOGIC: Cranial nerves II-XII intact without motor/sensory deficit. A/P: 1/ colon polyps, adenomatous 2/ esophagitis and IEL on bx duodenum 3/ borbogymi Plan: 1/ cont with PPI--take multivitamin 2/ advised to add fiber and increase water in diet and see if helps the borbygymi 3/ repeat colo in 1-2 yrs due to prep PFSH Medical History (Updated 03/09/25 @ 10:45 by Denys Cabrera MD) Pericarditis CAD (coronary artery disease) Aortic stenosis Cardiac pacemaker in situ HTN (hypertension) Surgical History (Updated 03/09/25 @ 10:31 by HERMELINDO Bowen) Hx of shoulder surgery H/O cardiac catheterization S/P TAVR (transcatheter aortic valve replacement) Hx of colonoscopy H/O tubal ligation History of hip surgery Family History Father CVD (cardiovascular disease) Mother Diabetes Social History Household Members Other:: lives alone Are you a primary child care leader to a significant other at home: No Do you presently have visiting nurse or other home services: No Alcohol intake: current Alcohol intake frequency: 0-2 drinks per day Alcohol type: wine and hard liquor Patient Tobacco Use Status: Never used Tobacco Physical Exam Vital Signs: Last Vital Signs Pulse 80 03/09/25 10:22 BP 119/58 L 03/09/25 10:22 BMI result Body Mass Index 24.9 Assessment & Plan Assessment & Plan (1) Borborygmi: Code(s): R19.8 - Other specified symptoms and signs involving the digestive system and abdomen Category: Medical Plan: see above Coding Level of Care Code Est Pt Level 3 (72644) Diagnoses Borborygmi R19.8
[2025-03-09 10:22] VITALS: BP 119/58; PULSE 80; BMI 24.9
--- OUTSIDE RECORDS SUMMARY | 2025-03-09 11:35 | XMS_ITS | Data Portability ---
Author Organization [facility], [facility] Address [address] [place] [address] Care Team Providers Care Grease Maker Name Role Phone ALEM FIGUEROA Primary Care Provider [phone] Assessment Encounter Date Assessment Date Assessment LastModified by Organization Details LastModified Time 05/21/2024 05/21/2024 Assessment: Left long trigger finger recurrent after 1 prior cortisone injection in December 2022 Plan: Left long finger second cortisone injection performed. Follow-up as needed. héctor Not available 05/21/2024 14:31:57 07/24/2024 07/24/2024 I am seeing the patient today under the supervision of josr who was available but who did not see the patient. Patient comes to the office with L shoulder impingement syndrome. The patient has done well with conservative management for their shoulder pain. Has had increasing discomfort over the past several weeks without injury. Pain is generalized about the shoulder. Off and on discomfort is noted at night. PFMSH and ROS has been reviewed, updated, and signed by me and is located in the patient's chart. PHYSICAL FINDINGS: The patient is well appearing, in no apparent distress, alert and oriented to person, place and time. Gait is symmetric. No significant swelling, warmth or erythema about either shoulder. There is mild tenderness to palpation about the shoulder and AC joint. Active range of motion of the shoulder is near full with mild to moderate pain through mid range manipulations. 4/5 strength of the shoulder, but the rotator cuff seems to fire well. Good stability of the shoulder. Peripheral, vascular, lymphatic examination, skin, neurologic coordination, reflexes, sensation are within normal limits. 2 x-rays views of the shoulder were ordered and independently reviewed today: No fractures, no deformities, no DJD noted on todays exam ASSESSMENT: Impingement Syndrome l shoulder. PLAN: The patient has done well with conservative management in regards to the L shoulder. We discussed the role of medications, physical therapy, injections, and potential surgical interventions depending on conservative outcome Continued conservative management recommended. Moderating activities with the upper extremity recommended also. Patient was proceeded with injection. Please see procedure note. Patient will follow up as discussed. [email or web address] Not available 07/24/2024 08:43:34 Plan of Treatment Reminders Order Date Submit Date Provider Last Modified By Organization Details Last Modified Time Details Appointments POST OP 15 2024 11:00A M Yogesh lawrence PA-C Not available Not available Not available PT INITIAL EVAL 2024 11:00A M Quang Alejo, PT Not available Not available Not available PT FOLLOW- UP 2024 02:00P M Viki Peterson, ANESTHETIST Not available Not available Not available PT FOLLOW- UP 2024 11:00A M Quang Alejo, PT Not available Not available Not available PT FOLLOW- UP 2024 11:00A M Viki Peterson, ANESTHETIST Not available Not available Not available PT FOLLOW- UP 2024 11:00A M Quang Aleoj, PT Not available Not available Not available PT FOLLOW- UP 2024 10:00A M Quang Manciaek, PT Not available Not available Not available PT FOLLOW- UP 2024 10:00A M Quang Alejo, PT Not available Not available Not available PT FOLLOW- UP 2024 01:30P M Quang Alejo, PT Not available Not available Not available PT FOLLOW- UP 2024 02:00P M Viki Peterson, ANESTHETIST Not available Not available Not available PT FOLLOW- UP 2024 12:30P M Viki Peterson, ANESTHETIST Not available Not available Not available PT FOLLOW- UP 2024 12:30P M Viki Peterson, ANESTHETIST Not available Not available Not available PT FOLLOW- UP 2024 10:30A M Quang Alejo, PT Not available Not available Not available PT FOLLOW- UP 2024 01:30P M Quang Alejo, PT Not available Not available Not available PT FOLLOW- UP 2024 02:00P M Viki Peterson, ANESTHETIST Not available Not available Not available PT FOLLOW- UP 2024 10:30A M Viki Peterson, ANESTHETIST Not available Not available Not available PT FOLLOW- UP 2024 11:30A M Viki Petersno, ANESTHETIST Not available Not available Not available PT FOLLOW- UP 2024 10:30A M Viki Peterson, ANESTHETIST Not available Not available Not available RECHECK 15 2024 10:30A M Alicia Moore MD Not available Not available Not available PT FOLLOW- UP 2024 01:00P M Quang Alejo, PT Not available Not available Not available PT FOLLOW- UP 2024 01:00P M Quang Alejo, PT Not available Not available Not available PT FOLLOW- UP 2024 11:00A M Viki Peterson, ANESTHETIST Not available Not available Not available PT FOLLOW- UP 2024 10:30A M Quang Alejo, PT Not available Not available Not available Lab None recorde d. Referral physica l therapi st referra l - S/p Right reverse total shoulde r arthrop lasty, 025VISI TS: 2x/week x 12+ weeksTH ERAPY START: 025Disl ocation Precaut ions x 12 weeks: AVOID- Shoulde r hyperex tension - Abducti on + ER- Adducti on + extensi on + IR- Lifting or support ing body weight with operate d armWEEK S 0 - 5 POSTOP - Goal: Allow glenoid in-grow th, avoid disloca tion, protect subscap ularis repair- Sling at all times except for PT, home exercis es, showeri ng- No shoulde r ROM except that require d for taking sling on and off ? Strictl y avoid AROM- Absolut jermaine NO shoulde r extensi on or active IR for 6 weeks- Maintai n pillow behind operati ve elbow when sitting or in bed to keep elbow in front of body- Reinfor cement of disloca tion precaut ions - AROM of elbow, wrist and hand with arm at side ? no resista nce or weight- Ice 3 ? 4x dailyWE EKS 6 - 9 POSTOP - Goal: Begin deltoid strengt hening while avoidin g disloca tion, protect ing subscap ularis repair- Wear sling in uncontr olled setting s (in public) , otherwi se begin to wean sling use- Slowly advance PROM to toleran ce in FE, ER- Begin AAROM and AROM in FE, ER and abducti on - Begin supine and advance to seated/ standin g - Wand or cane for flexion , ER, IR and abducti on - Supervi sed pulleys okay- Begin PROM in IR to toleran ce, up to 50 degrees in the scapula r plane- Reinfor cement of disloca tion precaut ions- AROM of elbow, wrist and hand with arm at side ? no resista nce or load greater than cup of coffee- Ice followi ng exercis esWEEKS 10 - 12 POSTOP - Goal: Increas e functio n and strengt h- Progres s ROM to full- Begin submaxi mal, pain-fr ee deltoid isometr ics in the scapula r plane WEEKS 13 - 15 POSTOP - Goal: Strengt hening- No ROM restric tions, encoura ge full AROM in all directi ons - May begin IR behind the back, but do not pursue aggress ively: this is often the last motion to come back/ma y not return complet jermaine- Incorpo rate resisti ve bands and light weights for deltoid strengt hening- Begin submaxi mal isometr ics for rotator cuff (scapti on, ER and IR). Should be PAIN FREE, stop if pain with initiat ion of these exercis es- May incorpo rate pool therapy if incisio n complet jermaine closed: PROM, AAROM, pendulu ms and walking --> gradual ly progres s to AROM- Weight restric tion ~5 lbsWEEK S 16+ POSTOP: Progres s strengt hening, return to more normal activit y - Increas e resista nce of strengt hening exercis berna villegas sing to up to 10lbs by 6 months postop - Return to sports: - Swimmin g: begin with breast and side stroke; overhea d strokes may be difficu lt until ROM is improve d - Golf: May begin putting at 3 months; chippin g at 4 months, beginni ng with half swings; front load trash truck driver at 6 months - Tennis/ pickle ball: ball against wall, VERY light rallies at 4 months; no competi tive games until after 6 months - No contact sports for at least 6 months 2024 025 [email or web address] Not available 03/02/2025 07:45:05 Procedures None recorde d. Surgeries total shoulde r arthrop lasty (SURG) 2024 025 [email or web address] [facility] (Scheduling), [address] [place], [address], 12/03/2024 11:16:52 Imaging XR, shoulde r, 2 or more view - L: rtsa sx 3 view rm 214 2024 025 [email or web address] [facility] [address], [address], [place], [address], 03/02/2025 07:45:04 XR, shoulde r, 2 or more view - rm 314 4v left shoulde r 2023 024 cristina [facility], [address], [address], [place], [address], 07/24/2024 10:57:00 Medication Orders Colace 100 mg capsule 2024 025 [id number], [address] [place], [address], 02/16/2025 11:07:34 acetami nophen 500 mg tablet 2024 025 [id number], [address] [place], [address], 01/30/2025 12:36:29 aspirin 325 mg tablet 2024 025 [id number], [address] [place], [address], 02/16/2025 11:07:14 morphin e 15 mg immedia te release tablet 2024 025 [facility] #[id number], [address] [place], [address], 02/16/2025 11:07:38 Patient TargetsNo targets recorded. Patient InstructionsNo instructions recorded. Reason for Referral Physical Therapist Referral for History of reverse prosthetic total arthroplasty of left shoulder S/p Right reverse total shoulder arthroplasty, 02/03/2025VISITS: 2x/week x 12+ weeksTHERAPY START: 03/17/2025Dislocation Precautions x 12 weeks: AVOID- Shoulder hyperextension- Abduction + ER- Adduction + extension + IR- Lifting or supporting body weight with operated armWEEKS 0 - 5 POSTOP - Goal: Allow glenoid in-growth, avoid dislocation, protect subscapularis repair- Sling at all times except for PT, home exercises, showering- No shoulder ROM except that required for taking sling on and off ? Strictly avoid AROM- Absolutely NO shoulder extension or active IR for 6 weeks- Maintain pillow behind operative elbow when sitting or in bed to keep elbow in front of body- Reinforcement of dislocation precautions - AROM of elbow, wrist and hand with arm at side ? no resistance or weight- Ice 3 ? 4x dailyWEEKS 6 - 9 POSTOP - Goal: Begin deltoid strengthening while avoiding dislocation, protecting subscapularis repair- Wear sling in uncontrolled settings (in public), otherwise begin to wean sling use- Slowly advance PROM to tolerance in FE, ER- Begin AAROM and AROM in FE, ER and abduction - Begin supine and advance to seated/standing - Wand or cane for flexion, ER, IR and abduction - Supervised pulleys okay- Begin PROM in IR to tolerance, up to 50 degrees in the scapular plane- Reinforcement of dislocation precautions- AROM of elbow, wrist and hand with arm at side ? no resistance or load greater than cup of coffee- Ice following exercisesWEEKS 10 - 12 POSTOP - Goal: Increase function and strength- Progress ROM to full- Begin submaximal, pain-free deltoid isometrics in the scapular plane WEEKS 13 - 15 POSTOP - Goal: Strengthening- No ROM restrictions, encourage full AROM in all directions - May begin IR behind the back, but do not pursue aggressively: this is often the last motion to come back/may not return completely- Incorporate resistive bands and light weights for deltoid strengthening- Begin submaximal isometrics for rotator cuff (scaption, ER and IR). Should be PAIN FREE, stop if pain with initiation of these exercises- May incorporate pool therapy if incision completely closed: PROM, AAROM, pendulums and walking --> gradually progress to AROM- Weight restriction ~5 lbsWEEKS 16+ POSTOP: Progress strengthening, return to more normal activity - Increase resistance of strengthening exercises, progressing to up to 10lbs by 6 months postop - Return to sports: - Swimming: begin with breast and side stroke; overhead strokes may be difficult until ROM is improved - Golf: May begin putting at 3 months; chipping at 4 months, beginning with half swings; front load trash truck driver at 6 months - Tennis/pickle ball: ball against wall, VERY light rallies at 4 months; no competitive games until after 6 months - No contact sports for at least 6 months Referring Physician: Alicia Moore, Orthopedic Surgery, Encounter Date: 02/16/2025 Results Created Date Observation Date Name Description Value Unit Range Abnormal Flag Note LastModifiedBy Organization Detail LastModifiedTime 07/24/20 24 07/24/2024 kiran ALONSO, 2 or more view http:/ [email or web address] ?Encry pted=s hAaTro YD8dLq bEUv6g %2BXZw aYqtaq 0bqfl% 2Fg9IQ a4ajBk vP9nXo QUaueC m3YtLR FvZlgJ JJ8mAn HZtai3 3c0009 AC0Kqa nuEUKe iKiQtr MwF INTERFACE [facility] [address] [facility] [address], [place], [address], 07/24/2024 08:25:46 11/25/19 25 11/18/2024 kiran ALVAREZ, w/o contr ast No observ ation record ed. BARCODE [facility] ([facility]) [address], [place], [address], 11/25/2024 15:38:46 01/13/20 25 01/12/2025 CT, shoul keri, w/o contr ast No observ ation record ed. [email or web address] [facility] [place] [address] [facility] [address], [place], [address], 01/14/2025 09:14:12 02/04/20 25 02/03/2025 XR, shoul keri, 1 view No observ ation record ed. [email or web address] [facility] [address], [place], [address], 02/04/2025 09:18:06 02/17/20 25 02/16/2025 XR, shoul keri, 2 or more view [email or web address] ?Encry pted=s hAaTro YD8dLq bEUv6g %2BXZw aYqtaq 0bqfl% 2Fg9IQ a4ajBk vP9nXo QUaueC m3YtLR FvZlgJ JJ8mAn HZtai3 3i3877 AC0KqY 3uGVqG iKiQtr MwF INTERFACE [facility] [address], [place], [address], 02/16/2025 11:16:42 02/17/20 25 02/16/2025 XR, shoul keri, 2 or more view [email or web address] ?Encry pted=s hAaTro YD8dLq bEUv6g %2BXZw aYqtaq 0bqfl% 2Fg9IQ a4ajBk vP9nXo QUaueC m3YtLR FvZlgJ JJ8mAn HZtai3 6v0519 AC0KqY 3uGVqG iKiQtr MwF INTERFACE [facility] [address], [place], [address], 02/16/2025 11:16:44 Result Notes None recorded. Problems Name Problem SNOMED Code Status Onset Date Resolution Date Notes Provider Name and Address Organization Details Recorded Time No complaint s 728619170 Active Status: 'I'; Not Available [facility] 4 09:21:24 Derangeme nt of left shoulder joint [id number] 28770 Active 2023 Jose Gray PA-C [address], [place], [address] , [facility] 4 09:15:22 Hip joint prosthesi s present 781871790 Active 2019 Problem Code: Z96.641; Problem Code Type: ICD-10; Status: 'A'; Not Available [facility] 4 11:42:46 Problem Notes None recorded. Procedures Surgical History Date Name Laterality Status Provider Name and Address Organization Details Recorded Time 02/04/20 25 prosthetic arthroplasty of shoulder completed JACKELINE VALDES [facility] 02/10/2025 16:11:53 07/24/20 24 JZShoulder INJ completed Jose Gray PA-C [address], [place], [address], [facility] 07/24/2024 08:43:39 05/21/20 24 Trigger Finger Kenalog Injection completed Jennie Coleman MD [address], [place], [address], [facility] 05/21/2024 14:26:20 12/05/19 24 Cardiovascular Surgery completed JACKELINE VALDES [facility] 11/25/2024 13:02:28 Hip Surgery completed JACKELINE VALDES [facility] 11/25/2024 13:02:28 Imaging Results Imaging Date Name Status LastModified by Organiz ation Details LastModified Time 07/24/2024 XR, shoulder, 2 or more view completed INTERFACE [facility] [address], [place], [address], 07/24/2024 08:25:46 11/18/2024 MRI, shoulder, w/o contrast completed BARCODE [facility] ([facility]) [address], [place], [address], 11/25/2024 15:38:46 01/12/2025 CT, shoulder, w/o contrast [place] [address] [facility] [place] [address], [place], [address], 01/14/2025 09:14:12 02/03/2025 XR, shoulder, 1 view completed [address], [place], [address], 02/04/2025 09:18:06 02/16/2025 XR, shoulder, 2 or more view completed INTERFACE [facility] [address], [place], [address], 02/16/2025 11:16:42 02/16/2025 XR, shoulder, 2 or more view completed INTERFACE [facility] [address], [place], [address], 02/16/2025 11:16:44 Procedure Notes None recorded. Medical Equipment None Reported. Allergies Allergen ID Allergen Name Allergen Category Reaction Reaction Severity Criticality Documentation Date Start Date Code Code System Note Provider Name and Address Organization Details Recorded Time 091718 honey bee venom medicatio n Not available Not available Not available 05/21/2024 42579 7 RxNorm MARY doe [place] - [place] [facility] 14:19:27 Medications Name Sig Start Date Stop Date Status Note LastModified by Organization Details LastModified Time losartan 50 mg tablet TAKE 1 TABLET TWICE A DAY active Not Available Not Available No t Available amoxicillin 500 mg capsule TAKE 4 CAPSULES BY MOUTH BEFORE DENTAL APPOINTME NT NEEDED 07/24 completed Not Available Not Available Not Available nystatin 100,000 unit/mL oral suspension SWISH AND SWALLOW 1 ML BY MOUTH EVERY DAY 07/24 completed Not Available Not Available Not Available triamcinolo ne acetonide 0.5 % topical cream APPLY TO AFFECTED AREA 3 TIMES A DAY 03/28 /2025 completed Not Available Not Available Not Available atorvastati n 10 mg tablet TAKE 1 TABLET DAILY active Not Available Not Available No t Available aspirin 325 mg tablet TAKE 1 TABLET BY MOUTH EVERY DAY FOR 14 DAYS 02/16 completed Not Available Not Available Not Available clopidogrel 75 mg tablet TAKE 1 TABLET BY MOUTH EVERY DAY 07/24 completed Not Available Not Available Not Available acetaminoph en 500 mg tablet TAKE 2 TABLETS BY MOUTH 3 TIMES A DAY active Not Available Not Available No t Available amoxicillin 500 mg tablet TAKE 4 TABLETS BY MOUTH 1 HOUR PRIOR TO APPOINTME NT. 11/25 completed Not Available Not Available Not Available ondansetron 8 mg disintegrat ing tablet PLACE 1 TABLET 3 TIMES A DAY BY TRANSLING UAL ROUTE NEEDED, FOR NAUSEA. 02/16 completed Not Available Not Available Not Available pantoprazol e 40 mg tablet,val yed release TAKE 1 TABLET DAILY active Not Available Not Available No t Available diphenhydra mine 25 mg tablet TAKE 1 TABLET BY MOUTH ORALLY 3 TIMES A DAY NEEDED FOR ITCHING active Not Available Not Available No t Available ibuprofen 400 mg tablet TAKE 2 TABLETS BY MOUTH 3 TIMES A DAY FOR 30 DAYS active Not Available Not Available No t Available betamethaso ne dipropionat e 0.05 % topical cream APPLY TO AFFECTED AREA EVERY DAY NEEDED 07/24 completed Not Available Not Available Not Available docusate sodium 100 mg capsule TAKE 1 CAPSULE BY MOUTH EVERY DAY NEEDED 02/16 completed Not Available Not Available Not Available scopolamine 1 mg over 3 days transdermal patch APPLY 1 PATCH EVERY 72 HOURS BY TRANSDERM AL ROUTE NEEDED, FOR NAUSEA. 02/16 completed Not Available Not Available Not Available methylpredn isolone 4 mg tablets in a dose pack TAKE 6 TABLETS ON DAY 1 DIRECTED ON PACKAGE AND DECREASE BY 1 TAB EACH DAY FOR A TOTAL OF 6 DAYS 07/24 completed Not Available Not Available Not Available colchicine 0.6 mg tablet TAKE 1 TABLET BY MOUTH 2 TIMES A DAY. MEDICATIO N CAN BE STOPPED AFTER THIS REFILL. 07/24 completed Not Available Not Available Not Available morphine 15 mg immediate release tablet TAKE 1 TABLET BY MOUTH EVERY 4 HOURS NEEDED FOR 7 DAYS, FOR POSTOPERA TIVE PAIN. 02/16 completed Not Available Not Available Not Available Vitamin D3 active Not Available Not Av ailable Not Available sodium,pota ssium,mag sulfates 17.5 gram-3.13 gram-1.6 gram oral soln DILUTE DRINK 1/2 AT 6-8 PM AND HALF AT 11 PM- 1AM 01/30 completed Not Available Not Available Not Available Vitals Date Recorded Body height Body mass index (BMI) Body weight Provider Name and Address Organization Details Last Updated DateTime 05/21/2024 147.32 cm 24.9 kg/m2 93296.49 g MARY MUIR [facility] 05/21/2024 14:18:49 Date Recorded Body height Body mass index (BMI) Body weight Provider Name and Address Organization Details Last Updated DateTime 07/24/2024 147.32 cm 24.9 kg/m2 33419.49 g Sin Ronald [facility] 07/24/2024 08:17:08 Date Recorded Body height Body mass index (BMI) Body weight Provider Name and Address Organization Details Last Updated DateTime 11/25/2024 147.32 cm 24.9 kg/m2 75408.49 g JACKELINE VALDES [facility] 11/25/2024 13:02:35 Date Recorded Body height Body mass index (BMI) Body weight Body temperature Oxygen saturation Oxygen saturation in Arterial blood by Pulse oximetry Respiratory rate Heart rate Provider Name and Address Organization Details Last Updated DateTime 147.32 cm 24.9 kg/m2 91761.4 9 g 97.6 [degF] 98 % 98 % 98 /min 82 /min JACKELINE VALDES [facility] 11:52:23 Date Recorded Body height Body mass index (BMI) Body weight Body temperature Provider Name and Address Organization Details Last Updated DateTime 02/16/2025 147.32 cm 24.9 kg/m2 90106.49 g 98.3 [degF] JACKELINE VALDES [facility] 02/16/2025 11:00:15 Social History None recorded. Functional Status None recorded. Mental Status None recorded. Family History Nothing Reported. Medical History Condition Response Allergies/Hayfever N Coronary Artery Disease N Breathing or lung disorders N Anxiety/Depression N Emphysema N Nerve Disorders N Thyroid Problems N COPD N Pacemaker N Kidney/Bladder Problems N Anemia N Vascular Disease N Heart Trouble Y Heart Attack (IN) N Gastrointestinal Disease Y Cholesterol N Diabetes N Autoimmune disease N Inflammatory Joint disease N Bleeding Disorder N Orthotics N Seizures/Epilepsy N Arthritis Y Blood Clot N AIDS/HIV N Congestive Heart Failure (CHF) N Acid Reflux (GERD) N Cancer N Stroke Y Asthma N Circulation Problems N Peripheral Vascular Disease N Sleep Apnea N Hepatitis N Heart Disease N Rheumatoid Arthritis N Pulmonary Embolism N Arrhythmia N Headaches N Fibromyalgia N Hypertension Y Osteoporosis N Gynecological HistoryNo gynecological history recorded. Obstetrics History GPAL:G 0 P 0 0 0 0 Past Encounters Encounter ID Performer Location Encounter Start Date Encounter Closed Date Diagnosis/Indication Diagnosis SNOMED-CT Code Diagnosis ICD10 Code Diagnosis Note [id number] MD Chester Bright [address] [place] [address] 05/21/2024 13:54:48 06/05/2024 12:37:40 Acquired trigger finger of left middle finger [id number] 89860 M65.409 [id number] MARLIN Santizo [address] [place] [address] 07/24/2024 08:09:02 08/13/2024 15:14:37 Pain of left shoulder joint 8174737416 6278597 M25.255 [id number] MD CARY Patino [facility] [address] [place] [address] 11/25/2024 12:56:46 12/04/2024 11:21:49 Osteoarthritis of left glenohumeral joint 3728458118 449232 M19.204 [id number] MD CARY Patino [facility] [address] [place] [address] 01/30/2025 11:29:12 02/16/2025 14:31:16 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 0842987812 227241 M75.633 [id number] MD CAYR Patino [place] [address] [place] [address] 02/16/2025 10:55:26 03/02/2025 07:45:04 History of reverse prosthetic total arthroplasty of left shoulder [id number] Z96.612 Health Concerns Section Related Observation LastModified by Organization Detai ls LastModified Time None Recorded Concern Status LastModified by Organization Details LastModified Time None Recorded Advance Directives Directive None Recorded Payers Encounter Date Sequence Insurance Name Policy Number Policy Gr[place]on Covered Member ID Grullon Member ID Guarantor Name 05/21/2024 2 [employer] - [employer] [id number] Richa M Pijar [id number] Richa M Pijar 05/21/2024 1 MEDICARE B-DC: [employer] Richa M Pijar [id number] Richa M Pijar 07/24/2024 2 [employer]AN - [employer] [id number] Richa M Pijar [id number] Richa M Pijar 07/24/2024 1 MEDICARE B-DC: [facility] GOVERNMENT SERVICES Richa M Pijar [id number] Richa M Pijar 11/25/2024 2 COMMONWEALTH INDEMNITY PLAN - [employer] [id number] Richa M Pijar [id number] Richa M Pijar 11/25/2024 1 MEDICARE B-DC: [facility] Richa M Pijar [id number] Richa M Pijar 01/30/2025 2 [employer] INDEMNITY PLAN - [employer] [id number] Richa M Pijar [id number] Richa M Pijar 01/30/2025 1 MEDICARE B-DC: [facility] Richa M Pijar [id number] Richa M Pijar 02/16/2025 2 [employer] INDEMNITY PLAN - [employer] [id number] Richa M Pijar [id number] Richa M Pijar 02/16/2025 1 MEDICARE B-DC: [facility] Richa M Pijar [id number] Richa M Pijar Notes Date Note Type Note Provider Name and Address Organization Details Recorded Time 4 text/html Patient is a 79-year-old hwqr-wzbj-glgtlxon mom of Camila and x-rays seen in follow-up for a left long trigger finger initial treatment in December 2022 and treated with a cortisone injection. Symptoms recently returned. Here today for her second injection. Jennie Coleman MD [address], [place], [address], 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 She does not recall any one specific shot that was painful, but by the end of the day she w as having significant pain. Unfortunately, this has not gotten much better since then. She has been through a course of physical therapy with a visiting therapist. Also had a cortisone injection in July, neither of which resulted in any improvement in pain. Takes occasional ibuprofen at nighttime, which does help a bit with sleeping. Has also tried acupuncture and ice. Pain felt over the lateral brachium, exacerbated by overhead reach. Aware of weakness with this motion as well. Denies crepitus. Denies numbness or tingling. Past family, medical, social history and review of systems have been reviewed and updated on the medical history sheet saved to the patient's chart. A 12-point review of systems is negative x12 except as noted above and/or on the medical history sheet. Examination: Very pleasant 79-year-old woman in no acute distress. 4 feet 10 inches, 119 pounds. On exam of the left upper extremity, skin over the shoulder is intact. No effusion, no gross atrophy. Tender to palpation over the subacromial space laterally. Active forward elevation 80, passive 165 without subacromial crepitus. Passive external rotation 65 with negative ER lag. Internal rotation L3. 4/5 strength with external rotation and empty can, both with pain, 5/5 with internal rotation. Negative Yergason's. Sensation intact in an axillary distribution. Fires EPL, FPL and intrinsics. Hand is warm and well-perfused. Imagin views of the Left shoulder ordered and obtained at [facility] 07/24/2024 were reviewed during the visit. These demonstrate good preservation of glenohumeral joint space. Type II acromion. At least moderate AC arthrosis. No proximal migration humeral head. A pacemaker overlies the left chest. Left shoulder MRI performed at [facility] 11/18/2024 independently reviewed by me [facility] during the visit today. This demonstrates a full-thickness tear of the posterior superior cuff involving supraspinatus and infraspinatus. Torn tissues retracted to the mid humeral head. Reasonably good tissue quality, though there is quite a bit of volume loss of the supraspinatus on T1 sagittals. There may be a slight upper border subscapularis tear, certainly some tendinopathy, no definite full-thickness tear that I can appreciate, though the arm is quite initially rotated on the study. Mild degenerative changes to glenohumeral articular cartilage surfaces. Moderate AC arthrosis though without distal clavicle edema. Type II acromion. Impression: 79-year-old cgid-fupl-xyizwdkj woman with large, retracted rotator cuff tear. She has unfortunately failed conservative treatment, including cortisone injection, oral medications, physical therapy. Plan: Given failure of conservative treatment, we did discuss surgical options today. While tissue quality overall looks good, there is some volume loss to the supraspinatus, raising some concern as to the repairability of the tear. Having weighed pros and cons, risks and benefits of rotator cuff repair versus reverse total shoulder arthroplasty, overall I think a reverse total shoulder arthroplasty is likely to yield more reliable outcome and with a quicker timeframe for recovery. She is hoping to get through her summer activities and address the shoulder in the fall at the end of golf season (late August, early September). She will require medical and cardiac clearance leading up to surgery. Would recommend that we do this at the hospital given cardiac history. Will require 3D CT scan for preoperative planning purposes within a month of anticipated surgical date. [employer] speech recognition momd teacher software was used to create portions of this document. An attempt at proofreading has been made to minimize errors. Please call for corrections. Alicia Moore MD [facility] [address] [facility], [place], [address], [facility] 11/25/2024 13:45:08 5 text/html SURGICAL DECISION MAKING Issue: Left shoulder large to massive retracted rotator cuff tear HPI: This is a 79-year-old left hand dominant retired but very active (golf) woman with left shoulder pain beginning after a round of golf on 05/07/2024. She does not recall any one specific shot that was painful, but by the end of the day she w as having significant pain. Unfortunately, this has not gotten much better since then. She has been through a course of physical therapy with a visiting therapist. Also had a cortisone injection in July, neither of which resulted in any improvement in pain. Takes occasional ibuprofen at nighttime, which does help a bit with sleeping. Has also tried acupuncture and ice. Pain felt over the lateral brachium, exacerbated by overhead reach. Aware of weakness with this motion as well. Denies crepitus. Denies numbness or tingling. Given ongoing symptoms refractory to conservative management, we are planning to move forward with surgical intervention. PMH: Hypertension, hypercholesterolemia PSH: H/o valve replacement, with pacemaker, hip replacement Meds: atorvastatin, losartan, pantoprazole Allergies: Bee venom Social Hx: Retired. Quite active, particularly enjoys golf. Family Hx: noncontributory ROS: Negative x12 except as noted above in the HPI Past family, medical, social history and review of systems have been reviewed and updated on the medical history sheet saved to the patient's chart. A 12-point review of systems is negative x12 except as noted above and/or on the medical history sheet. Examination: Very pleasant 79-year-old woman in no acute distress. 4 feet 10 inches, 119 pounds. Neuro: Awake, alert and oriented Neck: Supple HEENT: Oropharynx clear Chest: No increased work of breathing, no audible wheeze Heart: Regular rate by palpation peripherally Abdomen: Soft nontender nondistended MSK: On exam of the left upper extremity, skin over the shoulder is intact. No effusion, no gross atrophy. Tender to palpation over the subacromial space laterally. Active forward elevation 80, passive 165 without subacromial crepitus. Passive external rotation 65 with negative ER lag. Internal rotation L3. 4/5 strength with external rotation and empty can, both with pain, 5/5 with internal rotation. Negative Yergason's. Sensation intact in an axillary distribution. Fires EPL, FPL and intrinsics. Hand is warm and well-perfused.Imagin views of the Left shoulder ordered and obtained at [facility] 07/24/2024 were reviewed during the visit. These demonstrate good preservation of glenohumeral joint space. Type II acromion. At least moderate AC arthrosis. No proximal migration humeral head. A pacemaker overlies the left chest.Left shoulder MRI performed at [facility] 11/18/2024 independently reviewed by NCIS during the visit today. This demonstrates a full-thickness tear of the posterior superior cuff involving supraspinatus and infraspinatus. Torn tissues retracted to the mid humeral head. Reasonably good tissue quality, though there is quite a bit of volume loss of the supraspinatus on T1 sagittals. There may be a slight upper border subscapularis tear, certainly some tendinopathy, no definite full-thickness tear that I can appreciate, though the arm is quite initially rotated on the study. Mild degenerative changes to glenohumeral articular cartilage surfaces. Moderate AC arthrosis though without distal clavicle edema. Type II acromion. 3D CT scan of the left shoulder performed at [facility] 01/12/2025 independently reviewed by me and uploaded to [employer] planning software, which indicates 1 degree glenoid retroversion, 20 degrees of superior inclination, 54% posterior humeral subluxation. Impression: 79-year-old syes-wxoh-pidtvalw woman with large, retracted rotator cuff tear. She has unfortunately failed conservative treatment, including cortisone injection, oral medications, physical therapy. Given ongoing symptoms refractory to conservative management, we are planning to move forward with surgical intervention. Plan: While tissue quality overall looks good, there is some volume loss to the supraspinatus, raising some concern as to the repairability of the tear. Having weighed pros and cons, risks and benefits of rotator cuff repair versus reverse total shoulder arthroplasty, overall I think a reverse total shoulder arthroplasty is likely to yield more reliable outcome and with a quicker timeframe for recovery. The technical details of surgery were reviewed during the visit. The typical downtime and recovery from such a surgery was discussed, and postoperative restrictions and instructions reviewed with appropriate handouts given. We reviewed the risks of surgery, including but not limited to: Bleeding, infection, injury to nerves/blood vessels/muscles/tendons, pain, stiffness, failure to heal, hardware complications, need for further surgery. The patient expressed understanding of this discussion. Questions were elicited and answered to the patient's satisfaction. Postoperative pain medication prescriptions (tylenol and Morphine IR) e-prescribed to the patient's pharmacy from the office today. Postop DVT prophylaxis will be: Aspirin 325 daily x2 weeks. The postoperative medication regimen was discussed in detail, including the risks and benefits of each medication in turn. We will have the patient go down stairs at the end of the appointment to be fit for a postoperative sling. The patient would benefit from a preoperative nerve block, to be performed by anesthesia, for postoperative pain control. DME: The patient has weakness and instability of their extremity which requires stabilization for this semi-rigid/rigid orthosis to improve their function. Verbal and written instructions for the use and application of this item were given. Patient was instructed that should the brace result in increased pain, decreased sensation, increased swelling or an overall worsening of their medical condition, to please contact our office immediately. [employer] speech recognition momd teacher software was used to create portions of this document. An attempt at proofreading has been made to minimize errors. Please call for corrections. Alicia Moore MD [address] [place] [address] [address] [facility], [place], [address], [facility] 01/30/2025 12:37:12 5 text/html Surgery: Left shoulder by [facility], 02/03/2025 Interval History: Richa returns today in follow-up now 2 weeks out from surgery as above. Doing fairly well. Weaning from pain medications. Tolerating the sling and abiding by postop restrictions. We have not yet started physical therapy. No issues with incision. No numbness or tingling in the arm or hand. Past family, medical, social history and review of systems have been reviewed and updated on the medical history sheet saved to the patient's chart. A 12-point review of systems is negative x12 except as noted above and/or on the medical history sheet. Examination: Pleasant 79-year-old woman in no acute distress. On exam of the Left upper extremity, sling is in place, appropriately positioned. Incision is healing nicely with minimal swelling noted. No evidence for wound dehiscence, spitting suture, or fluid collections. Able to maintain the shoulder abducted against gravity without difficulty. Sensation intact in an axillary distribution. Fires EPL, FPL and intrinsics. Hand is warm and well perfused. Imaginv of the left shoulder ordered and obtained at [facility] today were reviewed during the visit. These demonstrate a reduced glenohumeral joint. Small bone graft evident between baseplate and tazlina glenoid on Grashey view with good correction of preoperative superior inflammation. Central post and all peripheral screws have excellent purchase within the glenoid vault. No evidence for scapular fracture, glenoid notching, or component loosening. Impression: 79-year-old ewaa-eigb-kaichyhu woman, now 2 weeks out from surgery as above. Doing fairly well. Plan: Will continue with sling use for another 4 weeks, though I have indicated that the sling may come off to allow the arm to rest in the lap when the patient is seated in a couch/chair in a quiet environment. Will continue with elbow, wrist and finger range of motion, but will continue to avoid shoulder range of motion or weightbearing through the operative arm. A physical therapy prescription and reverse total shoulder arthroplasty postoperative protocol were given to the patient today, along with instructions to set up therapy to begin approximately 03/17/2025. Copies of these will also be scanned into the patient's chart for future reference as needed. The patient will follow-up in 4 weeks with Mr. Celso Garcia PA-C for next recheck. At that point, I would anticipate discontinuing sling and ensuring that physical therapy has been set up. We will continue to hold off on any weightbearing through the arm or range of motion behind the back until 3 months postop, however. Will hold off on xrays at the next visit as long as the patient is doing well, but will plan to obtain a new set at the 3 month visit to assess healing. [facility] speech recognition momd teacher software was used to create portions of this document. An attempt at proofreading has been made to minimize errors. Please call for corrections. Alicia Moore MD [address] [place], [place] [address] [address], [place], [address], [facility] 02/16/2025 11:45:17 OBGyn Episode No OBEpisode recorded.
== END 2025-03-09 10:46 | disposition home or self-care (01) ==
LOC: HO.HGI 10:17
PROVIDERS: PCP Internal Medicine; Visit Provider Internal Medicine Gastroenterology
DX: R19.8 Other specified symptoms and signs involving the digestive system and abdomen (principal)
CPT/HCPCS: 99213

== ENCOUNTER → 2025-03-09 10:16 | Outpatient (BNVA) | payer MEDICARE, OTHER, SELFPAY | PROVIDERS: PCP Internal Medicine; Visit Provider Internal Medicine Gastroenterology | DX: R19.8 Other specified symptoms and signs involving the digestive system and abdomen (principal) | CPT/HCPCS: 99212 ==

== ENCOUNTER 2025-03-14 10:12 | Emergency (ER) | payer MEDICARE, OTHER, SELFPAY ==
[2025-03-14 10:15] VITALS: BP 153/75; PULSE 94; RESP 16; TEMP 36.6; O2SAT 99; BMI 24.6
[2025-03-14 10:28] VITALS: BP 153/75; PULSE 94; RESP 16; TEMP 36.6; O2SAT 99
--- NOTE | 2025-03-14 10:31 | ED.FEMALEGU ---
HPI - Female Genitourinary General Chief complaint: Urogenital-Female Stated complaint: vaginal bleeding Time Seen by Provider: 03/14/25 10:23 Related Data Home Medications ?Medication ?Instructions ?Recorded ?Confirmed aspirin 81 mg tablet,delayed 81 mg PO DAILY 02/01/21 01/13/25 release (Adult Low Dose Aspirin) multivitamin (Daily Multi-Vitamin 1 tab PO DAILY 08/03/22 01/13/25 tablet) pantoprazole 40 mg tablet,delayed 40 mg PO DAILY 02/01/23 01/13/25 release betamethasone dipropionate 0.05 % 1 appl topical BID 08/22/24 01/13/25 topical cream Previous Rx's ?Medication ?Instructions ?Recorded losartan 50 mg tablet 50 mg PO BID #60 tabs 02/01/23 atorvastatin 10 mg tablet 10 mg PO DAILY 90 days #90 tabs 10/23/23 diphenhydramine HCl 25 mg capsule 25 mg PO TID PRN itching #20 caps 11/14/24 (Benadryl) cefpodoxime 200 mg tablet 200 mg PO BID 7 days #14 tabs 03/14/25 phenazopyridine 200 mg tablet 200 mg PO BID 2 days #4 tabs 03/14/25 (Pyridium) Allergies Allergy/AdvReac Type Severity Reaction Status Date / Time lisinopril AdvReac Intermediate Cough Verified 03/14/25 10:17 bees Allergy Intermediate Rash Uncoded 03/14/25 10:17 PMFSH Past Medical History Medical History (Updated 03/14/25 @ 11:15 by Jose Watkins MD) Pericarditis CAD (coronary artery disease) Aortic stenosis Cardiac pacemaker in situ HTN (hypertension) Surgical History (Updated 03/09/25 @ 10:31 by HERMELINDO Bowen) Hx of shoulder surgery H/O cardiac catheterization S/P TAVR (transcatheter aortic valve replacement) Hx of colonoscopy H/O tubal ligation History of hip surgery Family History Family History Father CVD (cardiovascular disease) Mother Diabetes Social History Social History Household Members Other:: lives alone Are you a primary child day care teacher to a significant other at home: No Do you presently have visiting nurse or other home services: No Alcohol intake: current Alcohol intake frequency: 0-2 drinks per day Alcohol type: wine Patient Tobacco Use Status: Never used Tobacco Smoked in Last 30 Days: No Use of substances other than those prescribed or required for medical reasons: No Advance Directives: No Advance Directives Information Provided: No Do you have a plan to hurt others: No Plan Physical Exam Vital Signs: Vital Signs: Last Vital Signs Temp 98.1 F 03/14/25 11:27 Pulse 86 03/14/25 11:27 Resp 13 03/14/25 11:27 BP 133/61 03/14/25 11:27 Pulse Ox 96 03/14/25 11:27 O2 Del Method Room Air 03/14/25 11:27 BMI result Body Mass Index 24.6 Const: Other: EXAM: Gen: Alert, awake, well appearing, well hydrated. Head: Atraumatic Eyes: Anicteric, Normal conjunctiva. ENT: Moist mucosa, no pallor. ? Neck: Supple. Respiratory: Breathing comfortably, No distress.Clear to auscultation bilaterally, symmetric chest expansion, No wheeze, rales, ronchi. Cardiovascular: Regular rate and rhythm. No murmurs or rub. Well perfused periphery, warm extremities. No edema. ? Abdominal: Soft, no objective distension. No palpable masses or obvious organomegaly. No focal tenderness, no guarding, no rebound tenderness or other peritoneal findings. : No flank tenderness. Neuro: Alert. Gross movement of all extremities intact. ? Vital signs: See flowsheet Medications Administered Discontinued Medications Generic Name Dose Route Start Last Admin Trade Name Freq PRN Reason Stop Dose Admin Cefuroxime Axetil 250 mg 03/14/25 11:12 03/14/25 11:32 Cefuroxime Axetil 250 Mg Tablet PO 03/14/25 11:13 250 mg ONCE ONE Administration Phenazopyridine HCl 100 mg 03/14/25 10:29 03/14/25 10:45 Phenazopyridine Hcl 100 Mg Tablet PO 03/14/25 10:30 100 mg ONCE ONE Administration Medical Decision Making Medical Decision Making MDM Narrative: 79-year-old female with recent UTI completed 5 days of treatment now with recurrent dysuria. Blood in the urine UTI no flank pain no abdominal pain or tenderness looks well no fever no tachycardia. Amenable to outpatient treatment we will advance to a cephalosporin. PATIENT HAS NO HISTORY OF URETERAL STONES ALTHOUGH THIS WAS CONSIDERED. SHE IS PAIN-FREE WITHOUT FLANK OR SUPRAPUBIC TENDERNESS WHATSOEVER. VITAL SIGNS NORMAL LIKELY HEMORRHAGIC CYSTITIS FAVORED OVER URETERAL STONE OR OTHER ACUTE PATHOLOGY. CERTAINLY SHE SHOULD HAVE REPEAT URINALYSIS AFTER COMPLETE MIN OF ANTIBIOTIC TREATMENT TO ENSURE HEMATURIA IS ASSOCIATED WITH INFECTION AND NOT UNDERLYING MALIGNANCY WHICH CAN BE WORKED UP FURTHER IF SHE HAS PERSISTENT HEMATURIA NOT IN THE SETTING OF INFECTION Lab Data MDM Lab Attestation statement: I reviewed the patient's lab results. Labs: Lab Results 03/14/25 Range/Units 10:34 Urine Color Red A Urine Appearance Hazy Urine pH 6.0 (5.0-9.0) Ur Specific [place] 1.010 (1.005-1.025) Urine Protein 100 (2+) H (Neg-Trace) mg/dL Urine Glucose (UA) Negative (Negative) mg/dL Urine Ketones Negative (Negative) mg/dL Urine Blood Large (3+) H (Negative) Urine Nitrite Negative (Negative) Ur Leukocyte Esterase Large (3+) H (Negative) Urine RBC >20 H (0-2) /HPF Urine WBC >50 H (0-5) /HPF Ur Squamous Epith Cells 0-2 (0-2) /HPF Urine Bacteria 1+ (None Seen) Hyaline Casts 0-2 (0-2) /LPF Discharge Plan Discharge Clinical Impression: Acute UTI Patient Disposition: Home, Self-Care Instructions: Phenazopyridine (By mouth), Urinary Tract Infection in Women (DC) Additional Instructions: DISCHARGE DIAGNOSES: Urinary tract infection likely with small amount of blood. Bladder infection HISTORY OF PRESENTATION: Blood in the urine and burning for 1 day with recent UTI 2 weeks ago completion of 5 day antibiotic course unknown antibiotic EMERGENCY DEPARTMENT COURSE,TESTS, TREATMENTS: While in the ED today you had no fever and reassuring vital signs and physical examination your urine tested positive for blood and signs of infection we have given you your 1st antibiotic dose here DISCHARGE MEDICATIONS: ?[We have made no changes to your regular medication regimen] We have prescribed a new antibiotic for 7 days FOLLOW-UP: ?Call your primary or general physician soon as possible to discuss your symptoms, your ED visit and to discuss follow up plans Call your primary doctor to follow up after the treatment INSTRUCTIONS ?& RETURN PRECAUTIONS: If any symptoms change first call your primary physician, if it is after-hours your primary doctors office should have a provider oncology nurse navigator you can speak with. If the symptoms are severe or very concerning to you then call 911 or return to the ED. Return for serious back pain lower abdominal pain high fevers shaking chills inability urinate or other severe symptoms Your urine will turn even more red or orange tinged due to the medication we have prescribing for pain with urination this is normal Jose Watkins MD Emergency Physician [facility] Prescriptions: New phenazopyridine [Pyridium] 200 mg tablet 200 mg PO BID 2 Days Qty: 4 0RF cefpodoxime 200 mg tablet 200 mg PO BID 7 Days Qty: 14 0RF Rx Instructions: must administer with a meal/food No Action diphenhydramine HCl [Benadryl] 25 mg capsule 25 mg PO TID PRN (Reason: itching) Qty: 20 0RF aspirin [Adult Low Dose Aspirin] 81 mg tablet,delayed release (DR/EC) 81 mg PO DAILY multivitamin [Daily Multi-Vitamin] Tablet 1 tab PO DAILY pantoprazole 40 mg tablet,delayed release (DR/EC) 40 mg PO DAILY losartan 50 mg tablet 50 mg PO BID Qty: 60 5RF atorvastatin 10 mg tablet 10 mg PO DAILY 90 Days Qty: 90 1RF betamethasone dipropionate 0.05 % cream 1 appl topical BID Interventions: ED Discharge Assessment Last Done: 03/14/25 11:27 Discharge Date/Time: 03/14/25 11:40 Print Language: Japanese
--- OUTSIDE RECORDS SUMMARY | 2025-03-14 10:34 | XMS_ITS | Continuity of Care Document ---
Author Organization [facility] Clinical Address [address] [place] [address] Care Team Providers Care Precision Lens Polisher Name Role Phone CAROLINA ALEM Primary Care Provider Assessment No assessment recorded. Plan of Treatment Reminders Order Date Submit Date Provider Last Modified By Organization Details Last Modified Time Details Appointments PT INITIAL EVAL 2024 11:00A M Quang Alejo, PT Not available Not available Not available PT FOLLOW-U P 2024 02:00P M Viki Peterson, PRECISE WINDER Not available Not available Not available PT FOLLOW-U P 2024 11:00A M Quangchucky Manciaek, PT Not available Not available Not available PT FOLLOW-U P 2024 11:00A M Viki Peterson, PRECISE WINDER Not available Not available Not available PT FOLLOW-U P 2024 11:00A M Quang Blancheek, PT Not available Not available Not available PT FOLLOW-U P 2024 10:00A M Quang Blancheek, PT Not available Not available Not available PT FOLLOW-U P 2024 10:00A M Quang Blancheek, PT Not available Not available Not available PT FOLLOW-U P 2024 01:30P M Quang Manciaek, PT Not available Not available Not available PT FOLLOW-U P 2024 02:00P M Viki Peterson, PRECISE WINDER Not available Not available Not available PT FOLLOW-U P 2024 12:30P M Viki Peterson, PRECISE WINDER Not available Not available Not available PT FOLLOW-U P 2024 12:30P M Viki Peterson, PRECISE WINDER Not available Not available Not available PT FOLLOW-U P 2024 10:30A M Quang Alejo, PT Not available Not available Not available PT FOLLOW-U P 2024 01:30P M Quang Alejo, PT Not available Not available Not available PT FOLLOW-U P 2024 02:00P M Viki Peterson, PRECISE WINDER Not available Not available Not available PT FOLLOW-U P 2024 10:30A M Viki Peterson, PRECISE WINDER Not available Not available Not available PT FOLLOW-U P 2024 11:30A M Viki Peterson, PRECISE WINDER Not available Not available Not available PT FOLLOW-U P 2024 10:30A M Viki Peterson, PRECISE WINDER Not available Not available Not available RECHECK 15 2024 10:30A M Alicia Moore MD Not available Not available Not available PT FOLLOW-U P 2024 01:00P M Quang Alejo, PT Not available Not available Not available PT FOLLOW-U P 2024 01:00P M Quang Alejo, PT Not available Not available Not available PT FOLLOW-U P 2024 11:00A M Viki Peterson, PRECISE WINDER Not available Not available Not available PT FOLLOW-U P 2024 10:30A M Quang Alejo, PT Not available Not available Not available Lab None recorded . Referral None recorded . Procedures None recorded . Surgeries None recorded . Imaging XR, pelvis, 1 or 2 view - 2v pelvis. room 3 [facility], [address], [facility] [address], [place], [address], 03/12/2025 13:24:53 Medication Orders None recorded . Patient TargetsNo targets recorded. Patient InstructionsNo instructions recorded. Reason for Referral None Reported. Results Created Date Observation Date Name Description Value Unit Range Abnormal Flag Note LastModifiedBy Organization Detail LastModifiedTime 02/17/20 25 02/16/2025 XR, shoul keri, 2 or more view [email or web address]:/ [email or web address] ?Encry pted=s hAaTro YD8dLq bEUv6g %2BXZw aYqtaq 0bqfl% 2Fg9IQ a4ajBk vP9nXo QUaueC m3YtLR FvZlg JJ8mAn HZtai3 4g0402 AC0KqY 3uGVqG iKiQtr MwF INTERFACE [facility] [address] [facility] [address], [place], [address], 02/16/2025 11:16:42 02/17/20 25 02/16/2025 XR, shoul keri, 2 or more view [email or web address] ?Encry pted=s hAaTro YD8dLq bEUv6g %2BXZw aYqtaq 0bqfl% 2Fg9IQ a4ajBk vP9nXo QUaueC m3YtLR FvZl JJ8Brackenridge HZtai3 8i2895 AC0KqY 3uGVqG iKiQtr MwF INTERFACE [facility] [address] [facility] [address] [address], [place], [address], 02/16/2025 11:16:44 03/12/20 25 03/12/2025 XR, pelvi s, 1 or 2 view [email or web address] ?Encry pted=s hAaTro YD8dLq bEUv6g %2BXZw aYqtaq 0bqfl% 2Fg9IQ a4ajBk vP9nXo QUaueC m3YtLR FvZlg JJ8Brackenridge HZtai3 5i7379 AC0Kla nqAWKO vKiQtr MwF INTERFACE [facility] [address] [facility] [address] [facility] [address], [place], [address], 03/12/2025 11:11:04 03/12/20 25 03/12/2025 XR, pelvi s, 1 or 2 view [email or web address] ?Encry pted=s hAaTro YD8dLq bEUv6g %2BXZw aYqtaq 0bqfl% 2Fg9IQ a4ajBk vP9nXo QUaueC m3YtLR FvZlgJ JJ8mAn HZtai3 9e0238 AC0Kla nqAWKO vKiQtr MwF INTERFACE [facility] [address], [place], [address], 03/12/2025 11:11:06 Result Notes None recorded. Problems Name Problem SNOMED Code Status Onset Date Resolution Date Notes Provider Name and Address Organization Details Recorded Time No complaint s 243263088 Active Status: 'I'; Not Available [facility] 4 09:21:24 Derangeme nt of left shoulder joint 001095533029 Active 2023 Jose Gray PA-C [address], [place], [address] , [facility] 4 09:15:22 Rotator cuff arthropat hy of left shoulder 629047428971 Active 2024 Yogesh Sloan PA-C [address], [place], [address] , [facility] 5 15:39:56 Hip joint prosthesi s present 081955568 Active 2019 Problem Code: Z96.641; Problem Code Type: ICD-10; Status: 'A'; Not Available [facility] 4 11:42:46 Problem Notes None recorded. Procedures Surgical History Date Name Laterality Status Provider Name and Address Organization Details Recorded Time 02/04/20 25 prosthetic arthroplasty of shoulder completed JACKELINE VALDES [facility] 02/10/2025 16:11:53 07/24/20 24 JZShoulder INJ completed Jose Gray PA-C [address], [place], [address], [facility] 07/24/2024 08:43:39 05/21/20 24 Trigger Finger Kenalog Injection completed Jennie Coleman MD [address], [place], [address], [facility] 05/21/2024 14:26:20 12/05/19 24 Cardiovascular Surgery completed JACKELINE LUCIO [facility] 11/25/2024 13:02:28 Hip Surgery completed JACKELINE LUCIO [facility] 11/25/2024 13:02:28 Imaging Results None recorded. Procedure Notes None recorded. Medical Equipment None Reported. Allergies Allergen ID Allergen Name Allergen Category Reaction Reaction Severity Criticality Documentation Date Start Date Code Code System Note Provider Name and Address Organization Details Recorded Time 322613 honey bee venom medicatio n Not available Not available Not available 05/21/2024 56804 7 [facility] 14:19:27 Medications Name Sig Start Date Stop [...] TO AFFECTED AREA 3 TIMES A DAY 01/30 completed Not Available Not Available Not [...] completed Not Available Not Available Not Available nitrofurant oin monohydrate /macrocryst als 100 mg capsule TAKE 1 CAPSULE BY MOUTH TWICE A DAY FOR 5 DAYS active Not Available Not Available No t Available Vitamin D3 active Not Available Not Av ailable Not Available sodium,pota ssium,mag sulfates 17.5 gram-3.13 gram-1.6 gram oral soln DILUTE DRINK 1/2 AT 6-8 PM AND HALF AT 11 PM- 1AM 01/30 completed Not Available Not Available Not Available Vitals Date Recorded Body height Body mass index (BMI) Body weight Provider Name and Address Organization Details Last Updated DateTime 03/12/2025 147.32 cm 24.9 kg/m2 48512.49 g Aliyah Braswell [place] - [place] [facility] 03/12/2025 11:02:55 Social History None recorded. Functional Status None recorded. Mental Status None recorded. Family History Nothing Reported. Medical History Condition Response Allergies/Hayfever N Coronary Artery Disease N Anxiety/Depression N Breathing or lung disorders N Emphysema N Nerve Disorders N Thyroid Problems N COPD N Pacemaker N Anemia N Kidney/Bladder Problems N Vascular Disease N Heart Trouble Y Heart Attack (RI) N Gastrointestinal Disease Y Cholesterol N Diabetes N Autoimmune disease N Bleeding Disorder N Inflammatory Joint disease N Orthotics N Arthritis Y Seizures/Epilepsy N Blood Clot N AIDS/HIV N Congestive Heart Failure (CHF) N Acid Reflux (GERD) N Cancer N Stroke Y Asthma N Circulation Problems N Peripheral Vascular Disease N Sleep Apnea N Hepatitis N Heart Disease N Rheumatoid Arthritis N Arrhythmia N Pulmonary Embolism N Headaches N Fibromyalgia N Hypertension Y Osteoporosis N Gynecological HistoryNo gynecological history recorded. Obstetrics History GPAL:G 0 P 0 0 0 0 Past Encounters Encounter ID Performer Location Encounter Start Date Encounter Closed Date Diagnosis/Indication Diagnosis SNOMED-CT Code Diagnosis ICD10 Code Diagnosis Note [id number] MD CARY Patino 2nd floor [address] [facility] [place] [address] 02/16/2025 10:55:26 03/02/2025 07:45:04 History of reverse prosthetic total arthroplasty of left shoulder [id number] Z96.877 [id number] [facility] [address] [place] [address] 03/12/2025 10:44:53 03/12/2025 15:40:15 Pain of hip region 70472155 M25.551 Rotator cu ff arthropathy of left shoulder 8784991220 3984508 M12.812 Health Concerns Section Related Observation LastModified by Organization Detai ls LastModified Time None Recorded Concern Status LastModified by Organization Details LastModified Time None Recorded Payers Encounter Date Sequence Insurance Name Policy Number Policy Grullon Covered Member ID Grullon Member ID Guarantor Name 03/12/2025 2 [facility] - [facility] [id number] Richa Smith [id number] Richa Smith 03/12/2025 1 MEDICARE B-KS: [facility] Rciha Yudelka Sarah [id number] Richa Smith Notes Date Note Type Note Provider Name and Address Organization Details Recorded Time 03/12/2025 text/html I am seeing the patient today under the supervision of Dr. Pollock who was available but who did not see the patient. Surgery:Left rTSA 02/03/2025 with Interval History: Ms. Smith returns in postoperative follow-up. She reports doing well. She has just begun a physical therapy. She is already discontinued her sling for home use. No concerns at this time. She is status post right hip arthroplasty by Dr. Ewing and she has had some slight discomfort and requesting an x-ray of that today as well. Past family, medical, social history and review of systems have been reviewed and updated on the medical history sheet saved to the patient's chart. A 12-point review of systems is negative x12 except as noted above and/or on the medical history sheet. Examination: Well-healed incision to the left shoulder. Comfortable low-level passive glide. No crepitus. Deltoid is intact. 2+ pulses. No pain with active range of motion of the right hip, some mild weakness to the hip flexor and abductors. 2+ pulses 6 weeks status post X-rays: 2 views of the right hip demonstrate well aligned hip arthroplasty without any changes in comparison to prior films. Impression: Left reverse total shoulder arthroplasty Plan: discussed continued postoperative protocol. Reassurance provided regarding the right hip. Discussed potential return to therapy regarding some strengthening of the hip. For the shoulder, she will follow with Dr. Cano's protocol. [facility] speech recognition electric switch repairer software was used to create portions of this document. An attempt at proofreading has been made to minimize errors. Please call for corrections. Yogesh Sloan PA-C [address], [place], [address], [facility] [facility] 03/12/2025 15:40:13 OBGyn Episode No OBEpisode recorded.
--- OUTSIDE RECORDS SUMMARY | 2025-03-14 10:34 | XMS_ITS | Data Portability ---
Author Organization [facility] Zhang Ferreira [facility], [facility] Address [address] [place] [address] Care Team Providers Care Water Mangle Tender Name Role Phone CAROLINA ALEM Primary Care Provider Assessment Encounter Date Assessment Date Assessment LastModified by Organization Details LastModified Time 07/24/2024 07/24/2024 I am seeing the patient [...] PT INITIAL EVAL 2024 11:00A M Quang Manciaek, PT Not available Not available Not available PT FOLLOW- UP 2024 02:00P M Viki Peterson, MANAGER LOGISTIC Not available Not available Not available PT FOLLOW- UP 2024 11:00A M Quangchucky Manciaek, PT Not available Not available Not available PT FOLLOW- UP 2024 11:00A M Viki Peterson, MANAGER LOGISTIC Not available Not available Not available PT FOLLOW- UP 2024 11:00A M Quangchucky Manciaek, PT Not available Not available Not available PT FOLLOW- UP 2024 10:00A M Quangchucky Manciaek, PT Not available Not available Not available PT FOLLOW- UP 2024 10:00A M Quang Blancheek, PT Not available Not available Not available PT FOLLOW- UP 2024 01:30P M Quangchucky Manciaek, PT Not available Not available Not available PT FOLLOW- UP 2024 02:00P M Viki Blocky, MANAGER LOGISTIC Not available Not available Not available PT FOLLOW- UP 2024 12:30P M Viki Peterson, MANAGER LOGISTIC Not available Not available Not available PT FOLLOW- UP 2024 12:30P M Viki Peterson, MANAGER LOGISTIC Not available Not available Not available PT FOLLOW- UP 2024 10:30A M Quang Blancheek, PT Not available Not available Not available PT FOLLOW- UP 2024 01:30P M Quangchucky Manciaek, PT Not available Not available Not available PT FOLLOW- UP 2024 02:00P M Viki Peterson, MANAGER LOGISTIC Not available Not available Not available PT FOLLOW- UP 2024 10:30A M iVki Peterson, MANAGER LOGISTIC Not available Not available Not available PT FOLLOW- UP 2024 11:30A M Viki Peterson, MANAGER LOGISTIC Not available Not available Not available PT FOLLOW- UP 2024 10:30A M Viki Peterson, MANAGER LOGISTIC Not available Not available Not available RECHECK 15 2024 10:30A M Alicia Moore MD Not available Not available Not available PT FOLLOW- UP 2024 01:00P M Quang Alejo, PT Not available Not available Not available PT FOLLOW- UP 2024 01:00P M Quang Alejo, PT Not available Not available Not available PT FOLLOW- UP 2024 11:00A M Viki Peterson, MANAGER LOGISTIC Not available Not available Not available PT [...] e resista nce of strengt hening exercis es, progres sing to up to 10lbs by 6 months postop - Return to sports: - Swimmin g: begin with breast and side stroke; overhea d strokes may be difficu lt until ROM is improve d - Golf: May begin putting at 3 months; chippin g at 4 months, beginni ng with half swings; petroleum transport driver at 6 months - Tennis/ pickle ball: ball against wall, VERY light rallies at 4 months; no competi tive games until after 6 months - No contact sports for at least 6 months 2024 025 [email or web address] Not available 03/02/2025 07:45:05 Procedures None recorde d. Surgeries total shoulde r arthrop lasty (SURG) 2024 025 [email or web address] [facility] Anesthesiology (Scheduling), [address] [place], [address], 12/03/2024 11:16:52 Imaging XR, pelvis, 1 or 2 view - 2v pelvis. room 3 2024 025 [email or web address] e2 [facility], [address], [place], [address], 03/12/2025 13:24:53 XR, shoulde r, 2 or more view - L: rtsa sx 3 view rm 214 2024 025 [email or web address] [facility], [address], [place], [address], 03/02/2025 07:45:04 XR, shoulde r, 2 or more view - rm 314 4v left shoulde r 2023 024 cristina [facility], [address], [place], [address], 07/24/2024 10:57:00 Medication Orders Colace 100 mg capsule 2024 025 [id number], [address] [place], [address], 02/16/2025 11:07:34 acetami nophen 500 mg tablet 2024 025 [facility], [address] [place], [address], 01/30/2025 12:36:29 aspirin 325 mg tablet 2024 025 [facility], [address] [place], [address], 02/16/2025 11:07:14 morphin e 15 mg immedia te release tablet 2024 025 [facility], [address], [place], [address], 02/16/2025 11:07:38 Patient TargetsNo targets recorded. Patient [...] at 4 months, beginning with half swings; petroleum transport driver at 6 months - Tennis/pickle ball: [...] a4ajBk vP9nXo QUaueC m3YtLR FvZlgJ JJ8mAn HZtai3 2y0184 AC0Kqa nuEUKe iKiQtr MwF INTERFACE [facility] [address], [address], 07/24/2024 08:25:46 11/25/19 25 11/18/2024 kiran ALVAREZ, w/o contr ast No observ ation record ed. [facility] (Mri) [address] [place], [address], 11/25/2024 15:38:46 01/13/20 25 01/12/2025 CT, kiran saavedra, w/o contr ast No observ ation record ed. [email or web address] [facility] [place] [address], [place], [address], 01/14/2025 09:14:12 02/04/20 25 02/03/2025 XR, kiran saavedra, 1 view No observ ation record ed. [email or web address] [facility] [address], [place], [address], 02/04/2025 09:18:06 02/17/20 25 02/16/2025 XR, kiran saavedra, 2 or more view [email or web address] ?Encry pted=s hAaTro YD8dLq bEUv6g %2BXZw aYqtaq 0bqfl% 2Fg9IQ a4ajBk vP9nXo QUaueC m3YtLR FvZlgJ JJ8mAn HZtai3 7j5670 AC0KqY 3uGVqG iKiQtr MwF INTERFACE [facility] [address], [place], [address], 02/16/2025 11:16:42 02/17/20 25 02/16/2025 XR, kiran saavedra, 2 or more view [email or web address] ?Encry pted=s hAaTro YD8dLq bEUv6g %2BXZw aYqtaq 0bqfl% 2Fg9IQ a4ajBk vP9nXo QUaueC m3YtLR FvZlgJ JJ8mAn HZtai3 6j1190 AC0KqY 3uGVqG iKiQtr MwF INTERFACE [facility] [address], [place], [address], 02/16/2025 11:16:44 03/12/20 25 03/12/2025 XR, pelvi s, 1 or 2 view http:/ [email or web address] ?Encry pted=s hAaTro YD8dLq bEUv6g %2BXZw aYqtaq 0bqfl% 2Fg9IQ a4ajBk vP9nXo QUaueC m3YtLR FvZlgJ JJ8mAn HZtai3 1o6333 AC0Kla nqAWKO vKiQtr MwF INTERFACE [facility] [address], [place], [address], 03/12/2025 11:11:04 03/12/2003/12/2025 XR, pelvi s, 1 or 2 view http:/ [email or web address] ?Encry pted=s hAaTro YD8dLq bEUv6g %2BXZw aYqtaq 0bqfl% 2Fg9IQ a4ajBk vP9nXo QUaueC m3YtLR FvZlgJ JJ8mAn HZtai3 7n6000 AC0Kla nqAWKO vKiQtr MwF INTERFACE [facility] [address], [place], [address], 03/12/2025 11:11:06 Result Notes None recorded. Problems Name Problem SNOMED Code Status Onset Date Resolution Date Notes Provider Name and Address Organization Details Recorded Time No complaint s 348311079 Active Status: 'I'; Not Available [facility] 4 09:21:24 Derangeme nt of left shoulder joint 660315314659 Active 2023 Jose Gray PA-C [address], [place], [address] , [facility] 4 09:15:22 Rotator cuff arthropat hy of left shoulder 495259632929 Active 2024 Yogesh Sloan PA-C [address], [place], [address] , [facility] 5 15:39:56 Hip joint prosthesi s present 971756485 Active 2019 Problem Code: Z96.641; Problem Code Type: ICD-10; Status: 'A'; Not Available [facility] 4 11:42:46 Problem Notes None recorded. Procedures Surgical History Date Name Laterality Status Provider Name and Address Organization Details Recorded Time 02/04/20 25 prosthetic arthroplasty of shoulder completed JACKELINE VALDES [facility] 02/10/2025 16:11:53 07/24/20 24 JZShoulder INJ completed Jose Gray PA-C [address], [place], [address], [facility] 07/24/2024 08:43:39 05/21/20 24 Trigger Finger Kenalog Injection completed Jennie Coleman MD [address], [place], [address], [facility] 05/21/2024 14:26:20 12/05/19 24 Cardiovascular Surgery completed JACKELINE VALDES [facility] 11/25/2024 13:02:28 [facility] 11/25/2024 13:02:28 Imaging Results Imaging Date Name Status LastModified by Organiz ation Details LastModified Time 07/24/2024 XR, shoulder, 2 or more view completed INTERFACE [facility] [address], [place], [address], 07/24/2024 08:25:46 11/18/2024 MRI, shoulder, w/o contrast completed [facility] ([facility]) [address], [place], [address], 11/25/2024 15:38:46 01/12/2025 CT, shoulder, w/o contrast [place] [address] [facility] [place] [address], [place], [address], 01/14/2025 09:14:12 02/03/2025 XR, shoulder, 1 view completed [address] [facility] [address], [place], [address], 02/04/2025 09:18:06 02/16/2025 XR, shoulder, 2 or more view completed INTERFACE [facility] [address], [place], [address], 02/16/2025 11:16:42 02/16/2025 XR, shoulder, 2 or more view completed INTERFACE [facility] [address], [place], [address], 02/16/2025 11:16:44 03/12/2025 XR, pelvis, 1 or 2 view completed INTERFACE [facility] [address], [place], [address], 03/12/2025 11:11:04 03/12/2025 XR, pelvis, 1 or 2 view completed [facility] [address], [place], [address], 03/12/2025 11:11:06 Procedure Notes None recorded. Medical Equipment None Reported. Allergies Allergen ID Allergen Name Allergen Category Reaction Reaction Severity Criticality Documentation Date Start Date Code Code System Note Provider Name and Address Organization Details Recorded Time 306931 honey bee venom medicatio n Not available Not available Not available 05/21/2024 62219 7 RxNorm MARY doe [place] - [facility] 14:19:27 Medications Name Sig Start Date Stop [...] Updated DateTime 07/24/2024 147.32 cm 24.9 kg/m2 70744.49 g Sin Cardenas [facility] 07/24/2024 08:17:08 Date Recorded Body height Body mass index (BMI) Body weight Provider Name and Address Organization Details Last Updated DateTime 11/25/2024 147.32 cm 24.9 kg/m2 27450.[address] [facility] 11/25/2024 13:02:35 Date Recorded Body height Body mass index (BMI) Body weight Body temperature Oxygen saturation Oxygen saturation in Arterial blood by Pulse oximetry Respiratory rate Heart rate Provider Name and Address Organization Details Last Updated DateTime 147.32 cm 24.9 kg/m2 75349.4 9 g 97.6 [degF] 98 % 98 % 98 /min 82 /min [facility] 11:52:23 Date Recorded Body height Body mass index (BMI) Body weight Body temperature Provider Name and Address Organization Details Last Updated DateTime 02/16/2025 147.32 cm 24.9 kg/m2 87938.49 g 98.3 [degF] JACKELINE VALDES [facility] 02/16/2025 11:00:15 Date Recorded Body height Body mass index (BMI) Body weight Provider Name and Address Organization Details Last Updated DateTime 03/12/2025 147.32 cm 24.9 kg/m2 09812.49 g Aliyah Braswell [facility] 03/12/2025 11:02:55 Social History None recorded. Functional Status None recorded. Mental Status None recorded. Family History Nothing Reported. Medical History Condition Response Coronary Artery Disease N Anxiety/Depression N Emphysema N COPD N Pacemaker N Vascular Disease N Heart Trouble Y Gastrointestinal Disease Y Autoimmune disease N Inflammatory Joint disease N Orthotics N Arthritis Y Blood Clot N Acid Reflux (GERD) N Cancer N Stroke Y Circulation Problems N Rheumatoid Arthritis N Arrhythmia N Headaches N Fibromyalgia N Allergies/Hayfever N Breathing or lung disorders N Nerve Disorders N Thyroid Problems N Kidney/Bladder Problems N Anemia N Heart Attack (NM) N Cholesterol N Diabetes N Bleeding Disorder N Seizures/Epilepsy N AIDS/HIV N Congestive Heart Failure (CHF) N Asthma N Peripheral Vascular Disease N Sleep Apnea N Hepatitis N Heart Disease N Pulmonary Embolism N Hypertension Y Osteoporosis N Gynecological HistoryNo gynecological history recorded. Obstetrics History GPAL:G 0 P 0 0 0 0 Past Encounters Encounter ID Performer Location Encounter Start Date Encounter Closed Date Diagnosis/Indication Diagnosis SNOMED-CT Code Diagnosis ICD10 Code Diagnosis Note [id number] MD [facility] [address] [place] [place] [address] 05/21/2024 13:54:48 06/05/2024 12:37:40 Acquired trigger finger of left middle finger 1333879479 46232 M65.825 [id number] MARLIN Santizo [address] [place] [address] 07/24/2024 08:09:02 08/13/2024 15:14:37 Pain of left shoulder joint 2581786167 8500920 M25.810 [id number] MD CARY [facility] [address] [place] [address] 11/25/2024 12:56:46 12/04/2024 11:21:49 Osteoarthritis of left glenohumeral joint 6857133482 472214 M19.527 [id number] MD CARY [facility]ino [address] [place] [address] 01/30/2025 11:29:12 02/16/2025 14:31:16 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 4981716599 668641 M75.451 [id number] MD CARY [facility] [address] [place] [place] [address] 02/16/2025 10:55:26 03/02/2025 07:45:04 History of reverse prosthetic total arthroplasty of left shoulder 6472439690 8544741 Z96.752 [id number] [facility] [address] [place] [address] 03/12/2025 10:44:53 03/12/2025 15:40:15 Pain of hip region 48249286 M25.551 Rotator cu ff arthropathy of left shoulder 0245228763 9875713 M12.812 Health Concerns Section Related Observation LastModified by Organization Detai ls LastModified Time None Recorded Concern Status LastModified by Organization Details LastModified Time None Recorded Advance Directives Directive None Recorded Payers Encounter Date Sequence Insurance Name Policy Number Policy Grullon Covered Member ID Grullon Member ID Guarantor Name 07/24/2024 2 [employer] - [employer] [id number] Richa M Pijar [id number] Richa M Pijar 07/24/2024 1 [place] [facility] [employer] Richa M Pijar [id number] Richa M Pijar 11/25/2024 2 [employer] - [employer] [id number] Richa M Pijar [id number] Richa M Pijar 11/25/2024 1 [place] [facility] [employer] [facility] Ricah M Pijar [id number] Richa M Pijar 01/30/2025 2 [employer] - [employer] [id number] Richa M Pijar [id number] Richa M Pijar 01/30/2025 1 [place] [facility] [employer] [facility] Richa M Pijar [id number] Richa M Pijar 02/16/2025 2 [employer] - [employer] [id number] Richa M Pijar [id number] Richa M Pijar 02/16/2025 1 [place] [facility] [employer] [facility] Richa M Pijar [id number] Richa M Pijar 03/12/2025 2 [employer] - [employer] [id number] Richa M Pijar [id number] Richa Jha Sarah 03/12/2025 1 [place] [facility] [employer] Richa Smith [id number] Richa Smith Notes Date Note Type Note Provider Name and Address Organization Details Recorded Time 5 text/html Issue: Left shoulder large to [...] the Left shoulder ordered and obtained at [facility] 07/24/2024 were reviewed during the visit. These demonstrate good preservation of glenohumeral joint space. Type II acromion. At least moderate AC arthrosis. No proximal migration humeral head. A pacemaker overlies the left chest. Left shoulder MRI performed at [facility] 11/18/2024 independently reviewed by me NCIS during [...] clavicle edema. Type II acromion. Impression: 79-year-old hysp-idwr-iooermdg woman with large, retracted rotator cuff tear. [...] within a month of anticipated surgical date. [employer] speech recognition stations superintendent software was used to create portions of this document. An attempt at proofreading has been made to minimize errors. Please call for corrections. Alicia Moore MD [address] [place], [place] [address], [place], [address], [facility] 11/25/2024 13:45:08 5 text/html [...] the Left shoulder ordered and obtained at [facility] 07/24/2024 were reviewed during the visit. These demonstrate good preservation of glenohumeral joint space. Type II acromion. At least moderate AC arthrosis. No proximal migration humeral head. A pacemaker overlies the left chest.Left shoulder MRI performed at [facility] 11/18/2024 independently reviewed by me NCIS during [...] scan of the left shoulder performed at [facility] 01/12/2025 independently reviewed by me and uploaded to [employer] planning software, which indicates 1 degree glenoid retroversion, 20 degrees of superior inclination, 54% posterior humeral subluxation. Impression: 79-year-old cxou-sgrf-lybfjtpl woman with large, retracted rotator cuff tear. [...] condition, to please contact our office immediately. [employer] speech recognition stations superintendent software was used to create portions of this document. An attempt at proofreading has been made to minimize errors. Please call for corrections. Alicia Moore MD [address] [place] [address] Suite [facility], [place], [address], [facility] 01/30/2025 12:37:12 5 text/html Surgery: Left shoulder [...] the left shoulder ordered and obtained at [facility] today were reviewed during the visit. These demonstrate a reduced glenohumeral joint. Small bone graft evident between baseplate and [place] glenoid on Grashey view with good correction of preoperative superior inflammation. Central post and all peripheral screws have excellent purchase within the glenoid vault. No evidence for scapular fracture, glenoid notching, or component loosening. Impression: 79-year-old laen-kuok-uuwjrdrk woman, now 2 weeks out from surgery [...] the 3 month visit to assess healing. [facility] speech recognition stations superintendent software was used to create portions of this document. An attempt at proofreading has been made to minimize errors. Please call for corrections. Alicia Moore MD [address] [place] [address] Suite [facility], [place], [address], [facility] 02/16/2025 11:45:17 5 text/html I am seeing the patient today under the supervision of Dr. Pollock who was available but who did not see the patient. Surgery:Left rTSA 02/03/2025 with Interval History: Ms. Pijar returns in postoperative follow-up. She reports doing [...] she will follow with Dr. Cano's protocol. [facility] speech recognition stations superintendent software was used to create portions of this document. An attempt at proofreading has been made to minimize errors. Please call for corrections. Yogesh Sloan PA-C [address] [facility] [address], [place], [address], [facility] 03/12/2025 15:40:13 OBGyn Episode No OBEpisode recorded.
--- NOTE | 2025-03-14 10:35 | PC.NURSE ---
Patient A&O x 3. Patient ambulatory w/o assistive device. Patient presents to ED c/o dysuria, hematuria, and urinary frequency. Patient states she was seen by PCP for UTI 2 weeks ago and has completed ABT but still has symptoms. Patient c/o lower abdomen/suprapubic pain rated 3/10. VSS and up to date. UA collected/sent to lab, urine dark jay colored and cloudy. Plan of care on going
[2025-03-14] MEDS: Phenazopyridine HCL 100 MG TABLET PO (10:45)
[2025-03-14 11:08] LABS: Appearance Urine Hazy; Color Urine Red
[2025-03-14 11:09] LABS: Glucose Urine UA Negative (Negative); Leukocyte Esterase Urine Large (3+) (Negative); Nitrite Urine Negative (Negative); UMIC TRIGGER UACC YES; Urine Blood Large (3+) (Negative); Urine Ketones Negative (Negative); Urine Protein 100 (2+) mg/dL (Neg-Trace)
[2025-03-14 11:10] LABS: Bacteria Urine 1+ (None Seen); Hyaline Casts Urine 0-2 /LPF (0-2); RBC Urine >20 /HPF (0-2); Squamous Epithelial Cell Urine 0-2 /HPF (0-2); UACC Culture Trigger YES; WBC Urine >50 /HPF (0-5)
[2025-03-14 11:22] VITALS: BP 133/61; PULSE 86; RESP 13; TEMP 36.7; O2SAT 96
[2025-03-14 11:27] VITALS: BP 133/61; PULSE 86; RESP 13; TEMP 36.7; O2SAT 96
[2025-03-14] MEDS: cefuroxime axetiL 250 MG TABLET PO (11:32)
== END 2025-03-14 11:40 | disposition home or self-care (01) ==
PROVIDERS: Emergency Provider Emergency Medicine; PCP Internal Medicine
DX: N39.0 Urinary tract infection, site not specified (principal); R31.9 Hematuria, unspecified; Z79.899 Other long term (current) drug therapy
CPT/HCPCS: 81001; 81003; 87086; 87088; 87186; 99283; 99284

== ENCOUNTER 2025-06-17 10:18 | Outpatient (REF) | payer MEDICARE, OTHER, SELFPAY ==
--- NOTE | ~2025-06-17 | MM_ITS ---
EXAMINATION: MM SCREENING DIGITAL BREAST TOMOSYNTHESIS, BILATERAL CLINICAL INFORMATION: Screening. Asymptomatic. COMPARISON: Comparison made to multiple prior, most recent June 11, 2024, and most remote July 04, 2018. TECHNIQUE: Digital breast tomosynthesis is performed in both the craniocaudal and mediolateral oblique views along with computer-aided detection (CAD). FINDINGS: BREAST COMPOSITION: There are scattered areas of fibroglandular density (ACR BI-RADS breast composition Category b). BILATERAL BREASTS: No significant masses, suspicious calcifications or other abnormalities are seen in either breast. MM/MM tomosynthesis screening BI IMPRESSION: BILATERAL BREASTS: Negative, no mammographic evidence of malignancy. Normal interval follow-up is recommended in 12 months. ASSESSMENT: BI-RADS 1 - Negative RECOMMENDATION: Routine annual mammography screening. FOLLOW-UP: 1 year F/U This examination should not preclude the clinical evaluation of a suspicious palpable abnormality. This patient's information was entered into a reminder system with a target due date for their next mammogram. Electronically signed by: Catrachita Pereira MD 06/22/2025 08:07 PM EDT
--- OUTSIDE RECORDS SUMMARY | 2025-06-17 10:59 | XMS_ITS | Patient Health Record ---
Author Organization [facility] Address [address] [place] [address] Care Team Providers Care Certified Nurse Name Role Phone Javon Baxter MD Primary Care Provider Duncan Ferrell Unavailable [phone] Reason For Referral No Information Plan Of Treatment No Information Insurance Providers Payer Name Payer Address Payer Phone Subscriber Number Group Number Insured Name Patient Relationship to Insured Coverage Start Date Coverage End Date [facility] [address] [place] [address] [id number] MARIO PERKINS Self - patient is the insured Medical (General) History Medical History History ICD Code colonoscopy 06-17-2003 colon polyp. hypertension Surgical History Surgery Date(Month/Year) tubal ligation eye surgery
--- OUTSIDE RECORDS SUMMARY | 2025-06-17 10:59 | XMS_ITS | Clinical Summary ---
Author Organization [facility] Address [address] [place] [address] Phone Care Team Providers Care Construction Stonemason Name Role Phone Javon Baxter MD Primary Care Provider Antoine Resendez MD Unavailable [phone] Alyssa Haile MD Unavailable [phone] Javon Baxter MD Unavailable Gloria Land MD Unavailable Allergies Active Allergy Reactions Criticality Noted Date Comments Lisinopril Cough High 08/05/2019 Other Maculopapular Rash Medium 09/03/2017 Bee stings Medications calcium carbonate-vitam in D3 1,500 mg (600 mg elemental)-200 units Tab Take 1 tablet by mouth daily. 750mg calcium Active aspirin 81 MG EC tablet Take 81 mg by mouth daily. Active multivitamins-m inerals-folic dmyk-wjiuczk-yr tein (COMPLETE SENIOR) 0.4 mg-300 mcg- 250 mcg Tab Take 1 tablet by mouth daily. Active amoxicillin (AMOXIL) 500 MG capsule Take 500 mg by mouth. Prior to dental procedure. 03/31/20 22 Active pantoprazole (PROTONIX) 40 MG tabletIndicatio ns:Gastroesopha geal reflux disease, unspecified whether esophagitis present TAKE 1 TABLET DAILY 90 tablet 3 11/19/19 25 Active diphenhydrAMINE (BENADRYL) 25 mg tablet Take 25 mg by mouth as needed. 11/14/19 25 Active atorvastatin (LIPITOR) 10 MG tabletIndicatio ns:Hyperlipidem ia TAKE 1 TABLET DAILY 90 tablet 3 05/26/20 25 Active losartan (COZAAR) 50 MG tabletIndicatio ns:Essential hypertension TAKE 1 TABLET TWICE A DAY 180 tablet 3 05/26/20 25 Active atorvastatin (LIPITOR) 10 MG tabletIndicatio ns:Hyperlipidem ia Take 1 tablet (10 mg total) by mouth daily. 90 tablet 3 06/02/20 24 025 Discontinued losartan (COZAAR) 50 MG tabletIndicatio ns:Essential hypertension Take 1 tablet (50 mg total) by mouth 2 (two) times a day. 180 tablet 3 07/14/20 24 025 Discontinued betamethasone dipropionate 0.05 % creamIndication s:Poison cira Apply topically daily as needed. 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 She felt that it was related to food and is requesting a POC glucose to be completed which was in the office and noted at 132. I encouraged to increase fluid and to follow-up with her fur mixer. Allergic contact dermatitis due to other agents 04/09/2024 Assessment & Plan (04/09/2024 1:42 PM EDT): Erythematous patches with vesicles which have been resolving - over abdomen with right forearm -triamcinolone 0.5% cream TID -medrol dose pack -f/u if symptoms do not improve or worsen Dizziness and giddiness 03/14/2019 Angiomyolipoma of left kidney 10/24/2018 Essential hypertension 09/03/2017 Assessment & Plan (09/03/2017 5:07 PM EDT): stable on medication Knee pain 09/03/2017 Hyperlipidemia 09/03/2017 Aortic valve stenosis 09/03/2017 Assessment & Plan (09/03/2017 5:09 PM EDT): pt had recent echo which showed mod aortic stenosis . not symptomatic Osteoarthritis 09/03/2017 Protrusion of intervertebral disc of lumbosacral region 09/03/2017 Encounter for screening mamm ogram for malignant neoplasm of breast 09/03/2017 Overview (07/02/2024): 06/11/24 birads 2 Age-related osteoporosis wit hout current pathological fracture 09/03/2017 Assessment & Plan (06/09/2025 9:55 AM EDT): 80 y.o. woman with osteoporosis of the femoral neck on bone density. She has a hx of traumatic patellar fracture. There is no family hx hip fracture. Her son has been dx with osteoporosis. She has significant reflux. She has seen the dentist & all was ok. She getting a good amount of calcium in via diet and supplement. Based on her last bone density, her 10 yr risk of fracture is 6.8% hip, 19% any osteoporotic fracture if do not include previous fracture given it was traumatic & 9.1% risk of hip, 27% risk of any osteoporotic fracture calculating in to include the patellar fracture. Given reflux would avoid oral bisphosphonates, so I have suggested IV zoledronic acid, which she is interested in having done, although somewhat uncertain & would like to hold off until things settle down. I have asked her to call us when she would like to get that scheduled. She will also be scheduling bone density in the fall. She is aware of the importance of avoiding falls. Assessment & Plan (12/02/2024 1:31 PM EST): 79 y.o. woman with osteoporosis of the femoral neck on bone density. She has a hx of traumatic patellar fracture. There is no family hx hip fracture. Her son has been dx with osteoporosis. She has significant reflux. She has seen the dentist & all was ok. She is probably getting excessive calcium in via diet and supplement. Advised to check amount of calcium in MVI & adjust supplement to target a total of 1200 mg via diet and supplement - would definitely cut back to no more than 1/day of supplement. Her 10 yr risk of fracture is 6.8% hip, 19% any osteoporotic fracture if do not include previous fracture given it was traumatic & 9.1% risk of hip, 27% risk of any osteoporotic fracture calculating in to include the patellar fracture. Given reflux would avoid oral bisphosphonates, so suggested IV zoledronic acid, which she is interested in having. We have elected to hold off on rx until after upcoming shoulder replacement so will schedule follow up in 6 months & proceed at that time if all is ok. Assessment & Plan (10/14/2024 1:37 PM EST): 79 y.o. woman with osteoporosis of the femoral neck on bone density. She has a hx of traumatic patellar fracture. There is no family hx hip fracture. Her son has been dx with osteoporosis. She has significant reflux. She has some ongoing dental issues, she will be seeing dentist in November to address. Sh eis getting some calcium in via diet/supplement. Advised her to confirm the amount of calcium in her supplement. Will check labs today. She will see dentist as planned. She will follow up after that visit to determine plan. Reviewed normal bone physiology across the lifespan. Reviewed role of adequate calcium & vitamin D, weight-bearing exercise, avoiding falls and pharmacologic rx with risks/benefits. Advised her to refer to UpToDate patient information @ calcium & vitamin D & prevention and treatment of osteoporosis, beyond the basics for additional information. Encounters Date Type Department Care Team Description 06/09/2025 8:40 AM EDT Office Visit [facility] [address] [place] [address] Vanessa Polo MD Age-related osteoporosis without current pathological fracture (Primary Dx) 05/26/2025 Refill [facility] Internal Medicine [address] [place] [address] Javon Baxter MD Medication Refill from Last 3 Months Immunizations Immunization Administration Dates Next Due COVID-19 (Pre-08/27) Moderna Vaccine, mRNA, PF 01/18/2021,12/21/2020 INFLUENZA, SPLIT VIRUS, TRIVALENT PF 07/23/2020 INFLUENZA, SPLIT VIRUS, TRIV ALENT W/ PRESERVATIVE IM 08/23/2012,10/10/2011 Influenza High-Dose Quadriva lent Preservative Free IM 08/08/2021 Influenza High-Dose Trivalen t Preservative Free IM 08/14/2024,09/12/2019,08/27/2018,09/03,07/13/2016,10/14/2015,08/18/2014 ,09/26/2013,08/31/2010,08/17/2009 Influenza Quadrivalent Adjuv anted Preservative Free IM 08/07/2023 Influenza, Unspecified Formulation 09/04/2022 Pneumococcal conjugate PCV13 04/24/2017 Pneumococcal polysaccharide PPSV23 03/25/2012 RSV Vaccine (monovalent, adjuvanted) 09/11/2023 Td (adult) 5 Lf Tetanus Toxo id, PF, Adsorbed 11/15/2010 Zoster live 10/05/2008 Zoster recombinant 12/04/2019,09/30/2019 Family History Medical History Relation Comments Heart disease Father Heart failure Sister Osteoporosis Son Hip fracture Neg Hx Relation Status Comments Brother Alive Daughter Father (Age 50) Mother (Age 83) Sister (Age 65) chf Son Social History Tobacco Use Types Packs/Day Years Used Date Smoking Tobacco: Former Cigarettes 0.5 5 0 03/18/1965 - 11/05/1967 Smokeless Tobacco: Never Tobacco Cessation:Counseling Given: Not Answered Alcohol Use Standard Drinks/Week Comments Yes 3 (1 standard drink = 0.6 oz pur e alcohol) Education Answer Date Recorded Are you interested in more education? Not on may e 03/02/2023 Are you concerned about learning? Not on file 03/02/2023 No 03/02/2023 No 03/02/2023 Digital Access Answer Date Recorded No 04/02/2023 No 04/02/2023 Reliable internet access at home? Not on file 04/02/2023 Device with a working camera? Not on file Intimate Partner Violence Answer Date R ecorded Denied Basic Needs Not on file 08/14/2024 In the past 12 months have y ou been in a relationship with a person who hurts, threatens, or tries to control you? No 08/14/2024 Worried food would run out Not on file 08/14 In the past 12 months have y ou been in a relationship with a person who hurts, threatens, or tries to control you? No 08/14/2024 Comments No Sex and Gender Information Value Date Recorded Sex Assigned at Female 10/16/2019 2:05 PM EST Legal Sex Female 10:08 PM EDT Gender Identity Female 10/16/2019 2:05 PM EST Sexual Orientation Straight 10/16/2019 2: 05 PM EST Last Filed Vital Signs Vital Sign Reading Time Taken Comments Blood Pressure 132/66 06/09/2025 8:39 AM EDT Pulse 80 06/09/2025 8:39 AM EDT Temperature 36.6 C (97.8 F) 01/13/2025 2:09 PM EDT Respiratory Rate 17 06/09/2025 8:39 AM EDT Oxygen Saturation 98% 06/09/2025 8:39 AM EDT Inhaled Oxygen Concentration - - Weight 55.7 kg (122 lb 12.8 oz) 06/09/2025 8:39 AM EDT Height 142 cm (4' 7.91 ) 06/09/2025 8:39 AM EDT Body Mass Index 27.62 06/09/2025 8:39 AM EDT Plan of Treatment Upcoming Encounters Date Type Department Care Team (Late st Contact Info) Description 08/26/2025 11:00 AM EDT Office Visit [facility] [address] [place] [address] Javon Baxter MD [address] [place] [address] 12/17/2025 1:00 PM EST Office Visit [facility] [address] [place] [address] [place] [address] Vanessa Polo MD [address] [place] [id number] [email or web address] Health Maintenance Due Date Last Done Comments Adult Td,Tdap Booster 11/15/2020 11/15/2010 COVID-19 VACCINE ( season) 2024 05/26/2022, 08/31/2021, 01/18/2021, Additional history exists DEPRESSION SCREENING 08/14/2025 08/14/2024 BLOOD PRESSURE 12/10/2025 06/09/2025 CREATININE LEVEL 01/13/2026 01/13/2025, 08/2024, 08/14/2024, Additional history exists POTASSIUM LEVEL 01/13/2026 01/13/2025, 10/05, 07/25/2024, Additional history exists FOLLOW UP BONE DENSITY TESTING 08/14/2026 08/14/2024, 06/26/2023, 11/11/2020, Additional history exists LIPID PANEL 07/25/2029 07/25/2024, 07/07, 07/25/2024, Additional history exists PNEUMOCOCCAL VACCINES (50+ years) Completed 04/24/2017, 03/25/2012 HEPATITIS C SCREENING Completed 11/19/2019, 020 ZOSTER VACCINES Completed 12/04/2019, 09/06, 10/05/2008 RSV VACCINE Completed 09/11/2023 OSTEOPOROSIS SCREENING INITIAL (ONE-TIME) Completed 08/14/2024, 06/26/2023, 11/11/2020, Additional history exists SMOKING STATUS SCREENING (Once After 26 Yrs) Completed 06/09/2025 HEPATITIS A VACCINES Aged Out No long er eligible based on patient's age to complete this topic HIB VACCINES Aged Out No longer eligi ble based on patient's age to complete this topic MENINGOCOCCAL VACCINES (ACWY) Aged Out No longer eligible based on patient's age to complete this topic MENINGOCOCCAL VACCINES (B) Aged Out N o longer eligible based on patient's age to complete this topic Medical Devices Not on file Procedures Procedure Name Priority Date/Time Associated Diagnosis Comments BASIC METABOLIC PANEL Routine 01/13/2025 2:55 PM EDT Essential hypertension Impaired fasting glucose BD DXA SCREENING Routine 08/14/2024 11:2 3 AM EDT Postmenopausal estrogen deficiency OUTSIDE HDL Routine 07/25/2024 HEPATITIS C ANTIBODY, QUALITATIVE Routine 11/19/2019 from Last 3 Months or Most Recently Relevant to Health Maintenance Results * (ABNORMAL) Basic metabolic panel (01/13/2025 2:55 PM EDT) Pathologist [facility] SODIUM 139 133 - 146 mmol/L [facility] CHLORIDE 102 96 - 108 mmol/L [facility] POTASSIUM 4.5 3.3 - 5.1 mmol/L [facility] CO2 25 21 - 35 mmol/L [facility] BUN 16 6 - 19 mg/dL [facility] CREATININE 0.70 0.5 - 1.5 mg/dL [facility] GLUCOSE 121(H) 70 - 99 mg/dL [facility] CALCIUM 9.8 8.4 - 10.3 mg/dL [facility] EGFR 88 >59 mL/min/1.7 3m2 [facility] Comment:Estimated glomerular filtration rate calculated using the CKD-EPI refit equation. ANION GAP 17 10 - 20 mmol/L [facility] Blood 01/13/2025 2:55 PM EDT 01/13/2025 3:00 PM EDT Javon Baxter MD LAB BLOOD ORDERABLES Final Re sult [address] [address] * Outside HDL (07/25/2024) HDL - External 72 40 - 80 mg/dL EXTERNAL NON-INTERFACED REF LAB Historical Provider LAB BLOOD ORDERABLES Deana l Result EXTERNAL NON-INTERFACED REF LAB * OUTSIDE BONE DENSITY SCREENING (11/11/2020) BONE DENSITY SCREENING - EXTERNAL osteopenia Historical Provider HEALTH MAINTENANCE Final Result * Hepatitis C antibody, qualitative (11/19/2019) Javon Baxter MD LAB BLOOD ORDERABLES Edited R esult - Final from Last 3 Months or Most Recently Relevant to Health Maintenance Insurance MEDICARE PART A & B [facility] MEDICARE SUPPLEMENT MEDICARE PART A & B [facility] MEDICARE SUPPLEMENT MEDICARE PART A & B Member Subscriber Plan / Payer ( fective 2011-Present) Name:Richa Smith Member ID:[id number] Relation to Subscriber:Self Name:Richa Smith Subscriber ID:[id number] Payer ID:[id number] Group ID:Not on file Type:Medicare Address: [employer] [address] MEDICARE SUPPLEMENT MEDICARE PART A & B [employer] MEDICARE SUPPLEMENT MEDICARE PART A & B [employer] MEDICARE SUPPLEMENT MEDICARE PART A & B [facility] MEDICARE SUPPLEMENT MEDICARE PART A & B [facility] [employer] MEDICARE SUPPLEMENT MEDICARE PART A & B [facility] MEDICARE SUPPLEMENT MEDICARE PART A & B [facility] [employer] MEDICARE SUPPLEMENT Care Teams Construction Stonemason Relationship Specialty Start Date End Date Javon Baxter MD [address] [place] [address] [email or web address] PCP - General Internal Medicine 09/03/17 Antoine Resendez MD [address] [place] [id number] Cardiology 02/03/20 Alyssa Haile MD [address] [place] [phone] Obstetrics and Gynecology 11/02/20 Javon Baxter MD [address] [place] [address] [email or web address] Insurance Assigned Provider 02/09/24 Gloria Land MD [address] [place] [address] [address] [place] [address] Neurology 02/04/24 Additional Source Comments The information contained in this document represents components of the legal health record. It is not the complete legal health record.[facility]
== END 2025-06-17 10:19 | disposition home or self-care (01) ==
LOC: HO.MAMMO 10:18
PROVIDERS: PCP Internal Medicine; Visit Provider Internal Medicine
DX: Z12.31 Encounter for screening mammogram for malignant neoplasm of breast (principal)
CPT/HCPCS: 77063; 77067

== ENCOUNTER → 2025-06-17 10:30 | Outpatient (BNV) | payer MEDICARE, OTHER, SELFPAY | PROVIDERS: PCP Internal Medicine; Visit Provider Radiology Body Imaging | DX: Z12.31 Encounter for screening mammogram for malignant neoplasm of breast (principal) | CPT/HCPCS: 77063; 77067 ==

== ENCOUNTER 2025-07-28 10:33 | Outpatient (AMB) | payer MEDICARE, OTHER, SELFPAY ==
--- NOTE | 2025-07-28 10:42 | A.OFFVIS_ITS ---
Vital Signs 07/28/25 10:43 Height 4 ft 11 in Weight 123 lb 7.342 oz BMI 24.9 BP 120/80 Blood Pressure Location Lt brachial Position Sitting Pulse 75 Intake Visit Reasons: 6 mth f/up Intake Note: 6 month follow-up Medtronic check feeling ok Inside Sales Person Required: No Allergies lisinopril Adverse Reaction (Intermediate, Verified 03/14/25 10:17) Cough bees Allergy (Intermediate, Uncoded 03/14/25 10:17) Rash Medication List - Last Reconciled 07/28/25 by Antoine Resendez MD aspirin (Adult Low Dose Aspirin) 81 mg PO DAILY atorvastatin 10 mg PO DAILY 90 days betamethasone dipropionate 0.05% 1 appl topical BID losartan 50 mg PO BID multivitamin (Daily Multi-Vitamin tablet) 1 tab PO DAILY pantoprazole 40 mg PO DAILY HPI Comments Details: Marisela comes for follow-up. She has no new cardiac symptoms. Overall doing well. Remains very active and functional. Denies any worsening shortness of breath. No orthopnea, PND, leg edema. No symptoms of palpitations. Patient denies any exertional chest pain. No lightheadedness, syncope. Takes all her medications regularly. [facility] Medical History Pericarditis CAD (coronary artery disease) Aortic stenosis Cardiac pacemaker in situ HTN (hypertension) Surgical History Hx of shoulder surgery H/O cardiac catheterization S/P TAVR (transcatheter aortic valve replacement) Hx of colonoscopy H/O tubal ligation History of hip surgery Family History Father CVD (cardiovascular disease) Mother Diabetes Social History Household Members Other:: lives alone Are you a primary healthcare administration intern to a significant other at home: No Do you presently have visiting nurse or other home services: No Alcohol intake: current Alcohol intake frequency: 0-2 drinks per day Alcohol type: wine Patient Tobacco Use Status: Never used Tobacco Review of Systems Const Denies chills, Denies fatigue, Denies fever(s), Denies frequent falls, Denies weakness, Denies weight gain and Denies weight loss ENT Denies dizziness Card Denies chest pain, Denies leg edema, Denies lightheadedness, Denies palpitations, Denies dyspnea, Denies dyspnea on exertion, Denies orthopnea and Denies other (loss of consciousness) Resp Denies cough, Denies dyspnea and Denies dyspnea on exertion GI Denies hematochezia and Denies change in stool character Musc Denies abnormal gait, Denies muscle weakness, Denies numbness, Denies radiating pain into limb and Denies tingling Neuro Denies abnormal gait, Denies dizziness, Denies frequent falls, Denies numbness, Denies tingling and Denies weakness Endo Denies fatigue and Denies palpitations Physical Exam Vital Signs: Last Vital Signs Pulse 75 07/28/25 10:43 BP 120/80 07/28/25 10:43 BMI result Body Mass Index 24.9 Const General: cooperative, comfortable, no acute distress, alert, awake, anxious and well groomed Nutritional Appearance: average body habitus Orientation/consciousness: patient oriented x3 Limitations: no limitations Neck Neck: Yes trachea midline, Yes supple and Yes no JVD Resp Effort & Inspection: normal respiratory effort Auscultation: clear to auscultation bilaterally Cardio Jugular venous distension: no JVD Palpation: normal PMI Rate: regular rate Rhythm: regular rhythm Heart sounds: S1 normal heart sound present, S2 normal heart sound present, no click, no gallops and Murmur heart sound present systolic early GI Auscultation: normal bowel sounds Skin General skin exam: no rashes or lesions noted Neuro General: patient oriented x3 and no focal motor deficits Extrem General: Yes no clubbing, cyanosis or edema Psych Appearance: grossly normal Affect: Anxious affect present Office Procedures Cardiac Device Check Cardiac Device Check Details: Dual-chamber Medtronic pacemaker in place. Programmed in MVP mode with rate response at 60 beats per minute. Minimal atrial pacing at 2.2% noted. Multiple fast ventricular rate noted consistent with SVT. Longest lasting 3 minutes. Patient does not recall any symptoms. Atrial pacing thresholds were excellent and reprogrammed to enhance battery life. Ventricular pacing thresholds excellent and reprogrammed to enhance battery life. Atrial ventricular sensing is adequate. Pacing lead impedance is stable. Battery life is at greater than 13 years [id number] Cardiac Device Check, pacemaker dual lead Procedure code (CPT) selection complete Assessment & Plan Assessment & Plan (1) S/P TAVR (transcatheter aortic valve replacement): Comment: November 2023, 26 mm Evolut Code(s): Z95.2 - Presence of prosthetic heart valve Category: Surgical Plan: Status post transcatheter aortic valve replacement working well clinically. Patient feeling a lot better since valve replacement. Continue aspirin therapy. Continue SBE prophylaxis as per ACC/aha guidelines. Continue aggressive vascular risk factor modification continue statin therapy with target goal LDL less than 70 mg/dL. Continue aggressive blood pressure control which is currently well optimized. (2) Cardiac pacemaker in situ: Comment: Poly Adaptivetronic Code(s): Z95.0 - Presence of cardiac pacemaker Category: Medical Plan: Cardiac pacemaker in-situ for post TAVR bradycardia and heart block. Minimal function and use of pacemaker. Will follow with remote telemetry. She is currently not having any symptoms related to the SVT. I would avoid any pharmacotherapy at this point time. Avoidance of stimulants was discussed. Stress mitigation strategies were discussed. Follow up in 6 months time. (3) CAD (coronary artery disease): Code(s): I25.10 - Atherosclerotic heart disease of nikolski coronary artery without angina pectoris Category: Medical Plan: Nonobstructive CAD, continue low-dose aspirin therapy. Continue aggressive blood pressure control. Continue statin therapy with target goal LDL less than 70 mg/dL. Will follow up in the clinic in 6 months time, sooner PRN. Thank you for allowing me to partake in her care Orders: Orders CA echo transthoracic complete 6 Months Z95.2 - Presence of prosthetic heart valve Coding Level of Care Code Est Pt Level 4 (78685) Complex EM visit Add On G2211 Diagnoses S/P TAVR (transcatheter aortic valve replacement) Z95.2 Cardiac pacemaker in situ Z95.0 CAD (coronary artery disease) I25.10 CPT Codes Cardiac Device Check - Cardiac Device 2: [id number] Cardiac Device Check, pacem krupa dual lead ([id number])
[2025-07-28 10:43] VITALS: BP 120/80; PULSE 75; BMI 24.9
--- OUTSIDE RECORDS SUMMARY | 2025-07-28 12:54 | XMS_ITS | Patient Health Record ---
Author Organization [facility] Address [address] [place] [address] Care Team Providers Care Medical Specialist Name Role Phone Javon Baxter MD Primary Care Provider Duncan Ferrell Unavailable [phone] Reason For Referral No Information Plan Of Treatment No Information Insurance Providers Payer Name Payer Address Payer Phone Subscriber Number Group Number Insured Name Patient Relationship to Insured Coverage Start Date Coverage End Date [facility] [address] [place] [address] [id number] MARIO PERKINS Self - patient is the insured Medical (General) History Medical History History ICD Code colonoscopy 06-17-2003 colon polyp. hypertension Surgical History Surgery Date(Month/Year) tubal ligation eye surgery
--- OUTSIDE RECORDS SUMMARY | 2025-07-28 12:54 | XMS_ITS | Clinical Summary ---
Author Organization Formerly [facility] Address [address] [place] [address] Phone Care Team Providers Care Social Services Technician Name Role Phone Javon Baxter MD Primary Care Provider [phone] Antoine Resendez MD Unavailable Alyssa Haile MD Unavailable Javon Baxter MD Unavailable [phone] Gloria Land MD Unavailable Allergies Active Allergy Reactions Criticality Noted Date Comments Lisinopril Cough High 08/05/2019 Other Maculopapular Rash Medium 09/03/2017 Bee stings Medications calcium carbonate-vitamin D3 1,500 mg (600 mg elemental)-200 units Tab Take 1 tablet by mouth daily. 750mg calcium Active aspirin 81 MG EC tablet Take 81 mg by mouth daily. Active multivitamins-min erals-folic ewjg-rvxtant-embj in (COMPLETE SENIOR) 0.4 mg-300 mcg- 250 mcg Tab Take 1 tablet by mouth daily. Active amoxicillin (AMOXIL) 500 MG capsule Take 500 mg by mouth. Prior to dental procedure. 2 Active pantoprazole (PROTONIX) 40 MG tabletIndications :Gastroesophageal reflux disease, unspecified whether esophagitis present TAKE 1 TABLET DAILY 90 tablet 3 5 Active diphenhydrAMINE (BENADRYL) 25 mg tablet Take 25 mg by mouth as needed. 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 Allergic contact dermatitis due to other agents [...] Encounters Date Type Department Care Team Description 06/23/2025 Orders Only [facility] Internal Medicine [address] [place] [address] ProviderTrevon MD 06/09/2025 8:40 AM EDT Office Visit [facility] Endocrinology [place] [address] [place] [phone] Vanessa Polo MD Age-related osteoporosis without current pathological fracture (Primary Dx) 05/26/2025 Refill [facility] Internal Medicine [address] [place] [address] Javon Baxter MD Medication Refill from Last [...] Description 08/26/2025 11:00 AM EDT Office Visit [facility] Internal Medicine [address] [place] [address] Javon Baxter MD [address] [place] [address] 12/17/2025 1:00 PM EST Office Visit [facility] [address] [place] [phone] Vanessa Polo MD [address] [place] [phone] Health Maintenance Due Date Last Done Comments Adult Td,Tdap Booster 11/15/2020 11/15/2010 INFLUENZA VACCINE (#1) 2025 , 08/07/2023, 08/07/2023, Additional history exists COVID-19 VACCINE ( season) 2025 05/26/2022, 08/31/2021, 01/18/2021, Additional history exists DEPRESSION [...] Procedure Name Priority Date/Time Associated Diagnosis Comments HM MAMMOGRAPHY Routine 06/17/2025 2:30 PM EDT HM MAMMOGRAPHY Routine 06/17/2025 9:14 AM EDT BASIC METABOLIC PANEL Routine 01/13/2025 2:55 PM EDT Essential hypertension Impaired fasting glucose BD DXA SCREENING Routine 08/14/2024 11:2 3 AM EDT Postmenopausal estrogen deficiency OUTSIDE HDL Routine 07/25/2024 HEPATITIS C ANTIBODY, QUALITATIVE Routine 11/19/2019 from Last 3 Months or Most Recently Relevant to Health Maintenance Results * MAMMOGRAPHY FOR RESULT ENTRY ONLY (06/17/2025 2:30 PM EDT) Historical Provider HEALTH MAINTENANCE Final Result * MAMMOGRAPHY FOR RESULT ENTRY ONLY (06/17/2025 9:14 AM EDT) [facility] Provider HEALTH MAINTENANCE Final Result * (ABNORMAL) Basic metabolic panel (01/13/2025 2:55 PM EDT) SODIUM 139 133 - 146 mmol/L [facility] CHLORIDE 102 96 - 108 mmol/L [facility] POTASSIUM 4.5 3.3 - 5.1 mmol/L [facility] CO2 25 21 - 35 mmol/L [facility] BUN 16 6 - 19 mg/dL [facility] CREATININE 0.70 0.5 - 1.5 mg/dL [facility] GLUCOSE 121(H) 70 - 99 mg/dL [facility] CALCIUM 9.8 8.4 - 10.3 mg/dL [facility] EGFR 88 >59 mL/min/1.7 3m2 [facility] Comment:Estimated glomerular filtration rate calculated using the CKD-EPI refit equation. ANION GAP 17 10 - 20 mmol/L [facility] Blood 01/13/2025 2:55 PM EDT 01/13/2025 3:00 PM EDT Javon Baxter MD LAB BLOOD ORDERABLES Final Re sult [facility] [address] [place] [address] * Outside HDL (07/25/2024) HDL - External 72 40 - 80 mg/dL EXTERNAL NON-INTERFACED REF LAB Result [facility] Historical Provider LAB BLOOD ORDERABLES Deana l [...] Maintenance Insurance MEDICARE PART A & B Member Subscriber Plan / Payer (Ef fective 2011-Present) Name:Richa Smith Member ID:[id number] Relation to Subscriber:Self Name:Richa Smith Subscriber ID:[id number] Payer ID:[id number] Group ID:Not on file Type:Medicare Address: [facility] [employer] [facility] [address] [facility] [place] [address] [facility] MEDICARE SUPPLEMENT MEDICARE PART A & B MEDICARE SUPPLEMENT MEDICARE PART A & B Member Subscriber Plan / Payer (Ef fective 2011-Present) Name:Richa Smith Member ID:[id number] Relation to Subscriber:Self Name:Richa Smith Subscriber ID:[id number] Payer ID:[id number] Group ID:Not on file Type:Medicare Address: [employer] [address] MEDICARE SUPPLEMENT MEDICARE PART A & B [employer] MEDICARE SUPPLEMENT MEDICARE PART A & B [employer] MEDICARE SUPPLEMENT MEDICARE PART A & B [facility] MEDICARE SUPPLEMENT MEDICARE PART A & B [facility] MEDICARE SUPPLEMENT MEDICARE PART A & B [facility] MEDICARE SUPPLEMENT MEDICARE PART A & B [facility] [employer] MEDICARE SUPPLEMENT Care Teams Social Services Technician Relationship Specialty Start Date End Date Javon Baxter MD [address] [place] [address] [email or web address] PCP - General Internal Medicine 09/03/17 Antoine Resendez MD [address] [place] [address] [place] [address] Cardiology 02/03/20 Alyssa Haile MD [address] [place] [phone] Obstetrics and Gynecology 11/02/20 Javon Baxter MD [address] [place] [address] [email or web address] Insurance Assigned Provider 02/09/24 Gloria Land MD [address] [place] [id number] Neurology 02/04/24 Additional Source Comments The information contained in this document represents components of the legal health record. It is not the complete legal health record.[facility]
--- OUTSIDE RECORDS SUMMARY | 2025-07-28 12:54 | XMS_ITS | Encounter Summary ---
Author Organization [facility] Address [address] [place] [address] Phone Care Team Providers Care Digital Photographer Name Role Phone Javon Baxter MD Primary Care Provider Antoine Resendez MD Unavailable Alyssa Haile MD Unavailable Javon Baxter MD Unavailable Gloria Land MD Unavailable [phone] Encounter Details Date Type Department Care Team (Late st Contact Info) Description 06/23/2025 Orders Only [facility] Internal Medicine [address] [place] [address] Provider, MD Trevon [address] [place] [address] Social History Tobacco Use Types Packs/Day Years Used Date Smoking Tobacco: Former Cigarettes 0.5 5 0 03/18/1965 - 11/05/1967 Smokeless Tobacco: Never Alcohol Use Standard Drinks/Week Comments Yes 3 [...] Orientation Straight 10/16/2019 2: 05 PM EST documented as of this encounter Plan of Treatment Upcoming Encounters Date Type Department Care Team (Late st Contact Info) Description 08/26/2025 11:00 AM EDT Office Visit [facility] Internal Medicine [address] [place] [address] Javon Baxter MD [address] [place] [address] 12/17/2025 1:00 PM EST Office Visit [facility] [address] [place] [phone] Vanessa Polo MD [address] [place] [phone] documented as of this encounter Procedures Procedure Name Priority Date/Time Associated Diagnosis Comments MAMMOGRAPHY Routine 06/17/2025 2:30 PM EDT MAMMOGRAPHY Routine 06/17/2025 9:14 AM EDT documented in this encounter Results * MAMMOGRAPHY FOR RESULT ENTRY ONLY (06/17/2025 2:30 PM EDT) Historical Provider HEALTH MAINTENANCE Final Result * MAMMOGRAPHY FOR RESULT ENTRY ONLY (06/17/2025 9:14 AM EDT) us Historical Provider HEALTH MAINTENANCE Final Result documented in this encounter Visit Diagnoses Not on filedocumented in this encounter Additional Health Concerns Assessment Noted Time PHQ-2 Depression Total Score: 0 08/14/20 9:42 AM EDT documented as of this encounter Care Teams Digital Photographer Relationship Specialty Start Date End Date Javon Baxter MD [address] [place] [address] PCP - General Internal Medicine 09/03/17 Antoine Resendez MD [address] [place] [address] Cardiology 02/03/20 Alyssa Haile MD [address] [place] [phone] Obstetrics and Gynecology 11/02/20 Javon Baxter MD [address] [place] [phone] Insurance Assigned Provider 02/09/24 Gloria Land MD [address] [place] [address] [address] [place] [address] Neurology 02/04/24 documented as of this encounter Additional Source Comments The information contained in this document represents components of the legal health record. It is not the complete legal health record.[facility]
== END 2025-07-28 11:13 | disposition home or self-care (01) ==
LOC: HO.HCS 10:34
PROVIDERS: PCP Internal Medicine; Visit Provider Internal Medicine Cardiovascular Disease
DX: I25.10 Atherosclerotic heart disease of native coronary artery without angina pectoris (principal); Z95.2 Presence of prosthetic heart valve; Z95.0 Presence of cardiac pacemaker
CPT/HCPCS: 93280; 99214; G2211

== ENCOUNTER → 2025-07-28 10:33 | Outpatient (BNVA) | payer MEDICARE, OTHER, SELFPAY | PROVIDERS: PCP Internal Medicine; Visit Provider Internal Medicine Cardiovascular Disease | DX: Z45.018 Encounter for adjustment and management of other part of cardiac pacemaker (principal); I25.10 Atherosclerotic heart disease of native coronary artery without angina pectoris; Z95.2 Presence of prosthetic heart valve | CPT/HCPCS: 93280; 99212 ==

== ENCOUNTER → 2025-10-21 14:12 | Outpatient (BNV) | payer MEDICARE, OTHER, SELFPAY | PROVIDERS: PCP Internal Medicine; Visit Provider Internal Medicine Cardiovascular Disease | DX: Z45.018 Encounter for adjustment and management of other part of cardiac pacemaker (principal) | CPT/HCPCS: 93294 ==